=== PATIENT | male | born 1980 | race Caucasian/White ===

== ENCOUNTER 2021-06-03 20:08 | Emergency (ER) | payer BC ==
[~2021-06-03] VITALS: Ht 182.9 cm; Wt 136.4 kg
[2021-06-03 21:12] LABS: BASOPHILS % (AUTO) 0.4 % (0-1); EOSINOPHILS % (AUTO) 0.5 % (0-6); HEMATOCRIT 41.9 % (42.0-52.0); HEMOGLOBIN 14.3 g/dl (14.0-17.9); LYMPHOCYTES # (AUTO) 2.1 X10'3 (1.1-4.8); LYMPHOCYTES % (AUTO) 30.8 % (21-51); MEAN CORPUSCULAR HEMOGLOBIN 30.5 PG (27.0-31.0); MEAN CORPUSCULAR HGB CONC 34.1 g/dL (33.0-36.5); MEAN CORPUSCULAR VOLUME 89.4 FL (78-98); MEAN PLATELET VOLUME 7.4 FL (7.4-10.4); MONOCYTES # (AUTO) 0.6 X10'3 (0-0.9); MONOCYTES % (AUTO) 8.3 % (2-12); NEUTROPHILS # (AUTO) 4.2 X10'3 (1.8-7.7); PLATELET COUNT 308 X10'3 (140-440); RED BLOOD COUNT 4.69 X10'6 (4.70-6.10); RED CELL DISTRIBUTION WIDTH 13.9 % (11.5-14.5); WHITE BLOOD COUNT 6.9 X10'3 (4.5-11.0)
[2021-06-03 21:25] LABS: ALANINE AMINOTRANSFERASE 21 U/L (12-78); ALBUMIN 4.1 G/DL (3.4-5.0); ALBUMIN/GLOBULIN RATIO 1.1 (1.1-1.5); ALKALINE PHOSPHATASE 107 IU/L (46-116); ANION GAP 13 (8-16); ASPARTATE AMINO TRANSFERASE 45 U/L (10-37); BILIRUBIN,TOTAL 0.7 MG/DL (0.1-1.0); BLOOD UREA NITROGEN 14 MG/DL (7-18); BUN/CREATININE RATIO 16.7 (5.4-32.0); CALCIUM 8.9 MG/DL (8.5-10.1); CHLORIDE 97 MMOL/L (99-107); CREATININE 0.84 MG/DL (0.60-1.10); GLUCOSE 101 MG/DL (70-104); POTASSIUM 3.9 MMOL/L (3.5-5.1); SODIUM 138 MMOL/L (135-145); TOTAL PROTEIN 7.8 G/DL (6.4-8.2); eGFR > 90 ML/MIN
[2021-06-03] MEDS ORDERED: LIDOcaine 1% W/epiNEPHrine 1:200,000 10ml vial IJ ONE (23:00)
[2021-06-03] MEDS ORDERED: TETanus/Pertussis (Acell)/Diphther VAC/PF (Tdap-Adult) 0.5ml syringe IMVAC ONE (23:00)
[2021-06-03] MEDS ORDERED: bacitracin 15gm ointment TP ONE (23:00)
[2021-06-03] MEDS ORDERED: cephalexin 500mg capsule PO ONE (23:40)
[2021-06-03] MEDS ORDERED: sulfamethoxazole/trimethoprim DS (800/160mg) tablet PO ONE (23:40)
[2021-06-03] MEDS ORDERED: MUPI22OI30 TOP (23:42)
[2021-06-03] MEDS ORDERED: CEPH250T PO (23:42)
[2021-06-03] MEDS ORDERED: SULF1TAB45 PO (23:42)
[2021-06-04 00:58] VITALS: BP 162/107
== END 2021-06-04 00:30 | disposition home or self-care (01) ==
LOC: ER 20:09
DX: S01.112A Laceration without foreign body of left eyelid and periocular area, initial encounter (principal); R51.9 Headache, unspecified; R11.10 Vomiting, unspecified; Z20.3 Contact with and (suspected) exposure to rabies; Z79.2 Long term (current) use of antibiotics; Z79.899 Other long term (current) drug therapy; X58.XXXA Exposure to other specified factors, initial encounter; Y93.89 Activity, other specified; Y92.89 Other specified places as the place of occurrence of the external cause; Y99.8 Other external cause status
CPT/HCPCS: 12011; 36415; 70450; 80053; 85025; 90471; 90715; 99284

== ENCOUNTER 2021-06-14 11:50 | Emergency (ER) | payer BC ==
[~2021-06-14] VITALS: Ht 188 cm; Wt 127.3 kg
[~2021-06-14 11:50] MED LIST: SULF1TAB45 PO
[2021-06-14 12:58] VITALS: BP 121/75
[2021-06-14] MEDS ORDERED: LITH600C PO (22:55)
[2021-06-14] MEDS ORDERED: LURA80TA3 PO (22:56)
[2021-06-14] MEDS ORDERED: TRAZ150T78 PO (22:56)
== END 2021-06-14 13:40 | disposition home or self-care (01) ==
LOC: ER 11:51
DX: S50.811A Abrasion of right forearm, initial encounter (principal); F10.229 Alcohol dependence with intoxication, unspecified; I10 Essential (primary) hypertension; E86.0 Dehydration; Z48.02 Encounter for removal of sutures; Z79.899 Other long term (current) drug therapy; W19.XXXA Unspecified fall, initial encounter; Y93.89 Activity, other specified; Y92.89 Other specified places as the place of occurrence of the external cause; Y99.8 Other external cause status; Y90.9 Presence of alcohol in blood, level not specified
CPT/HCPCS: 99283

== ENCOUNTER 2021-06-14 17:33 | Emergency (ER) | payer BC ==
[~2021-06-14] VITALS: Ht 182.9 cm; Wt 127.3 kg
[2021-06-14] MEDS ORDERED: folic acid 1mg/0.2ml inj IV ONE (17:40)
[2021-06-14] MEDS ORDERED: ondansetron/PF 4mg/2ml inj IV ONE (17:40)
[2021-06-14] MEDS ORDERED: thiamine 100mg/ml 2ml inj. IV ONE (17:40)
[2021-06-14] MEDS ORDERED: normal saline 1000ML IV soln IV ONE (17:40)
[2021-06-14 18:12] LABS: BASOPHILS % (AUTO) 0.6 % (0-1); EOSINOPHILS % (AUTO) 0 % (0-6); HEMATOCRIT 44.9 % (42.0-52.0); HEMOGLOBIN 15.2 g/dl (14.0-17.9); LYMPHOCYTES # (AUTO) 1.8 X10'3 (1.1-4.8); LYMPHOCYTES % (AUTO) 37.8 % (21-51); MEAN CORPUSCULAR HGB CONC 33.9 g/dL (33.0-36.5); MEAN CORPUSCULAR VOLUME 88.5 FL (78-98); MEAN PLATELET VOLUME 7.9 FL (7.4-10.4); MONOCYTES # (AUTO) 0.5 X10'3 (0-0.9); MONOCYTES % (AUTO) 11.5 % (2-12); NEUTROPHILS # (AUTO) 2.4 X10'3 (1.8-7.7); NEUTROPHILS % (AUTO) 50.1 % (42-75); PLATELET COUNT 129 X10'3 (140-440); RED BLOOD COUNT 5.07 X10'6 (4.70-6.10); RED CELL DISTRIBUTION WIDTH 14.2 % (11.5-14.5); WHITE BLOOD COUNT 4.7 X10'3 (4.5-11.0)
[2021-06-14 18:16] LABS: ALANINE AMINOTRANSFERASE 40 U/L (12-78); ALBUMIN 3.6 G/DL (3.4-5.0); ALBUMIN/GLOBULIN RATIO 0.9 (1.1-1.5); ALKALINE PHOSPHATASE 135 IU/L (46-116); ANION GAP 12 (8-16); ASPARTATE AMINO TRANSFERASE 76 U/L (10-37); BILIRUBIN,TOTAL 0.4 MG/DL (0.1-1.0); BLOOD UREA NITROGEN 9 MG/DL (7-18); BUN/CREATININE RATIO 8.4 (5.4-32.0); CHLORIDE 94 MMOL/L (99-107); CREATININE 1.07 MG/DL (0.60-1.10); GLUCOSE 96 MG/DL (70-104); POTASSIUM 3.6 MMOL/L (3.5-5.1); SODIUM 137 MMOL/L (135-145); TOTAL CARBON DIOXIDE 31.4 MMOL/L (24-32); TOTAL PROTEIN 7.4 G/DL (6.4-8.2); eGFR 77 ML/MIN
[2021-06-14 18:30] LABS: ETHANOL 0.433 GM/DL (0.0-0.010)
[2021-06-14 20:14] LABS: CLARITY,URINE CLEAR (Clear); COLOR,URINE YELLOW (Yellow); GLUCOSE, URINE NEGATIVE (Neg); KETONES,URINE NEGATIVE (Neg); LEUKOCYTE ESTERASE ,URINE NEGATIVE (Neg); NITRITES, URINE NEGATIVE (Neg); OCCULT BLOOD,URINE LARGE (Neg); PROTEIN,URINE TRACE mg/dl (Neg)
[2021-06-14 20:28] LABS: URINE AMPHETAMINE SCREEN NEGATIVE (Neg); URINE BARBITUATE SCREEN NEGATIVE (Neg); URINE BENZODIAZEPINES SCREEN NEGATIVE (Neg); URINE CANNABINOID SCREEN NEGATIVE (Neg); URINE COCAINE SCREEN NEGATIVE (Neg); URINE METHADONE SCREEN NEGATIVE (Neg); URINE OPIATE SCREEN NEGATIVE (Neg); URINE PHENCYCLIDINE SCREEN NEGATIVE (Neg)
[2021-06-14 20:51] LABS: UA COLLECTION TYPE CLN CATCH MIDSTREAM
[2021-06-14 20:53] LABS: BACTERIA,URINE NONE SEEN /HPF (Neg); SQUAMOUS EPITHELIAL CELL,UR FEW /LPF (FEW); WBC,URINE NONE SEEN /HPF (0-4)
--- NOTE | 2021-06-14 22:33 | NUR ---
PT WITH PIV AND GIVEN FOLIC ACID AND THIAMINE AND 3 LITERS NS BOLUS INFUSED. PT IS A&OX4 AND POLITE AND COOPERTIVE. HE REPROTS STILL WANTING TO KILL HIMSELF BY ALCOHOL. STATES SEVERE DEPRESSION. HE MOVED HERE RECENTLY FROM [place] ([facility]), AND HE HAS BEEN WORKING CONCRETE WITH HIS BROTHERS. STATES HE WAS SOBER FOR 90 DAYS AND 10 DAYS AGO HE DROVE BY A LIQUOR STORE AND DECIDED TO PURCHASE LIQUOR AND HAS BEEN BINGE DRINKING SINCE. REPORTS HE STOPPED TAKING HIS LATUDA, LITHIUM AND TRAZADONE ABOUT 1 WEEK AGO. STATES HISTORY OF INPT PSYCHIATRIC TREATMENT AND THAT HE IS BIPOLAR AND HAS DEPRESSION. 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 PT WAS JUST UP TO BR TO VOID, AMBULATING INDEPENDANTLY WITH STEADY GAIT NOW AND ROLLING IV POLE WITH HIM. PT REQUESTED TO HAVE A WITHDRAWL PROTOCOL ORDERED HE STATES HE CAN HAVE SEVERE WIRTHDRAWL. REPORTS NEVER HAVING A SEIZURE. MESSAGE LEFT WITH JOAQUIN CATES OF THIS REQUEST. PT NOW LYING IN HIS BED ON HIS RIGHT SIDE WITH BLANKETS COVERING TO HIS SHOUDERS. RR 16 AND UNLABORED. SITTER AND RN WITHIN VIEW OF PT AAT.
--- NOTE | 2021-06-14 22:48 | NUR ---
JOAQUIN CATES UPDATED THAT PT CONTINUES WITH NAUSEA. VERBAL RECEIVED FOR COMPAZINE. JOAQUIN REPORTS HE IS NOT WORRIED ABOUT PT WITHDRAWING LAST DRINK WAS JUST BEFORE COMING TO ER THIS EVENING.
[2021-06-14] MEDS ORDERED: proCHLORperazine 10 MG/2 ml inj IV ONE (22:50)
[2021-06-14] MEDS ORDERED: LITH600C PO (22:55)
[2021-06-14] MEDS ORDERED: TRAZ150T78 PO (22:56)
[2021-06-14] MEDS ORDERED: LURA80TA3 PO (22:56)
--- NOTE | 2021-06-15 01:29 | NUR ---
PT UP TO BR TO VOID. 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
[2021-06-15] MEDS ORDERED: ondansetron/PF 4mg/2ml inj IV ONE (05:25)
[2021-06-15 05:50] VITALS: BP 161/112
--- NOTE | 2021-06-15 06:46 | NUR ---
Patient up to bathroom, gait appeared steady, and then back to bed.
[2021-06-15] MEDS ORDERED: proCHLORperazine 10mg tablet PO ONE (07:35)
[2021-06-15] MEDS ORDERED: LORazepam 1 MG tablet PO ONE (07:35)
[2021-06-15] MEDS ORDERED: proCHLORperazine 10 MG/2 ml inj IV ONE (07:40)
[2021-06-15] MEDS ORDERED: LORazepam 2 mg/ml vial IV ONE (07:40)
[2021-06-15] MEDS ORDERED: chlordiazePOXIDE 25mg capsule PO ONE (07:45)
[2021-06-15] MEDS ORDERED: lithium carbonate 150mg capsule PO SCH (08:00)
--- NOTE | 2021-06-15 08:14 | NUR ---
Given ativan for shakiness/ etoh withdrawals and some compazine for nausea. Pt also given librium and educated on its use for etoh. Now sitting up eating breakfast
--- NOTE | 2021-06-15 09:51 | NUR ---
up to bathroom, states he feels a little better after the medications given
--- NOTE | 2021-06-15 12:27 | NUR ---
resting with eyes closed
--- NOTE | 2021-06-15 13:49 | NUR ---
[facility] accepting patient
--- NOTE | 2021-06-15 15:06 | NUR ---
resting with eyes closed
--- NOTE | 2021-06-15 15:35 | NUR ---
Resting in bed on right side.
[2021-06-15] MEDS ORDERED: traZODone 150mg tablet PO SCH (21:00)
[2021-06-15] MEDS ORDERED: lurasidone 20mg tablet PO SCH (21:00)
== END 2021-06-15 16:12 | disposition home or self-care (01) ==
LOC: ER 17:33
DX: F10.129 Alcohol abuse with intoxication, unspecified (principal); R45.851 Suicidal ideations; Z20.822 Contact with and (suspected) exposure to COVID-19; Z59.0 Homelessness; Y90.0 Blood alcohol level of less than 20 mg/100 ml
CPT/HCPCS: 36415; 80053; 80305; 80320; 81001; 84443; 85025; 87635; 96361; 96374; 96375; 96376; 99285; C9803; J0780; J2060; J2405; J3411; J3490; J7030

== ENCOUNTER 2021-06-15 14:26 | Inpatient (IN) | payer BC ==
[~2021-06-15] VITALS: Ht 182.9 cm; Wt 139.0 kg
[~2021-06-15 14:26] MED LIST changes: +LITH600C PO; +LURA80TA3 PO; -SULF1TAB45 PO; +TRAZ150T78 PO
[2021-06-15 16:35] VITALS: BP 135/99
--- NOTE | 2021-06-15 16:35 | NUR ---
Pt. is admitted from ER [facility] on 5150 for suicide attempt. Pt. reports this past weekend he attempted to hang himself but failed. Pt. reports SI with plan to hang himself. Pt. also reports heavy drinking for the past 10 days, drinking 2 liters of 100 proof vodka daily for 8 days and then 2 days of multiple beers. Pt. reports 90 ago he was in a detox program and going through withdrawals. Provider called and pt. placed on [facility] protocol with Q1 hour assessments. Pt. scored 22 on initial assessment. Pt. given now dose of Ativan 2mg and Zofran 8mg. Pt. reports visual hallucinations reports, seeing white lights. Pt. is A&Ox3, not to time. Pt. reports taking a falling and hitting his head this past Monday, pt. reports CT scan was done. Pt. given dinner tray and ate.
[2021-06-15] MEDS ORDERED: loperamide 2mg capsule PO PRN (16:55)
[2021-06-15] MEDS ORDERED: mag hydrox/Alum hydrox/simeth 30ml oral suspension PO PRN (16:55)
[2021-06-15] MEDS ORDERED: acetaminophen 325mg tablet PO PRN ×2 (16:55)
[2021-06-15] MEDS ORDERED: magnesium hydroxide 30ml (MOM) UD suspension PO PRN (16:55)
[2021-06-15] MEDS ORDERED: traZODone 50mg tablet PO PRN (16:55)
[2021-06-15] MEDS ORDERED: LORazepam 1 MG tablet PO ONE (17:35)
[2021-06-15] MEDS ORDERED: ondansetron 4mg rapidly disintigrating tab PO PRN (17:40)
[2021-06-15 20:00] VITALS: BP 135/89
[2021-06-15] MEDS: lithium carbonate 150mg capsule PO SCH (20:13)
[2021-06-15] MEDS: traZODone 150mg tablet PO SCH (20:13)
[2021-06-15] MEDS: gabapentin 300mg capsule PO SCH (20:38)
[2021-06-15] MEDS: LORazepam 1 MG tablet PO PRN (23:25)
--- NOTE | 2021-06-16 04:30 | NUR ---
Nursing Progress Note: Ambrocio Legal hold: 5150 Expires 06/18/21 @ 9170 Client on involuntary status for DTS. Report received from Palmira MILLER with use of SBAR . Why are they here: Pt. is admitted from ER overflow on 5149 for suicide attempt. Pt. reports this past weekend he attempted to hang himself but failed. Pt. reports SI with plan to hang himself. Pt. also reports heavy drinking for the past 10 days, drinking 2 liters of 100 proof vodka daily for 8 days and then 2 days of multiple beers. Pt. reports 90 ago he was in a detox program and going through withdrawals. Provider called and pt. placed on CIWA protocol with Q1 hour assessments. Pt. scored 22 on initial assessment. Pt. given now dose of Ativan 2mg and Zofran 8mg. Pt. reports visual hallucinations reports, seeing white lights. Pt. is A&Ox3, not to time. Pt. reports taking a falling and hitting his head this past Monday, pt. reports CT scan was done. Assessment What has happened this shift: Received pt lying in bed awake, pt calm and cooperative with care. Pt states he has +SI with a plan to hang himself however he contracts for safety here. HE states he thinks about his daughter and that is the reason he stops himself from acting out. Pt states he just moved here from [facility] and was living with his and daughter, he stopped taking his meds and decided to start drinking again. He states he spirals out of control, drinking 2 bottles of vodka for the last 10 days, last drink being yesterday. He feels shame and guilt, he wants to end the pain but he thinks about his daughter and thats what keeps him focused. CIWA assessment done every hour. Patients anxiety rated at 4/10, 1MG Ativan given with good effect. Patient diaphoretic and complains of general body ache, declines Tylenol. Pt slept fairly well during the night. S/I, H/I: +SI, with plans to hang himself A/VH: +VH, seeing white spots Sleep: ADL's: Independent Group attendance: Were meds taken: Yes, declined Neurontin Any med S/E: N/A Mental Status Exam Appearance: Clean, dressed in green scrubs Eye contact: good Behavior: Cooperative, anxious, depressed Speech: Clear, audible, normal rate and rhythm Mood: Depressed Affect: Depressed Thought process: Feelings of shame and guilt Thought Content: Feeling anxious Cognition: A&O Insight: Poor Judgment: Poor Interventions PRN's used: None. Therapeutic interventions: 1:1 assessment, establishment of rapport, therapeutic conversation, active listening, ensured contract for safety, medication administration/education/monitoring, provided distraction, redirection, encouragement, and positive reinforcement, Q 15 minute safety checks. CIWA per Dr Meyer. Restraints/seclusion/emergency medication: None Justification of Continued Inpatient Treatment: Patient is here for a suicide attempt. Patient requires interruption of current crisis, medication management and monitoring, and a safe and supportive environment.
[2021-06-16] MEDS: lithium carbonate 150mg capsule PO SCH ×2 (07:04→20:32)
[2021-06-16] MEDS: LORazepam 1 MG tablet PO PRN ×4 (07:04→23:31)
[2021-06-16] MEDS: gabapentin 300mg capsule PO SCH ×3 (07:04→20:36)
[2021-06-16] MEDS: multivitamins, therapeutics tablet PO SCH (07:04)
[2021-06-16] MEDS: folic acid 1mg tablet PO SCH (07:04)
[2021-06-16 07:06] LABS: HEMOGLOBIN A1C 5.7 % (4.5-6.2)
[2021-06-16 07:16] LABS: CHOL/HDL RATIO 1.5 (0.00-4.99); CHOLESTEROL 206 MG/DL (0-200); HDL CHOLESTEROL 134 MG/DL (35-60); LDL CHOLESTEROL 35 MG/DL (50-100); TRIGLYCERIDES 32 MG/DL (20-135)
[2021-06-16 08:00] VITALS: BP 135/75
[2021-06-16] MEDS ORDERED: thiamine 100mg tablet PO ONE (08:00)
--- NOTE | 2021-06-16 14:44 | NUR ---
Completed and faxed referral to [facility] for follow up upon discharge. RAHAT Montenegro
--- NOTE | 2021-06-16 17:32 | NUR ---
Nursing Progress Note: HEATHER Legal hold: 5150 Expires 06/18/21 @ 5896 Client on involuntary status for DTS. Report received from ANGELA Morgan with use of SBAR . Why are they here: Pt. is admitted from ER overflow on 5149 for suicide attempt. Pt. reports this past weekend he attempted to hang himself but failed. Pt. reports SI with plan to hang himself. Pt. also reports heavy drinking for the past 10 days, drinking 2 liters of 100 proof vodka daily for 8 days and then 2 days of multiple beers. Pt. reports 90 ago he was in a detox program and going through withdrawals. Provider called and pt. placed on CIWA protocol with Q1 hour assessments. Pt. scored 22 on initial assessment. Pt. given now dose of Ativan 2mg and Zofran 8mg. Pt. reports visual hallucinations reports, seeing white lights. Pt. is A&Ox3, not to time. Pt. reports taking a falling and hitting his head this past Monday, pt. reports CT scan was done. Assessment What has happened this shift: Received patient sleeping at shift change, no distress noted. Pt aroused to name. Patient diaphoretic and complained of general body aches and nausea. Declined Tylenol and Zofran. Pt CIWA score was 8, so 1 mg Ativan was administered with effect. Pt was pleasant and cooperative with care and medication. Pt woke ate breakfast then returned to his room to sleep. Per Dr. Meyer CIRICK assessment was changed to q6hrs. Pt is depressed and remorseful. Pt continues to endorse suicidal thoughts of hanging himself if Im truthful. Pt states he wants to live and is tired of being that glynn. Pts denies AH, but states I see white spots, not sure what that means. Pt states I am tired of letting people down. Pt isolated to his room sleeping. He attends all meals with good appetite. S/I, H/I: +SI, with plans to hang himself. I want to live. A/VH: +VH, seeing white spots Sleep: 8.75 hours per sleep assessment. Slept intermittently throughout shift. ADL's: Independent Group attendance: No scheduled group today. Were meds taken: Yes, without issue. Any med S/E: N/A Mental Status Exam Appearance: Clean, disheveled, short horne. Dressed in green scrubs Eye contact: Good Behavior: Cooperative, fatigued, depressed. Isolated to his bed. Up for meals. Speech: Clear, audible, normal rate and rhythm Mood: Depressed Affect: Depressed Thought process: Feelings of shame and guilt Thought Content: Feeling anxious Cognition: A&O x4 Insight: Poor Judgment: Poor Interventions PRN's used: None. Therapeutic interventions: 1:1 assessment, establishment of rapport, therapeutic conversation, active listening, ensured contract for safety, medication administration/education/monitoring, provided distraction, redirection, encouragement, and positive reinforcement, Q 15 minute safety checks. CIWA per Dr Meyer. Restraints/seclusion/emergency medication: None Justification of Continued Inpatient Treatment: Patient is here for a suicide attempt. Patient requires interruption of current crisis, medication management and monitoring, and a safe and supportive environment.
[2021-06-16 20:00] VITALS: BP 153/97
[2021-06-16] MEDS: traZODone 150mg tablet PO SCH (20:31)
--- NOTE | 2021-06-17 02:32 | NUR ---
Nursing Progress Note: HEATHER Legal hold: 5150 Expires 06/18/21 @ 8550 Client on involuntary status for DTS. Report received from Ajay MILLER with use of SBAR . Why are they here: Pt. is admitted from ER overflow on 5149 for suicide attempt. Pt. reports this past weekend he attempted to hang himself but failed. Pt. reports SI with plan to hang himself. Pt. also reports heavy drinking for the past 10 days, drinking 2 liters of 100 proof vodka daily for 8 days and then 2 days of multiple beers. Pt. reports 90 ago he was in a detox program and going through withdrawals. Provider called and pt. placed on CIWA protocol with Q1 hour assessments. Pt. scored 22 on initial assessment. Pt. given now dose of Ativan 2mg and Zofran 8mg. Pt. reports visual hallucinations reports, seeing white lights. Pt. is A&Ox3, not to time. Pt. reports taking a falling and hitting his head this past Monday, pt. reports CT scan was done. Assessment What has happened this shift: Received patient up in the rec room watching TV, no distress noted. Pts BP slightly elevated, 153/94, Casandra MILLER from day shift notified Dr Meyer, 1MG Ativan given with good effect. Pts BP 119/80. Pt continued to be on CIWA every 6 hours. Pt states he is more hopeful, he talked with his dad today which he hadnt done in over 15 days. He also go to talk to his brother so it was nice to talk with him as well. Pt up for a snack, took all prescribed medication without issue. S/I, H/I: +SI (somewhat) does not have a plan A/VH: +VH, seeing white spots Sleep: ADL's: Independent Group attendance: No scheduled group today. Were meds taken: Yes, without issue. Any med S/E: N/A Mental Status Exam Appearance: Clean, disheveled, short horne. Dressed in green scrubs Eye contact: Good Behavior: Cooperative, fatigued, depressed. Isolated to his bed. Up for meals. Speech: Clear, audible, normal rate and rhythm Mood: Depressed Affect: Depressed Thought process: Feelings of shame and guilt Thought Content: Feeling anxious Cognition: A&O x4 Insight: Poor Judgment: Poor Interventions PRN's used: None. Therapeutic interventions: 1:1 assessment, establishment of rapport, therapeutic conversation, active listening, ensured contract for safety, medication administration/education/monitoring, provided distraction, redirection, encouragement, and positive reinforcement, Q 15 minute safety checks. CIWA per Dr Meyer. Restraints/seclusion/emergency medication: None Justification of Continued Inpatient Treatment: Patient is here for a suicide attempt. Patient requires interruption of current crisis, medication management and monitoring, and a safe and supportive environment.
[2021-06-17 07:24] VITALS: BP 113/81
[2021-06-17] MEDS: multivitamins, therapeutics tablet PO SCH (07:43)
[2021-06-17] MEDS: folic acid 1mg tablet PO SCH (07:43)
[2021-06-17] MEDS: gabapentin 300mg capsule PO SCH ×3 (07:43→20:40)
[2021-06-17] MEDS: lithium carbonate 150mg capsule PO SCH ×2 (07:44→20:40)
--- NOTE | 2021-06-17 09:08 | NUR ---
PSYCHOSOCIAL ASSESSMENT Met with Ambrocio to complete psychosocial assessment. Ambrocio is a 41 y/o male who was placed on 515 for danger to self. He had presented to [facility] on 06/14/21 around noon via EMS after he had fallen outside of [facility] where he had been staying. He was intoxicated and had an abrasion to his arm and his head. He was discharged from the ED, went to a gas station and consumed more alcohol. He was found down and was returned to the ED via EMS a couple hours later. He made suicidal statements to staff and was placed on 1798. He stated, "I just want to ". He also reported he tried to hang himself recently. Ambrocio reported he recently moved to [place] 4-5 weeks ago with his family. He currently lives with his parents. He works with his 3 brothers at [employer]. 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 His kicked him out around the same time he got a DUI Dec 2019. He lost his job due to the DUI and he has to forfeit his license for 3 years (he reported due to Covid it took about a year for him to go to court for it). He reported he went to rehab at [facility] after he lost his job for about 60 days. He reported he was sober for about 90 before he relapsed. He relapsed while living in his parents home about 2 weeks ago. His parents kicked him out due to his alcohol use. He stayed at [facility] for 5 days and gave someone $1000 who he saw in the hallway at [facility]. He also reported he ordered a ton of room service that he did not eat. He reported he left his phone at his parents house on purpose and did not have any contact with anyone for 15 days. He finally called his dad once he got to [facility]. He reported he was feeling depressed, lonely, and had stopped taking his medications when he relapsed. He reported he has been to rehab 4 times in the last 4 years. He reported a 20 year history of alcohol use. He noted he is not sure if he wants to go back to rehab. He reported he would like to return to his parents house and to his job. He reported he thinks that may be more helpful than going to rehab. He is also doing his DUI classes via zoom through a place in [place] and his concerned that he has missed a couple classes. Ambrocio reported he was diagnosed with Bipolar about 4 years ago. He has been hospitalized a couple times due to being suicidal. He reported he tried to strangle himself with a cord while staying at the [facility]. MSE: A/O: oriented x's 4 Appearance: tall, overweight 41 y/o male, wearing baseball cap, facial hair, wearing green scrubs Behavior: cooperative Speech: WNL Mood: depressed, hopeless Affect: congruent to mood Thought Process: WNL Thought Content: goal directed Plan: Cyber Forensics Analyst will assist with discharge plan and referrals for psychiatrist, therapist, and in-patient or out-patient alcohol txRAHAT Dhillon Addendum: 06/17/21 at 0914 by Osiris BEST Amended: Links added.
--- NOTE | 2021-06-17 10:01 | NUR ---
Faxed letter stating Ambrocio is currently in the hospital to [facility]ino[facility], ( ), at his request. RAHAT Montenegro
--- NOTE | 2021-06-17 12:03 | NUR ---
PHONE CALL W/MOTHER Called Ambrocio's mother, Sandra (ph# [phone]), at his request. She reported Ambrocio can return home as long as he remains sober. Informed her that he called and left a message about a job in [place] and she was relieved he was able to do to that. Informed her that he said he would like to look for a sober living home after discharge. Ambrocio also called [facility] and has an intake appt for therapy on 07/14/21. Sandra thanked telegraphic typewriter operator for calling. RAHAT Montenegro
[2021-06-17] MEDS: LORazepam 1 MG tablet PO PRN ×2 (13:04→18:46)
--- NOTE | 2021-06-17 17:54 | NUR ---
Nursing Progress Note: Legal hold: 5150 Expires 06/18/21 @ 0395 Client on involuntary status for DTS Report received from RN with use of SBAR Why are they here: Pt. is admitted from ER overflow on 5149 for suicide attempt. Pt. reports this past weekend he attempted to hang himself but failed. Pt. reports SI with plan to hang himself. Pt. also reports heavy drinking for the past 10 days, drinking 2 liters of 100 proof vodka daily for 8 days and then 2 days of multiple beers. Pt. reports 90 ago he was in a detox program and going through withdrawals. Provider called and pt. placed on CIWA protocol with Q1 hour assessments. Pt. scored 22 on initial assessment. Pt. given now dose of Ativan 2mg and Zofran 8mg. Pt. reports visual hallucinations reports, seeing white lights. Pt. is A&Ox3, not to time. Pt. reports taking a falling and hitting his head this past Monday, pt. reports CT scan was done. Assessment What has happened this shift: Pt in bed sleeping w/o distress at the beginning of the shift. Pt woke and was cooperative with vitals and AM assessments. Pt took scheduled meds w/o issue. Pts CIWA at 0605 was 5; CIWA at 1245 was 14 and Pt given Ativan 1mg. Pt napped in AM and PM and isolated to self most of the day, even when in community or recreation room watching TV. Pt spoke about his DUI and how [place] is so hard on DUIs. Pt reported forfeiting his license due to finance and other pressures from DUI. Pt admits to having ETOH addiction Im an alcoholic. Pt has vague SI with no current plan. Pt concerned about getting letter to DUI class stating he is under care of a physician. And getting phone #s off phone related to a job he may get. Able to be excited about future plans. S/I, H/I: Denies SI/HI A/VH: Having visual disturbances, not hallucinations Sleep: Napped in AM and PM ADL's: Independent Group attendance: NA Were meds taken: Yes, without issue Any med S/E: N/A Mental Status Exam Appearance: Clean, disheveled, in green scrubs Eye contact: Good Behavior: Cooperative, tired, depressed, isolative Speech: Clear, audible, normal Mood: Depressed Affect: Congruent with mood Thought process: Linear Thought Content: Talked about DUI Cognition: A&O x4 Insight: Poor Judgment: Poor Interventions PRN's used: Ativan Therapeutic interventions: 1:1 assessment, establishment of rapport, therapeutic conversation, active listening, ensured contract for safety, medication administration/education/monitoring, provided distraction, redirection, encouragement, and positive reinforcement, Q 15 minute safety checks. CIWA per Dr Meyer. Restraints/seclusion/emergency medication: None Justification of Continued Inpatient Treatment: Patient is here for a suicide attempt. Patient requires interruption of current crisis, medication management and monitoring, and a safe and supportive environment.
[2021-06-17 20:00] VITALS: BP 123/75
[2021-06-17] MEDS: traZODone 150mg tablet PO SCH (20:40)
[2021-06-17] MEDS: traZODone 50mg tablet PO SCH (21:00)
--- NOTE | 2021-06-18 02:54 | NUR ---
Nursing Progress Note: Ambrocio Legal hold: 5150 Expires 06/18/21 @ 7478 Client on involuntary status for DTS Report received from RN with use of SBAR Why are they here: Pt. is admitted from ER overflow on 5149 for suicide attempt. Pt. reports this past weekend he attempted to hang himself but failed. Pt. reports SI with plan to hang himself. Pt. also reports heavy drinking for the past 10 days, drinking 2 liters of 100 proof vodka daily for 8 days and then 2 days of multiple beers. Pt. reports 90 ago he was in a detox program and going through withdrawals. Provider called and pt. placed on CIWA protocol with Q1 hour assessments. Pt. scored 22 on initial assessment. Pt. given now dose of Ativan 2mg and Zofran 8mg. Pt. reports visual hallucinations reports, seeing white lights. Pt. is A&Ox3, not to time. Pt. reports taking a falling and hitting his head this past Monday, pt. reports CT scan was done. Assessment What has happened this shift: Pt in community room watching a movie with peers, stated he was doing a little better today. He talked again with his dad and has a lot of family support. Pts CIWA at 1845 was 14, 1MG of Ativan given with good effect. Pts CIWA at 0130 was 7, pt stated his nausea and anxiety was minimal. Pt up for a snack and took HS medication without any issue. S/I, H/I: Denies SI/HI A/VH: Having visual disturbances, seeing some shadows Sleep: ADL's: Independent Group attendance: NA Were meds taken: Yes, without issue Any med S/E: N/A Mental Status Exam Appearance: Clean, disheveled, in green scrubs Eye contact: Good Behavior: Cooperative, tired, depressed, isolative Speech: Clear, audible, normal Mood: Depressed Affect: Congruent with mood Thought process: Linear Thought Content: talking with family Cognition: A&O x4 Insight: Poor Judgment: Poor Interventions PRN's used: Ativan Therapeutic interventions: 1:1 assessment, establishment of rapport, therapeutic conversation, active listening, ensured contract for safety, medication administration/education/monitoring, provided distraction, redirection, encouragement, and positive reinforcement, Q 15 minute safety checks. CIWA per Dr Meyer. Restraints/seclusion/emergency medication: None Justification of Continued Inpatient Treatment: Patient is here for a suicide attempt. Patient requires interruption of current crisis, medication management and monitoring, and a safe and supportive environment.
[2021-06-18 08:00] VITALS: BP 137/96
[2021-06-18] MEDS: folic acid 1mg tablet PO SCH (08:00)
[2021-06-18] MEDS: multivitamins, therapeutics tablet PO SCH (08:00)
[2021-06-18] MEDS: gabapentin 300mg capsule PO SCH ×3 (08:00→20:34)
[2021-06-18] MEDS: lithium carbonate 150mg capsule PO SCH ×2 (08:01→20:34)
--- NOTE | 2021-06-18 16:17 | NUR ---
Nursing Progress Note: Legal hold: 525 Client on involuntary status for DTS Report received from RN with use of SBAR Why are they here: Pt. is admitted from ER overflow on 5150 for suicide attempt. Pt. reports this past weekend he attempted to hang himself but failed. Pt. reports SI with plan to hang himself. Pt. also reports heavy drinking for the past 10 days, drinking 2 liters of 100 proof vodka daily for 8 days and then 2 days of multiple beers. Pt. reports 90 ago he was in a detox program and going through withdrawals. Provider called and pt. placed on CIWA protocol with Q1 hour assessments. Pt. scored 22 on initial assessment. Pt. given now dose of Ativan 2mg and Zofran 8mg. Pt. reports visual hallucinations reports, seeing white lights. Pt. is A&Ox3, not to time. Pt. reports taking a falling and hitting his head this past Monday, pt. reports CT scan was done. Assessment What has happened this shift: Patient was asleep at shift change, vitals done for daily as well as CIWA. CIWA scores given to Dr. Meyer, per Dr. Meyer CIWA can be TID. Patient scored very low most of the day. Patient did show a sigh of irritability when he asked about restarting his mediation and was told not yet, patient states "he just wants to keep me here one more day". Patient attended all meals, group and watched a movie with peers. S/I, H/I: Denies SI/HI A/VH: Denies "sleep really helped" Sleep: Napped in the morning ADL's: Independent Group attendance: NA Were meds taken: Yes, without issue Any med S/E: N/A Mental Status Exam Appearance: Clean, disheveled, in green scrubs Eye contact: Good Behavior: Cooperative, tired, depressed, isolative Speech: Clear, audible, normal Mood: Depressed Affect: Congruent with mood Thought process: Linear Thought Content: Talked about DUI and drinking way too much daily Cognition: A&O x4 Insight: Poor Judgment: Poor Interventions PRN's used: none needed today Therapeutic interventions: 1:1 assessment, establishment of rapport, therapeutic conversation, active listening, ensured contract for safety, medication administration/education/monitoring, provided distraction, redirection, encouragement, and positive reinforcement, Q 15 minute safety checks. CIWA per Dr Meyer changed to TID while awake Restraints/seclusion/emergency medication: None Justification of Continued Inpatient Treatment: Patient can not come up with a good safety plan if discharged home to his parents, "I don't want to be here but I don't think I could help my self if I got into a dark place" Patient needs more time in a controlled environment and medication adjustments.
[2021-06-18] MEDS ORDERED: venlafaxine XR 37.5mg cap (Q24H) PO ONE (16:20)
[2021-06-18] MEDS: LORazepam 1 MG tablet PO PRN (19:38)
[2021-06-18 19:56] VITALS: BP 130/82
[2021-06-18 20:06] VITALS: BP 130/82
[2021-06-18] MEDS: traZODone 50mg tablet PO SCH (20:34)
--- NOTE | 2021-06-19 00:59 | NUR ---
Nursing Progress Note: Ambroc[facility] Legal hold: 5250 Client on involuntary status for DTS Report received from RN with use of SBAR Why are they here: Pt. is admitted from ER overflow on 5150 for suicide attempt. Pt. reports this past weekend he attempted to hang himself but failed. Pt. reports SI with plan to hang himself. Pt. also reports heavy drinking for the past 10 days, drinking 2 liters of 100 proof vodka daily for 8 days and then 2 days of multiple beers. Pt. reports 90 ago he was in a detox program and going through withdrawals. Provider called and pt. placed on CIWA protocol with Q1 hour assessments. Pt. scored 22 on initial assessment. Pt. given now dose of Ativan 2mg and Zofran 8mg. Pt. reports visual hallucinations reports, seeing white lights. Pt. is A&Ox3, not to time. Pt. reports taking a falling and hitting his head this past Monday, pt. reports CT scan was done. Assessment What has happened this shift: Patient was up in his room talking on the phone. Pt observed in the community watching TV, pt calm and cooperative with care. Stated he feels somewhat anxious because he just had a stressful phone call with a family member. 1MG Ativan given with good effect. CIWA score at 2200, 3. Pt not very happy with his 5250 but he understands what needs to be done. Pt up for snacks, took all prescribed and went to bed, no s/s of distress noted. S/I, H/I: Denies SI/HI A/VH: Denies Sleep ADL's: Independent Group attendance: NA Were meds taken: Yes, without issue Any med S/E: N/A Mental Status Exam Appearance: Clean, disheveled, in green scrubs Eye contact: Good Behavior: Cooperative, tired, depressed, isolative Speech: Clear, audible, normal Mood: Depressed Affect: Congruent with mood Thought process: Linear Thought Content: Had a stressful day, served 5250, talked with some family members Cognition: A&O x4 Insight: Poor Judgment: Poor Interventions PRN's used: none needed today Therapeutic interventions: 1:1 assessment, establishment of rapport, therapeutic conversation, active listening, ensured contract for safety, medication administration/education/monitoring, provided distraction, redirection, encouragement, and positive reinforcement, Q 15 minute safety checks. CIWA per Dr Meyer changed to TID while awake Restraints/seclusion/emergency medication: None Justification of Continued Inpatient Treatment: Patient can not come up with a good safety plan if discharged home to his parents, "I don't want to be here but I don't think I could help my self if I got into a dark place" Patient needs more time in a controlled environment and medication adjustments.
[2021-06-19] MEDS: LORazepam 1 MG tablet PO PRN ×2 (04:18→19:28)
[2021-06-19 07:22] VITALS: BP 123/82
[2021-06-19] MEDS: venlafaxine XR 75mg capsule (Q24H) PO SCH (08:17)
[2021-06-19] MEDS: multivitamins, therapeutics tablet PO SCH (08:17)
[2021-06-19] MEDS: folic acid 1mg tablet PO SCH (08:17)
[2021-06-19] MEDS: gabapentin 300mg capsule PO SCH ×3 (08:18→21:43)
[2021-06-19] MEDS: lithium carbonate 150mg capsule PO SCH ×2 (08:18→21:43)
[2021-06-19 13:00] VITALS: BP 122/84
--- NOTE | 2021-06-19 15:44 | NUR ---
Nursing Progress Note: Legal hold: 525 Client on involuntary status for DTS Report received from RN with use of SBAR Why are they here: Pt. is admitted from ER overflow on 5150 for suicide attempt. Pt. reports this past weekend he attempted to hang himself but failed. Pt. reports SI with plan to hang himself. Pt. also reports heavy drinking for the past 10 days, drinking 2 liters of 100 proof vodka daily for 8 days and then 2 days of multiple beers. Pt. reports 90 ago he was in a detox program and going through withdrawals. Provider called and pt. placed on CIWA protocol with Q1 hour assessments. Pt. scored 22 on initial assessment. Pt. given now dose of Ativan 2mg and Zofran 8mg. Pt. reports visual hallucinations reports, seeing white lights. Pt. is A&Ox3, not to time. Pt. reports taking a falling and hitting his head this past Monday, pt. reports CT scan was done. Assessment What has happened this shift: Patient was asleep at shift change, vitals done for daily as well as CIWA. CIWA scores given to Dr. Meyer, per Dr. Meyer CIWA can be TID. Patient scored very low most of the day. Patient did show a sigh of irritability per NOC at 0430, patient states it was helpful. Patient denies any withdraw symptoms, patient remains on TID vitals per Dr. Meyer. This television writer had a long conversation with patient about "where he will go in life from here", patient states that is a good question, patient states although there is a family business I can work at I would like to have my own independence at take a job elsewhere, patient then goes on to state that his parents are in there 70's and they would like to have him around the house to help. Patient story and moods are incongruent. Patient needs more time to stabilize on his medication and come up with a good safe discharge plan to ensure his lifes safety. S/I, H/I: Denies SI/HI A/VH: Denies "sleep really helped" Sleep: Napped in the morning ADL's: Independent Group attendance: NA Were meds taken: Yes, without issue Any med S/E: N/A Mental Status Exam Appearance: Clean, disheveled, in green scrubs Eye contact: Good Behavior: Cooperative, tired, depressed, isolative Speech: Clear, audible, normal Mood: Depressed Affect: Congruent with mood Thought process: Linear Thought Content: Talked about DUI and drinking way too much daily Cognition: A&O x4 Insight: Poor Judgment: Poor Interventions PRN's used: none needed today Therapeutic interventions: 1:1 assessment, establishment of rapport, therapeutic conversation, active listening, ensured contract for safety, medication administration/education/monitoring, provided distraction, redirection, encouragement, and positive reinforcement, Q 15 minute safety checks. CIWA per Dr Meyer changed to TID while awake Restraints/seclusion/emergency medication: None Justification of Continued Inpatient Treatment: Patient can not come up with a good safety plan if discharged home to his parents, " I don't think I could help my self if I got into a dark place, I don't even know when I am there" "I end up with a bottle of 100% proof and don't even remember buying it" Patient needs more time in a controlled environment and medication adjustments.
[2021-06-19 19:53] VITALS: BP 127/84
[2021-06-19 20:06] VITALS: BP 127/84
[2021-06-19] MEDS: traZODone 50mg tablet PO SCH (21:44)
--- NOTE | 2021-06-20 01:24 | NUR ---
Nursing Progress Note: Ambrocio Legal hold: 5250 Client on involuntary status for DTS Report received from RN with use of SBAR Why are they here: Pt. is admitted from ER overflow on 5150 for suicide attempt. Pt. reports this past weekend he attempted to hang himself but failed. Pt. reports SI with plan to hang himself. Pt. also reports heavy drinking for the past 10 days, drinking 2 liters of 100 proof vodka daily for 8 days and then 2 days of multiple beers. Pt. reports 90 ago he was in a detox program and going through withdrawals. Provider called and pt. placed on CIWA protocol with Q1 hour assessments. Pt. scored 22 on initial assessment. Pt. given now dose of Ativan 2mg and Zofran 8mg. Pt. reports visual hallucinations reports, seeing white lights. Pt. is A&Ox3, not to time. Pt. reports taking a falling and hitting his head this past Monday, pt. reports CT scan was done. Assessment What has happened this shift: Patient up in his room making his bed, calm and cooperative with care. States his day was good, however expressed some depression and lack of energy. Pt requesting Ativan due to family stressors. States anxiety level 5/10, thinking about upcoming events and having to make up for it after the things he has done. Pt denies MH symptoms stating he is no longer suicidal nor having visual hallucinations. He states he is eating well and denies all other alcohol withdrawal symptoms. Pts CIWA at 2200 was 2. Pt took all HS medication and went to bed. S/I, H/I: Denies SI/HI A/VH: Denies Sleep: ADL's: Independent, showered this evening Group attendance: NA Were meds taken: Yes, without issue Any med S/E: N/A Mental Status Exam Appearance: Clean, disheveled, in green scrubs Eye contact: Good Behavior: Cooperative, tired, depressed, isolative Speech: Clear, audible, normal Mood: Depressed Affect: Congruent with mood Thought process: Linear Thought Content: family issues Cognition: A&O x4 Insight: Poor Judgment: Poor Interventions PRN's used: Ativan Therapeutic interventions: 1:1 assessment, establishment of rapport, therapeutic conversation, active listening, ensured contract for safety, medication administration/education/monitoring, provided distraction, redirection, encouragement, and positive reinforcement, Q 15 minute safety checks. CIWA per Dr Meyer changed to TID while awake Restraints/seclusion/emergency medication: None Justification of Continued Inpatient Treatment: Patient can not come up with a good safety plan if discharged home to his parents, " I don't think I could help my self if I got into a dark place, I don't even know when I am there" "I end up with a bottle of 100% proof and don't even remember buying it" Patient needs more time in a controlled environment and medication adjustments.
[2021-06-20 08:00] VITALS: BP 128/84
[2021-06-20] MEDS: venlafaxine XR 75mg capsule (Q24H) PO SCH (08:10)
[2021-06-20] MEDS: gabapentin 300mg capsule PO SCH ×3 (08:11→21:27)
[2021-06-20] MEDS: folic acid 1mg tablet PO SCH (08:11)
[2021-06-20] MEDS: lithium carbonate 150mg capsule PO SCH ×2 (08:11→21:27)
[2021-06-20] MEDS: multivitamins, therapeutics tablet PO SCH (08:11)
--- NOTE | 2021-06-20 11:40 | NUR ---
Initial: Pt admitted w/ SI, noted that pt also abused EtOH in the last 10 days. Pt is able to eat well now, mostly 100% of meals on Regular diet meeting needs. No N/V/D noted, LBM 06/18. Pt compliant w/ meds. No nutritional diagnosis at this time, will continue to monitor Recs: 1. Continue w/ Regular diet as tolerated 2. Bowel care per rx 3. Weekly wts Addendum: 06/20/21 at [address] Amended: Links added.
--- NOTE | 2021-06-20 14:41 | NUR ---
Nursing Progress Note: Legal hold: 5249 Client on involuntary status for DTS. Report received from ANGELA Morgan with use of SBAR . Why are they here: Pt. is admitted from ER overflow on 5149 for suicide attempt. Pt. reports this past weekend he attempted to hang himself but failed. Pt. reports SI with plan to hang himself. Pt. also reports heavy drinking for the past 10 days, drinking 2 liters of 100 proof vodka daily for 8 days and then 2 days of multiple beers. Pt. reports 90 ago he was in a detox program and going through withdrawals. Provider called and pt. placed on CIWA protocol with Q1 hour assessments. Pt. scored 22 on initial assessment. Pt. given now dose of Ativan 2mg and Zofran 8mg. Pt. reports visual hallucinations reports, seeing white lights. Pt. is A&Ox3, not to time. Pt. reports taking a falling and hitting his head this past Monday, pt. reports CT scan was done. Assessment What has happened this shift: Pt was up for breakfast and cooperative with medications. Pt requested his diet be changed to double protein as he has a Hx of gastric bypass surgery. Pt rated his depression at a 1/10 today, pt denied SI. Pt has no withdrawal signs or symptoms. Pt indicates that he plans on continuing to take his meds once discharged and has an appointment set up with Dr Barbosa in July. Pt has good insight. Pt identified reasons to live and is future oriented. S/I, H/I: Pt denies. A/VH: Pt denies. Sleep: Pt slept 7.25 hours per noc shift report. ADL's: Independent Group attendance: N/A Were meds taken: Yes Any med S/E: None noted or reported. Mental Status Exam Appearance: Tall heavy-set man with facial stubble wearing a baseball cap and street clothes. Eye contact: Good Behavior: Pleasant, cooperative, spends time in the milieu, likes to watch TV in the community room. Speech: Clear, audible, normal rate and rhythm Mood: Euthymic Affect: Appropriate to situation. Thought process: Organized Thought Content: Future/goal oriented, ready for discharge. Cognition: A&O x4 Insight: Good Judgment: Fair Interventions PRN's used: None. Therapeutic interventions: 1:1 assessment, establishment of rapport, therapeutic conversation, active listening, ensured contract for safety, medication administration/education/monitoring, provided distraction, redirection, encouragement, and positive reinforcement, Q 15 minute safety checks. Restraints/seclusion/emergency medication: None Justification of Continued Inpatient Treatment: Patient is here for a suicide attempt. Patient requires interruption of current crisis, medication management and monitoring, and a safe and supportive environment until stable.
[2021-06-20 19:00] VITALS: BP 108/75
[2021-06-20] MEDS: traZODone 50mg tablet PO SCH (21:27)
--- NOTE | 2021-06-21 05:36 | NUR ---
Nursing Progress Note: Legal hold: 5249 Client on involuntary status for DTS. Report received from ANGELA Morgan with use of SBAR . Why are they here: Pt. is admitted from ER overflow on 5149 for suicide attempt. Pt. reports this past weekend he attempted to hang himself but failed. Pt. reports SI with plan to hang himself. Pt. also reports heavy drinking for the past 10 days, drinking 2 liters of 100 proof vodka daily for 8 days and then 2 days of multiple beers. Pt. reports 90 ago he was in a detox program and going through withdrawals. Provider called and pt. placed on CIWA protocol with Q1 hour assessments. Pt. scored 22 on initial assessment. Pt. given now dose of Ativan 2mg and Zofran 8mg. Pt. reports visual hallucinations reports, seeing white lights. Pt. is A&Ox3, not to time. Pt. reports taking a falling and hitting his head this past Monday, pt. reports CT scan was done. Assessment What has happened this shift: This patient was out of bed and social following shift change. No distress. Patient watches television. Patient denies H/I, S/I, or any hallucinations. When Trazadone kicked in the patient politely excused himself from interview with this senior grant writer and went to bed. S/I, H/I: Pt denies. A/VH: Pt denies. Sleep: See sleep hours. ADL's: Independent. Group attendance: None on nights. Were meds taken: Yes, medication compliant. Any med S/E: None noted or reported. Mental Status Exam Appearance: Clean and well dressed. Eye contact: Good. Behavior: Cooperative, social. Speech: Clear, audible, normal rate and rhythm. Mood: Euthymic Affect: Appropriate to situation. Thought process: Linear. Thought Content: Happy about treatment here, looking to the future. Cognition: A&O x4. Insight: Good. Judgment: Good. Interventions PRN's used: None. Therapeutic interventions: 1:1 assessment, establishment of rapport, therapeutic conversation, active listening, ensured contract for safety, medication administration/education/monitoring, provided distraction, redirection, encouragement, and positive reinforcement, Q 15 minute safety checks. Restraints/seclusion/emergency medication: None Justification of Continued Inpatient Treatment: Patient is here for a suicide attempt. Patient requires interruption of current crisis, medication management and monitoring, and a safe and supportive environment until stable.
[2021-06-21 07:34] VITALS: BP 120/77
[2021-06-21] MEDS: venlafaxine XR 75mg capsule (Q24H) PO SCH (08:38)
[2021-06-21] MEDS: lithium carbonate 150mg capsule PO SCH ×2 (08:38→21:56)
[2021-06-21] MEDS: gabapentin 300mg capsule PO SCH ×2 (08:38→13:22)
[2021-06-21] MEDS: multivitamins, therapeutics tablet PO SCH (08:38)
[2021-06-21] MEDS: folic acid 1mg tablet PO SCH (08:38)
--- NOTE | 2021-06-21 14:34 | NUR ---
Pt. attended group today. We talked about how we all look at the world differently due to our core beliefs. These core beliefs then inform thoughts and behaviors. Each pt. identified one negative core belief and then wrote out three truths that contradict their negative beliefs to work on thinking differently. Pt. engaged well in the group today. He was very talkative and open with everyone in the group. He reported that he was happy to be able to attend a group. He easily was able to share his negative core belief and then came up with two positive cognitions that he felt good about. Her reported that he was very thankful for his family whom he reported are a very good support system and especially his six year old daughter. He was alert and oriented X 4. His thought content and thought process was WNL. Anuja Quispe LCSW
--- NOTE | 2021-06-21 17:52 | NUR ---
Nursing Progress Note: Ambrocio Pendleton Legal hold: 5250 Client on involuntary status for DTS Report received from ANGELA Tomlin with use of SBAR . Why are they here: Pt. is admitted from ER overflow on 5150 for suicide attempt. Pt. reports this past weekend he attempted to hang himself but failed. Pt. reports SI with plan to hang himself. Pt. also reports heavy drinking for the past 10 days, drinking 2 liters of 100 proof vodka daily for 8 days and then 2 days of multiple beers. Pt. reports 90 ago he was in a detox program and going through withdrawals. Provider called and pt. placed on CIWA protocol with Q1 hour assessments. Pt. scored 22 on initial assessment. Pt. given now dose of Ativan 2mg and Zofran 8mg. Pt. reports visual hallucinations reports, seeing white lights. Pt. is A&Ox3, not to time. Pt. reports taking a falling and hitting his head this past Monday, pt. reports CT scan was done. Assessment What has happened this shift: Patient noted sleeping in bed upon shift change. He participated for breakfast in the community room, noted socializing at the table with peers. Patient spent some time in the community room watching TV before retreating back to his room. 1:1 assessment completed, lungs CTA. Patient is very polite, composed, social, and cooperative with care. Patient endorsed to this senior copywriter that he is from [facility] and recently moved to [facility]. He was scheduled to have a job interview with a business in [place] this past week which he missed d/t hospitalization. Pt stated that he is hopeful they will still be hiring and wants to apply there again when he leaves here. Patient denies SI/HI, AH or VH. He asked this senior copywriter to use his cellphone briefly so that he can pay his bills. This senior copywriter monitored patient on is phone while he made payments. He showed a picture of his daughter on the screen-saver of his phone to this senior copywriter with a smile on his face, stating how much he loves his daughter. Patient stated that he plans to live with his parents here in [place] and stay on his medication. Patient noted that drinking alcohol exaggerates his behaviors and makes him feel worse. He was observed in group therapy today, noted talking with the vp digital marketing social media and crm and peers. He was very talkative and open with everyone in the group. He appears hopeful and looking forward to the future. Patient spent the remainder of the day wandering around the unit, socializing, and resting in his room. He participated in the community room for all meals. S/I, H/I: Pt denies A/VH: Pt denies Sleep: Pt slept 6.75 hours last night per NOC shift, one short nap today ADL's: Independent Group attendance: Yes Were meds taken: Yes Any med S/E: None noted or reported Mental Status Exam Appearance: Clean, groomed, wearing eyewear, dressed in green unit scrubs Eye contact: Good Behavior: Polite, composed, social, and cooperative with care Speech: Clear, audible Mood: Euthymic Affect: Appropriate to situation, happy and smiling during conversation Thought process: Linear Thought Content: Looking forward to the future, hopeful Cognition: Alert and oriented x4, able to make needs known Insight: Good Judgment: Good Interventions PRN's used: None Therapeutic interventions: 1:1 assessment, establishment of rapport, therapeutic conversation, active listening, ensured contract for safety, medication administration/education/monitoring, provided distraction, redirection, encouragement, and positive reinforcement, Q 15 minute safety checks. Restraints/seclusion/emergency medication: None Justification of Continued Inpatient Treatment: Patient is here for a suicide attempt. Patient requires interruption of current crisis, medication management and monitoring, and a safe and supportive environment until stable. Per Dr. Meyer, given the recent high risk behaviors, and previous serious suicide attempt, patient continues to be high risk for discharge unless his depressive symptoms are well controlled and that he exhibits no signs or symptoms of withdrawals. He will continue all other medications as prescribed. Continue milieu therapy group therapy sessions.
[2021-06-21 20:38] VITALS: BP 135/74
[2021-06-21] MEDS: traZODone 50mg tablet PO SCH (21:56)
[2021-06-21] MEDS: gabapentin 400mg capsule PO SCH (21:58)
--- NOTE | 2021-06-22 02:59 | NUR ---
Nursing Progress Note: Ambrocio Pendleton Legal hold: VOL Client on involuntary status for DTS Report received from Palmira MILLER with use of SBAR . Why are they here: Pt. is admitted from ER overflow on 515 for suicide attempt. Pt. reports this past weekend he attempted to hang himself but failed. Pt. reports SI with plan to hang himself. Pt. also reports heavy drinking for the past 10 days, drinking 2 liters of 100 proof vodka daily for 8 days and then 2 days of multiple beers. Pt. reports 90 ago he was in a detox program and going through withdrawals. Provider called and pt. placed on CIWA protocol with Q1 hour assessments. Pt. scored 22 on initial assessment. Pt. given now dose of Ativan 2mg and Zofran 8mg. Pt. reports visual hallucinations reports, seeing white lights. Pt. is A&Ox3, not to time. Pt. reports taking a falling and hitting his head this past Monday, pt. reports CT scan was done. Assessment What has happened this shift: Patient noted to be in the community room watching a movie with peers. He states he is slightly depressed with low energy. Denies MH symptoms however he said he had a dream last night that he was trying to hang himself. 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 He was up for a snack, took all prescribed medications and went to bed. S/I, H/I: Pt denies A/VH: Pt denies Sleep: ADL's: Independent Group attendance: Yes Were meds taken: Yes Any med S/E: None noted or reported Mental Status Exam Appearance: Clean, groomed, wearing eyewear, dressed in green unit scrubs Eye contact: Good Behavior: Polite, composed, social, and cooperative with care Speech: Clear, audible Mood: Euthymic Affect: Appropriate to situation, happy and smiling during conversation Thought process: Linear Thought Content: Looking forward to the future, hopeful Cognition: Alert and oriented x4, able to make needs known Insight: Good Judgment: Good Interventions PRN's used: None Therapeutic interventions: 1:1 assessment, establishment of rapport, therapeutic conversation, active listening, ensured contract for safety, medication administration/education/monitoring, provided distraction, redirection, encouragement, and positive reinforcement, Q 15 minute safety checks. Restraints/seclusion/emergency medication: None Justification of Continued Inpatient Treatment: Patient is here for a suicide attempt. Patient requires interruption of current crisis, medication management and monitoring, and a safe and supportive environment until stable. Per Dr. Meyer, given the recent high risk behaviors, and previous serious suicide attempt, patient continues to be high risk for discharge unless his depressive symptoms are well controlled and that he exhibits no signs or symptoms of withdrawals. He will continue all other medications as prescribed. Continue milieu therapy group therapy sessions.
[2021-06-22 07:00] VITALS: BP 114/70
[2021-06-22] MEDS: lithium carbonate 150mg capsule PO SCH ×2 (08:24→21:53)
[2021-06-22] MEDS: multivitamins, therapeutics tablet PO SCH (08:25)
[2021-06-22] MEDS: venlafaxine XR 75mg capsule (Q24H) PO SCH (08:25)
[2021-06-22] MEDS: folic acid 1mg tablet PO SCH (08:25)
--- NOTE | 2021-06-22 15:38 | NUR ---
Nursing Progress Note: Legal hold: 5249 Client on involuntary status for DTS Report received from Claudia MILLER with use of SBAR Why are they here: Pt. is admitted from ER overflow on 5149 for suicide attempt. Pt. reports this past weekend he attempted to hang himself but failed. Pt. reports SI with plan to hang himself. Pt. also reports heavy drinking for the past 10 days, drinking 2 liters of 100 proof vodka daily for 8 days and then 2 days of multiple beers. Pt. reports 90 ago he was in a detox program and going through withdrawals. Provider called and pt. placed on CIWA protocol with Q1 hour assessments. Pt. scored 22 on initial assessment. Pt. given now dose of Ativan 2mg and Zofran 8mg. Pt. reports visual hallucinations reports, seeing white lights. Pt. is A&Ox3, not to time. Pt. reports taking a falling and hitting his head this past Monday, pt. reports CT scan was done. Assessment What has happened this shift: Patient was asleep at shift change. Patient denies any withdraw symptoms. This underwriter mortgage loan had a long conversation with patient about "where he will go in life from here", patient states that is a good question, patient states although there is a family business I can work at I would like to have my own independence at take a job elsewhere, patient then goes on to state that his parents are in there 70's and they would like to have him around the house to help. Patient story and moods are incongruent. Patient needs more time to stabilize on his medication and come up with a good safe discharge plan to ensure his lifes safety. Again today this wrier asked patient if he has a plan in place for when he goes to a dark place?. Patient states "my plan is to stay on my meds, although that is always my plan and then I end up in places like this". Cades mood is a little brighter today than the past few days. S/I, H/I: Denies SI/HI "But I get in that place with SI quickly". A/VH: Denies Sleep: Napped in the morning ADL's: Independent Group attendance: NA Were meds taken: Yes, without issue Any med S/E: N/A Mental Status Exam Appearance: Clean, disheveled, in green scrubs Eye contact: Good Behavior: Cooperative, tired, depressed, isolative Speech: Clear, audible, normal Mood: Depressed Affect: Congruent with mood Thought process: Linear Thought Content: Talked about leaving when the time comes Cognition: A&O x4 Insight: Poor Judgment: Poor Interventions PRN's used: none needed today Therapeutic interventions: 1:1 assessment, establishment of rapport, therapeutic conversation, active listening, ensured contract for safety, medication administration/education/monitoring, provided distraction, redirection, encouragement, and positive reinforcement, Q 15 minute safety checks. CIWA per Dr Meyer changed to TID while awake Restraints/seclusion/emergency medication: None Justification of Continued Inpatient Treatment: Patient can not come up with a good safety plan if discharged home to his parents, "I just need to stay on my medication". Patient needs more time in a controlled environment and medication adjustments.
--- NOTE | 2021-06-22 15:45 | NUR ---
Patient status is Vol.
[2021-06-22 19:41] VITALS: BP 124/66
[2021-06-22] MEDS: traZODone 50mg tablet PO SCH (21:53)
[2021-06-22] MEDS: gabapentin 400mg capsule PO SCH (21:53)
--- NOTE | 2021-06-23 00:04 | NUR ---
Nursing Progress Note: Legal hold: Voluntary Report received from Katherine with use of SBAR Why are they here: [facility]. [facility] for suicide attempt. Pt. reports this past weekend he attempted to hang himself but failed. Pt. reports SI with plan to hang himself. Pt. also reports heavy drinking for the past 10 days, drinking 2 liters of 100 proof vodka daily for 8 days and then 2 days of multiple beers. Pt. reports 90 ago he was in a detox program and going through withdrawals. Provider called and pt. placed on CIMD protocol with Q1 hour assessments. Pt. scored 22 on initial assessment. Pt. given now dose of Ativan 2mg and Zofran 8mg. Pt. reports visual hallucinations reports, seeing white lights. Pt. is A&Ox3, not to time. Pt. reports taking a falling and hitting his head this past Monday, pt. reports CT scan was done. Assessment What has happened this shift: One to one with the patient to assess for severity of depressive symptoms, self harm risk. The patient has been up on the unit and socializing appropriately with others. He was very pleasant during the evening assessment. He stated that since he did not have any Gabapentin during the day he was less fatigued. He stated that he feels his mood is stable except every once in a while he gets "down on myself" He stated that he has a loving a supportive family and earlier in the day he had a long talk with his mother. He plans to live with his parents after discharge and try and find work. He did admit to having some cravings for etoh but then denied that it was a significant problem for him. S/I, H/I: Denied by the patient A/VH: denied by the patient ADL's: Independent care of ADLs and appeared well groomed Group attendance: No groups held this shift Were meds taken: yes Any med S/E denied by the patient except fatigue previously from the Gabapentin Mental Status Exam Appearance: patient overweight well groomed gentleman wearing street clothes Eye contact: WNL Behavior: Pleasant, social and no behaviors that have required staff intervention Speech: spontaneous with normal rate Mood: Improved from admit and stated he currently feels his mood is stable Affect: congruent to stated mood Thought process: logical and appropriate replies to assessment questions. Thought Content: making plans for his future and moving forward in his life Cognition: alert and oriented Insight: good Judgment: fair Justification of Continued Inpatient Treatment: Medication adjustments continue. The patient is looking forward to discharge.
[2021-06-23 07:47] VITALS: BP 99/69
[2021-06-23] MEDS: multivitamins, therapeutics tablet PO SCH (08:07)
[2021-06-23] MEDS: folic acid 1mg tablet PO SCH (08:07)
[2021-06-23] MEDS: venlafaxine XR 75mg capsule (Q24H) PO SCH (08:08)
[2021-06-23] MEDS: lithium carbonate 150mg capsule PO SCH ×2 (08:09→21:49)
--- NOTE | 2021-06-23 16:08 | NUR ---
Nursing Progress Note: Legal hold: Vol Client on involuntary status for DTS Report received from Claudia MILLER with use of SBAR Why are they here: Pt. is admitted from ER overflow on 5150 for suicide attempt. Pt. reports this past weekend he attempted to hang himself but failed. Pt. reports SI with plan to hang himself. Pt. also reports heavy drinking for the past 10 days, drinking 2 liters of 100 proof vodka daily for 8 days and then 2 days of multiple beers. Pt. reports 90 ago he was in a detox program and going through withdrawals. Provider called and pt. placed on CIWA protocol with Q1 hour assessments. Pt. scored 22 on initial assessment. Pt. given now dose of Ativan 2mg and Zofran 8mg. Pt. reports visual hallucinations reports, seeing white lights. Pt. is A&Ox3, not to time. Pt. reports taking a falling and hitting his head this past Monday, pt. reports CT scan was done. Assessment What has happened this shift: Patient was asleep at shift change. Patient states he had a restless night due to his roommates being restless and needing a lot of care, isma did not want to change rooms at this point. This database report writer had a long conversation with patient about "where he will go in life from here", patient states that is a good question, patient states although there is a family business I can work at I would like to have my own independence at take a job elsewhere, patient then goes on to state that his parents are in there 70's and they would like to have him around the house to help. Very next comment is "my dad wants me to take some time off work and just take care of my self, again my problem is taking my medication each day". Patient story and moods are incongruent. Patient needs more time to stabilize on his medication and come up with a good safe discharge plan to ensure his lifes safety. Again today this wrier asked patient if he has a plan in place for when he goes to a dark place?. Patient states "my plan is to stay on my meds, although that is always my plan and then I end up in places like this". Cades mood is a little brighter today than the past few days. S/I, H/I: Denies A/VH: Denies Sleep: Restless night ADL's: Independent Group attendance: NA Were meds taken: Yes, without issue Any med S/E: N/A Mental Status Exam Appearance: Clean, disheveled, in green scrubs Eye contact: Good Behavior: Cooperative, tired, depressed, more social today Speech: Clear, audible, normal Mood: Depressed Affect: Congruent with mood Thought process: Linear Thought Content: Talked about leaving when the time comes Cognition: A&O x4 Insight: Poor Judgment: Poor Interventions PRN's used: none needed today Therapeutic interventions: 1:1 assessment, establishment of rapport, therapeutic conversation, active listening, ensured contract for safety, medication administration/education/monitoring, provided distraction, redirection, encouragement, and positive reinforcement, Q 15 minute safety check. Restraints/seclusion/emergency medication: None Justification of Continued Inpatient Treatment: Patient can not come up with a good safety plan if discharged home to his parents, "I just need to stay on my medication". Patient needs more time in a controlled environment and medication adjustments. Patient had an increase in medication today.
[2021-06-23 19:48] VITALS: BP 122/79
[2021-06-23] MEDS: gabapentin 400mg capsule PO SCH (21:49)
[2021-06-23] MEDS: traZODone 50mg tablet PO SCH (21:49)
--- NOTE | 2021-06-24 02:12 | NUR ---
Nursing Progress Note: Legal hold: Voluntary Report received from Justin MILLER with use of SBAR Why are they here: Pt. is admitted from ER [facility] on 5150 for suicide attempt. Pt. reports this past weekend he attempted to hang himself but failed. Pt. reports SI with plan to hang himself. Pt. also reports heavy drinking for the past 10 days, drinking 2 liters of 100 proof vodka daily for 8 days and then 2 days of multiple beers. Assessment What has happened this shift: The patient was up on the unit and social with peers and staff. He is very pleasant on approach. He stated that he felt he was doing well but did admit to some feelings of being "down on myself" He stated that he did have a phone conversation with his father who was very supportive of him and that lifted his spirits. He stated that he had been up out of bed during the day and he appreciated being less fatigued during the day. He reports having some cravings for ETOH. He denied having anxiety. Stated that he thought that he would be discharged on Monday and he would be staying with his parents. S/I, H/I: Denied by the patient A/VH: denied by the patient ADL's: Independent care of ADLs and appeared well groomed Group attendance: No groups held this shift Were meds taken: yes Any med S/E denied by the patient Mental Status Exam Appearance: patient overweight well groomed gentleman wearing street clothes Eye contact: WNL Behavior: Pleasant, social and no behaviors that have required staff intervention Speech: spontaneous with normal rate Mood: Improved from admit Affect: congruent to stated mood Thought process: logical and appropriate replies to assessment questions. Thought Content: making plans for his future and moving forward in his life Cognition: alert and oriented Insight: good Judgment: fair Justification of Continued Inpatient Treatment: Medication adjustments continue. The patient is looking forward to discharge. ETOH cravings continue.
[2021-06-24] MEDS: multivitamins, therapeutics tablet PO SCH (07:48)
[2021-06-24] MEDS: folic acid 1mg tablet PO SCH (07:48)
[2021-06-24] MEDS: lithium carbonate 150mg capsule PO SCH (07:48)
[2021-06-24 08:00] VITALS: BP 125/81
[2021-06-24] MEDS ORDERED: venlafaxine XR 75mg capsule (Q24H) PO SCH (08:00)
[2021-06-24 08:37] LABS: ANION GAP 6 (8-16); BUN/CREATININE RATIO 13.7 (5.4-32.0); eGFR 88 ML/MIN
[2021-06-24 08:45] LABS: CHLORIDE 107 MMOL/L (99-107); GLUCOSE 109 MG/DL (70-104); POTASSIUM 4.4 MMOL/L (3.5-5.1); SODIUM 143 MMOL/L (135-145)
[2021-06-24 08:46] LABS: BLOOD UREA NITROGEN 13 MG/DL (7-18); CREATININE 0.95 MG/DL (0.60-1.10); TOTAL CARBON DIOXIDE 29.6 MMOL/L (24-32)
[2021-06-24 08:47] LABS: ALBUMIN 3.5 G/DL (3.4-5.0); CALCIUM 8.6 MG/DL (8.5-10.1)
[2021-06-24] MEDS ORDERED: MULT-1085 PO (13:13)
[2021-06-24] MEDS ORDERED: VENL150T3 PO (13:13)
[2021-06-24] MEDS ORDERED: LITH300T34 PO (13:13)
[2021-06-24] MEDS ORDERED: GABA-534 PO (13:13)
[2021-06-24] MEDS ORDERED: TRAZ-256 PO (13:13)
[2021-06-24] MEDS ORDERED: folic acid tablet PO (13:13)
--- NOTE | 2021-06-24 15:41 | NUR ---
Pt refused to have pictures taken Addendum: 06/24/21 at 1542 by Bro Gonzalez RN Amended: Links added.
--- NOTE | 2021-06-24 15:43 | NUR ---
Nursing Discharge Note Pt discharged from [facility] at 1540 to be picked up by his father and go live with him. Pt was in no acute physical or emotional distress and has been improving since admission. Pt was in a pleasant mood with bright affect and denies SI. Pt's valuables were inventoried and returned to him. Pt understands f/u instructions and refused nicotine replacement.
== END 2021-06-24 16:02 | disposition home or self-care (01) | DRG 885 ==
LOC: ADULT MH 16:31
PROVIDERS: ADMIT Psychiatry & Neurology Psychiatry; ATTEND Psychiatry & Neurology Psychiatry
DX: F39 Unspecified mood [affective] disorder (principal); R45.851 Suicidal ideations; F10.20 Alcohol dependence, uncomplicated; F31.81 Bipolar II disorder; F17.210 Nicotine dependence, cigarettes, uncomplicated; F41.9 Anxiety disorder, unspecified; Z98.84 Bariatric surgery status; Z59.0 Homelessness; Z79.899 Other long term (current) drug therapy; Z87.820 Personal history of traumatic brain injury
CPT/HCPCS: 36415; 80048; 80061; 80178; 83036; 87081

== ENCOUNTER 2022-02-28 12:29 | Emergency (ER) | payer BC ==
[~2022-02-28] VITALS: Ht 185.4 cm; Wt 113.6 kg
[~2022-02-28 12:29] MED LIST changes: +GABA-534 PO; +LITH300T34 PO; -LITH600C PO; -LURA80TA3 PO; +MULT-1085 PO; +TRAZ-256 PO; -TRAZ150T78 PO; +VENL150T3 PO; +folic acid tablet PO
[2022-02-28 13:06] VITALS: BP 134/92
== END 2022-02-28 16:20 | disposition left against medical advice (07) ==
LOC: ER 12:29
DX: R45.851 Suicidal ideations (principal); Z53.21 Procedure and treatment not carried out due to patient leaving prior to being seen by health care provider

== ENCOUNTER 2022-03-04 18:10 | Inpatient (IN) | payer BC ==
[~2022-03-04] VITALS: Ht 182.9 cm; Wt 123.0 kg
[2022-03-04] MEDS ORDERED: folic acid 1mg/0.2ml inj IV ONE (18:20)
[2022-03-04] MEDS ORDERED: ondansetron/PF 4mg/2ml inj IV ONE (18:20)
[2022-03-04] MEDS ORDERED: thiamine 100mg/ml 2ml inj. IV ONE (18:20)
[2022-03-04] MEDS ORDERED: normal saline 1000ML IV soln IVB ONE (18:20)
[2022-03-04 18:55] LABS: BASOPHILS % (AUTO) 0.6 % (0-1); EOSINOPHILS % (AUTO) 0.8 % (0-6); HEMATOCRIT 45.7 % (42.0-52.0); HEMOGLOBIN 15.3 g/dl (14.0-17.9); LYMPHOCYTES # (AUTO) 2.6 X10'3 (1.1-4.8); LYMPHOCYTES % (AUTO) 49.4 % (21-51); MEAN CORPUSCULAR HEMOGLOBIN 31.7 PG (27.0-31.0); MEAN CORPUSCULAR HGB CONC 33.5 g/dL (33.0-36.5); MEAN CORPUSCULAR VOLUME 94.7 FL (78-98); MEAN PLATELET VOLUME 7.5 FL (7.4-10.4); MONOCYTES # (AUTO) 0.3 X10'3 (0-0.9); MONOCYTES % (AUTO) 6.1 % (2-12); NEUTROPHILS # (AUTO) 2.3 X10'3 (1.8-7.7); NEUTROPHILS % (AUTO) 43.1 % (42-75); PLATELET COUNT 158 X10'3 (140-440); RED BLOOD COUNT 4.83 X10'6 (4.70-6.10); RED CELL DISTRIBUTION WIDTH 15.3 % (11.5-14.5); WHITE BLOOD COUNT 5.3 X10'3 (4.5-11.0)
[2022-03-04] MEDS ORDERED: cloNIDine 0.1 mg tablet PO ONE (18:55)
[2022-03-04] MEDS ORDERED: LORazepam 1 MG tablet PO ONE (18:55)
--- NOTE | 2022-03-04 18:59 | NUR ---
Patient refused oral medication. Pt taken to room 10. Unable to strip room, pt will need to be monitored for ETOH withdrawal
[2022-03-04 19:09] LABS: ALANINE AMINOTRANSFERASE 33 U/L (12-78); ALBUMIN 3.5 G/DL (3.4-5.0); ALBUMIN/GLOBULIN RATIO 0.9 (1.1-1.5); ALKALINE PHOSPHATASE 125 IU/L (46-116); ANION GAP 11 (8-16); ASPARTATE AMINO TRANSFERASE 69 U/L (10-37); BILIRUBIN,TOTAL 0.3 MG/DL (0.1-1.0); BLOOD UREA NITROGEN 11 MG/DL (7-18); BUN/CREATININE RATIO 13.1 (5.4-32.0); CALCIUM 8.2 MG/DL (8.5-10.1); CHLORIDE 101 MMOL/L (99-107); CREATININE 0.84 MG/DL (0.60-1.10); GLUCOSE 101 MG/DL (70-104); POTASSIUM 4.3 MMOL/L (3.5-5.1); SODIUM 139 MMOL/L (135-145); TOTAL CARBON DIOXIDE 27.3 MMOL/L (24-32); TOTAL PROTEIN 7.6 G/DL (6.4-8.2); eGFR > 90 ML/MIN
[2022-03-04] MEDS ORDERED: LORazepam 2 mg/ml vial IV ONE (19:15)
[2022-03-04 19:18] LABS: LIPASE 342 U/L (73-393)
[2022-03-04 19:39] LABS: CLARITY,URINE CLEAR (Clear); GLUCOSE, URINE NEGATIVE (Neg); KETONES,URINE NEGATIVE (Neg); LEUKOCYTE ESTERASE ,URINE NEGATIVE (Neg); NITRITES, URINE NEGATIVE (Neg); OCCULT BLOOD,URINE MODERATE (Neg); PH,URINE 5.5 (4.8-8.0); PROTEIN,URINE 30 mg/dl (Neg); UROBILINOGEN,URINE 0.2 E.U/dL (0.2-1.0)
[2022-03-04 19:41] LABS: COLOR,URINE AMBER (Yellow); UA COLLECTION TYPE URINAL
[2022-03-04 19:46] LABS: BACTERIA,URINE NONE SEEN /HPF (Neg); MUCUS STRANDS MANY /LPF (Neg); SQUAMOUS EPITHELIAL CELL,UR FEW /LPF (FEW); WBC,URINE 0-4 /HPF (0-4)
[2022-03-04 19:52] LABS: URINE AMPHETAMINE SCREEN NEGATIVE (Neg); URINE BARBITUATE SCREEN NEGATIVE (Neg); URINE BENZODIAZEPINES SCREEN NEGATIVE (Neg); URINE CANNABINOID SCREEN POSITIVE (Neg); URINE COCAINE SCREEN NEGATIVE (Neg); URINE METHADONE SCREEN NEGATIVE (Neg); URINE OPIATE SCREEN NEGATIVE (Neg); URINE PHENCYCLIDINE SCREEN NEGATIVE (Neg)
--- NOTE | 2022-03-04 20:35 | NUR ---
Pt pink, no acute/resp distress. Bed in lowest position, wheels locked, rail 2/2 up. Will continue to monitor for acute changes and needs. Pt laying supine, able to reposition self PRN. Will continue to monitor for acute changes and needs.
--- NOTE | 2022-03-04 22:04 | NUR ---
Pt pink, no acute/resp distress. Bed in lowest position, wheels locked, rail 2/2 up. Will continue to monitor for acute changes and needs. Pt sitting on bed, able to reposition self PRN. Will continue to monitor for acute changes and needs. Sitter at bedside.
--- NOTE | 2022-03-04 22:21 | NUR ---
Patient's packet was sent to [facility].
--- NOTE | 2022-03-04 23:19 | NUR ---
Pt pink, no acute/resp distress. Bed in lowest position, wheels locked, rail 2/2 up. Pt laying supine. Pt able to reposition self prn. Will continue to monitor for acute changes and needs.
--- NOTE | 2022-03-05 06:00 | NUR ---
Pt pink, no acute/resp distress. Bed in lowest position, wheels locked, rail 2/2 up. Pt laying left. Pt able to reposition self prn. Will continue to monitor for acute changes and needs. Handoff report to dayshift RN
--- NOTE | 2022-03-05 06:45 | NUR ---
Pt is alert and oriented. Admitted to drinking ETOH yesterday. Stated that he drank a handle of vodka and 4 tall beers.
--- NOTE | 2022-03-05 07:00 | NUR ---
Ok, per Dr. Rodas for pt to not be on the medical interpreter.
--- NOTE | 2022-03-05 08:10 | NUR ---
[facility] OFFICE DIDN'T GET MH PACKET... REFAXED
[2022-03-05] MEDS: chlordiazePOXIDE 25mg capsule PO PRN (08:31)
--- NOTE | 2022-03-05 09:00 | NUR ---
Pt ate 75% of lunch.
--- NOTE | 2022-03-05 09:10 | NUR ---
Pt is diaphoretic and stated that he has chills.
[2022-03-05] MEDS ORDERED: normal saline 1000ML IV soln IVB ONE (10:40)
[2022-03-05] MEDS ORDERED: LORazepam 2 mg/ml vial IV ONE (10:40)
[2022-03-05] MEDS ORDERED: normal saline 1000ml 1,000 ML IV ONE (10:40)
--- NOTE | 2022-03-05 10:42 | NUR ---
Placed on the bus monitor.
[2022-03-05] MEDS ORDERED: potassium CL 10mEq/100ml bag 100 ML IV PRN (11:40)
[2022-03-05] MEDS ORDERED: mag hydrox/Alum hydrox/simeth 30ml oral suspension PO PRN (11:40)
[2022-03-05] MEDS ORDERED: HYDROcodone/acetaminophen 10/325mg tab PO PRN (11:40)
[2022-03-05] MEDS ORDERED: morphine 2 MG/ML inj. syringe IV PRN ×2 (11:40)
[2022-03-05] MEDS ORDERED: diphenhydrAMINE 25mg capsule PO PRN (11:40)
[2022-03-05] MEDS ORDERED: bisacodyl 10mg suppository rectal RC PRN (11:40)
[2022-03-05] MEDS ORDERED: acetaminophen 650mg rectal suppository RC PRN (11:40)
[2022-03-05] MEDS ORDERED: ondansetron/PF 4mg/2ml inj IV PRN (11:40)
[2022-03-05] MEDS ORDERED: HYDROcodone/acetaminophen 5mg/325mg tablet PO PRN (11:40)
[2022-03-05] MEDS ORDERED: magnesium 2GM in 50ml NS 50 ML IV PRN (11:40)
[2022-03-05] MEDS ORDERED: magnesium hydroxide 30ml (MOM) UD suspension PO PRN (11:40)
[2022-03-05] MEDS ORDERED: acetaminophen 325mg tablet PO PRN ×2 (11:40)
[2022-03-05] MEDS ORDERED: dextrose 50%-water 50ml dispensing syringe IV PRN (11:40)
[2022-03-05] MEDS ORDERED: magnesium 4gm in 100ml NS 100 ML IV PRN (11:40)
[2022-03-05] MEDS ORDERED: magnesium Cl slow-release 64mg tablet PO PRN (11:40)
[2022-03-05] MEDS ORDERED: potassium Cl 20 mEq SR tablet PO PRN (11:40)
[2022-03-05] MEDS ORDERED: haloperidol lactate 5mg/ml inj IM PRN (11:40)
[2022-03-05 11:42] LABS: ALANINE AMINOTRANSFERASE 29 U/L (12-78); ALBUMIN 2.9 G/DL (3.4-5.0); ALBUMIN/GLOBULIN RATIO 0.9 (1.1-1.5); ALKALINE PHOSPHATASE 105 IU/L (46-116); ANION GAP 8 (8-16); ASPARTATE AMINO TRANSFERASE 71 U/L (10-37); BILIRUBIN,TOTAL 0.5 MG/DL (0.1-1.0); BLOOD UREA NITROGEN 13 MG/DL (7-18); BUN/CREATININE RATIO 15.1 (5.4-32.0); CALCIUM 8.1 MG/DL (8.5-10.1); CHLORIDE 102 MMOL/L (99-107); CREATININE 0.86 MG/DL (0.60-1.10); GLUCOSE 92 MG/DL (70-104); POTASSIUM 4.1 MMOL/L (3.5-5.1); SODIUM 137 MMOL/L (135-145); TOTAL PROTEIN 6.1 G/DL (6.4-8.2); eGFR > 90 ML/MIN
[2022-03-05 11:44] LABS: CREATINE KINASE 91 U/L (39-308)
[2022-03-05] MEDS: dextrose 5%-normal saline 1,000 ML IV SCH ×2 (12:09→20:30)
[2022-03-05 12:24] LABS: HEMOGLOBIN A1C 5.6 % (4.5-6.2)
[2022-03-05] MEDS: thiamine 100mg/ml 2ml inj. IV SCH ×2 (12:33→20:31)
--- NOTE | 2022-03-05 12:42 | NUR ---
Pt ate 90% of lunch.
--- NOTE | 2022-03-05 12:59 | NUR ---
Report given to ANGELA Dennison in PCU. Pt will be going to Room 18A when the sitter arrives.
--- NOTE | 2022-03-05 15:57 | NUR ---
Pt is shaky and diaphoretic. Soaked his bed. Complete linen change done.
[2022-03-05] MEDS: LORazepam 2 mg/ml vial IV PRN ×3 (17:13→20:49)
[2022-03-05 18:00] VITALS: BP 130/81
--- NOTE | 2022-03-05 18:30 | NUR ---
Patient in room PCU 3018. I have received report from Jesi MILLER and had the opportunity to ask questions and assume patient care.
--- NOTE | 2022-03-05 18:33 | NUR ---
Report update given to ANGELA Dorado in PCU
[2022-03-05] MEDS: docusate sod 100mg capsule PO SCH (20:00)
[2022-03-05] MEDS: K and/or MAG REPLACEMENT MC SCH (20:00)
[2022-03-05] MEDS: gabapentin 400mg capsule PO SCH (20:31)
[2022-03-05] MEDS: heparin, porcine 5000 units/ml vial SQ SCH (20:31)
[2022-03-05 22:00] VITALS: BP 119/61
[2022-03-06] MEDS: LORazepam 2 mg/ml vial IV PRN ×7 (01:56→18:00)
[2022-03-06 03:00] VITALS: BP 125/89
[2022-03-06 04:10] LABS: BASOPHILS % (AUTO) 0.3 % (0-1); EOSINOPHILS # (AUTO) 0.1 X10'3 (0-0.9); EOSINOPHILS % (AUTO) 1.3 % (0-6); HEMATOCRIT 39.9 % (42.0-52.0); LYMPHOCYTES # (AUTO) 1.1 X10'3 (1.1-4.8); LYMPHOCYTES % (AUTO) 27.9 % (21-51); MEAN CORPUSCULAR HEMOGLOBIN 31.2 PG (27.0-31.0); MEAN CORPUSCULAR HGB CONC 32.6 g/dL (33.0-36.5); MEAN CORPUSCULAR VOLUME 95.9 FL (78-98); MEAN PLATELET VOLUME 8.3 FL (7.4-10.4); MONOCYTES # (AUTO) 0.2 X10'3 (0-0.9); NEUTROPHILS # (AUTO) 2.6 X10'3 (1.8-7.7); NEUTROPHILS % (AUTO) 64.5 % (42-75); PLATELET COUNT 88 X10'3 (140-440); RED BLOOD COUNT 4.16 X10'6 (4.70-6.10); RED CELL DISTRIBUTION WIDTH 15.1 % (11.5-14.5); WHITE BLOOD COUNT 4.1 X10'3 (4.5-11.0)
[2022-03-06 04:21] LABS: ALANINE AMINOTRANSFERASE 26 U/L (12-78); ALBUMIN 2.6 G/DL (3.4-5.0); ALBUMIN/GLOBULIN RATIO 0.8 (1.1-1.5); ALKALINE PHOSPHATASE 101 IU/L (46-116); AMYLASE 90 U/L (25-115); ANION GAP 5 (8-16); ASPARTATE AMINO TRANSFERASE 48 U/L (10-37); BILIRUBIN,TOTAL 0.8 MG/DL (0.1-1.0); BLOOD UREA NITROGEN 11 MG/DL (7-18); BUN/CREATININE RATIO 14.9 (5.4-32.0); CHLORIDE 106 MMOL/L (99-107); CHOLESTEROL 219 MG/DL (0-200); CREATININE 0.74 MG/DL (0.60-1.10); GLUCOSE 79 MG/DL (70-104); LDL CHOLESTEROL 30 MG/DL (50-100); MAGNESIUM 1.7 MG/DL (1.5-2.4); PHOSPHORUS 3.3 MG/DL (2.3-4.5); POTASSIUM 3.3 MMOL/L (3.5-5.1); SODIUM 141 MMOL/L (135-145); TOTAL CARBON DIOXIDE 29.9 MMOL/L (24-32); TOTAL PROTEIN 5.7 G/DL (6.4-8.2); TRIGLYCERIDES 18 MG/DL (20-135); eGFR > 90 ML/MIN
[2022-03-06 04:36] LABS: HDL CHOLESTEROL > 155 MG/DL (35-60)
[2022-03-06 04:59] LABS: PLATELET ESTIMATE DECREASED
[2022-03-06 05:00] LABS: TARGET CELLS FEW
[2022-03-06 06:00] VITALS: BP 126/86
--- NOTE | 2022-03-06 06:20 | NUR ---
Problems reprioritized. Patient report given, questions answered & plan of care reviewed with Remedios RN.
--- NOTE | 2022-03-06 06:30 | NUR ---
Patient in room PCU 3018. I have received report from ANGELA Dorado and had the opportunity to ask questions and assume patient care.
[2022-03-06] MEDS: heparin, porcine 5000 units/ml vial SQ SCH (08:00)
[2022-03-06] MEDS: K and/or MAG REPLACEMENT MC SCH ×2 (08:00→20:00)
[2022-03-06] MEDS: docusate sod 100mg capsule PO SCH ×2 (08:26→20:59)
[2022-03-06] MEDS: potassium Cl 20 mEq SR tablet PO PRN ×3 (08:26→18:01)
[2022-03-06] MEDS: pantoprazole 40mg Tablet.DR PO SCH (08:26)
[2022-03-06] MEDS: thiamine 100mg/ml 2ml inj. IV SCH ×3 (08:26→20:58)
[2022-03-06] MEDS: dextrose 5%-normal saline 1,000 ML IV SCH ×2 (08:29→21:00)
--- NOTE | 2022-03-06 09:27 | NUR ---
Page Accepted Message: Room: 3018A: Helder: Pt's blood glucose is 239. They are eating. Can I turn off their D5? ANGELA Whittaker [id number] Transaction number: [id number]
[2022-03-06] MEDS: folic acid 1mg/0.2ml inj IV SCH (09:55)
[2022-03-06 11:00] VITALS: BP 127/96
[2022-03-06] MEDS: haloperidol 5mg tablet PO PRN ×2 (14:11→20:58)
[2022-03-06 15:00] VITALS: BP 113/82
[2022-03-06 18:00] VITALS: BP 130/76
--- NOTE | 2022-03-06 18:40 | NUR ---
Problems reprioritized. Patient report given, questions answered & plan of care reviewed with ANGELA Gleason.
--- NOTE | 2022-03-06 20:38 | NUR ---
PAGER ID: [phone] MESSAGE: Pt [id number] Ambrocio Pendleton platelets 88, down today from 158 on 03/04/22 should I admin the subcut heparin. Please advise
[2022-03-06] MEDS: gabapentin 400mg capsule PO SCH (20:59)
[2022-03-06 22:00] VITALS: BP 118/82
[2022-03-07] VITALS (8 sets, daily range): BP systolic 98–126; BP diastolic 48–83
--- NOTE | 2022-03-07 06:16 | NUR ---
Problems reprioritized. Patient report given, questions answered & plan of care reviewed with ANGELA Whittaker.
--- NOTE | 2022-03-07 06:30 | NUR ---
Patient in room PCU 3018. I have received report from ANGELA Gleason and had the opportunity to ask questions and assume patient care.
[2022-03-07 06:37] LABS: BASOPHILS % (AUTO) 0.6 % (0-1); EOSINOPHILS # (AUTO) 0.1 X10'3 (0-0.9); EOSINOPHILS % (AUTO) 3.5 % (0-6); HEMATOCRIT 38.6 % (42.0-52.0); HEMOGLOBIN 12.7 g/dl (14.0-17.9); LYMPHOCYTES # (AUTO) 1.5 X10'3 (1.1-4.8); LYMPHOCYTES % (AUTO) 38.8 % (21-51); MEAN CORPUSCULAR HEMOGLOBIN 31.9 PG (27.0-31.0); MEAN CORPUSCULAR HGB CONC 32.8 g/dL (33.0-36.5); MEAN CORPUSCULAR VOLUME 97.3 FL (78-98); MEAN PLATELET VOLUME 8.5 FL (7.4-10.4); MONOCYTES # (AUTO) 0.4 X10'3 (0-0.9); MONOCYTES % (AUTO) 10.1 % (2-12); NEUTROPHILS # (AUTO) 1.8 X10'3 (1.8-7.7); PLATELET COUNT 86 X10'3 (140-440); RED BLOOD COUNT 3.97 X10'6 (4.70-6.10); RED CELL DISTRIBUTION WIDTH 15.5 % (11.5-14.5); WHITE BLOOD COUNT 3.8 X10'3 (4.5-11.0)
[2022-03-07 07:10] LABS: ALANINE AMINOTRANSFERASE 27 U/L (12-78); ALBUMIN 2.7 G/DL (3.4-5.0); ALBUMIN/GLOBULIN RATIO 0.8 (1.1-1.5); ALKALINE PHOSPHATASE 93 IU/L (46-116); AMYLASE 70 U/L (25-115); ANION GAP 2 (8-16); ASPARTATE AMINO TRANSFERASE 46 U/L (10-37); BILIRUBIN,TOTAL 0.5 MG/DL (0.1-1.0); BLOOD UREA NITROGEN 7 MG/DL (7-18); CALCIUM 8.5 MG/DL (8.5-10.1); CHLORIDE 108 MMOL/L (99-107); GLUCOSE 79 MG/DL (70-104); MAGNESIUM 2.1 MG/DL (1.5-2.4); PHOSPHORUS 3.8 MG/DL (2.3-4.5); POTASSIUM 3.9 MMOL/L (3.5-5.1); SODIUM 141 MMOL/L (135-145); TOTAL CARBON DIOXIDE 30.6 MMOL/L (24-32); eGFR > 90 ML/MIN
[2022-03-07] MEDS: K and/or MAG REPLACEMENT MC SCH ×2 (08:00→18:39)
[2022-03-07] MEDS: docusate sod 100mg capsule PO SCH ×2 (08:22→21:13)
[2022-03-07] MEDS: pantoprazole 40mg Tablet.DR PO SCH (08:22)
[2022-03-07] MEDS: thiamine 100mg/ml 2ml inj. IV SCH ×3 (08:22→21:14)
[2022-03-07] MEDS: LORazepam 2 mg/ml vial IV PRN ×7 (08:22→21:14)
[2022-03-07] MEDS: folic acid 1mg/0.2ml inj IV SCH (08:23)
[2022-03-07] MEDS: dextrose 5%-normal saline 1,000 ML IV SCH (08:24)
[2022-03-07] MEDS: haloperidol 5mg tablet PO PRN ×2 (15:19→23:17)
--- NOTE | 2022-03-07 18:24 | NUR ---
Problems reprioritized. Patient report given, questions answered & plan of care reviewed with ANGELA Gleason.
--- NOTE | 2022-03-07 18:39 | NUR ---
PAGER ID: [phone] MESSAGE: Room: 2331D: Can you please renew this pt's 1799 order? ANGELA Whittaker [id number]
--- NOTE | 2022-03-07 18:50 | NUR ---
Patient in room PCU 3018. I have received report from ANGELA Whittaker and had the opportunity to ask questions and assume patient care.
[2022-03-07] MEDS: gabapentin 400mg capsule PO SCH (21:13)
[2022-03-08] VITALS (7 sets, daily range): BP systolic 104–147; BP diastolic 55–73
[2022-03-08] MEDS: LORazepam 2 mg/ml vial IV PRN (05:18)
[2022-03-08] MEDS: dextrose 5%-normal saline 1,000 ML IV SCH (05:18)
[2022-03-08] MEDS: LORazepam 1 MG tablet PO PRN ×4 (05:30→19:43)
--- NOTE | 2022-03-08 06:30 | NUR ---
Patient in room PCU 3018. I have received report from ANGELA Gleason and had the opportunity to ask questions and assume patient care.
[2022-03-08 06:58] LABS: BASOPHILS % (AUTO) 0.5 % (0-1); EOSINOPHILS # (AUTO) 0.1 X10'3 (0-0.9); EOSINOPHILS % (AUTO) 2.6 % (0-6); HEMOGLOBIN 12.9 g/dl (14.0-17.9); LYMPHOCYTES # (AUTO) 1.7 X10'3 (1.1-4.8); LYMPHOCYTES % (AUTO) 31.6 % (21-51); MEAN CORPUSCULAR HEMOGLOBIN 31.7 PG (27.0-31.0); MEAN CORPUSCULAR HGB CONC 33.1 g/dL (33.0-36.5); MEAN CORPUSCULAR VOLUME 95.9 FL (78-98); MEAN PLATELET VOLUME 8.3 FL (7.4-10.4); MONOCYTES # (AUTO) 0.6 X10'3 (0-0.9); MONOCYTES % (AUTO) 11.4 % (2-12); NEUTROPHILS # (AUTO) 2.9 X10'3 (1.8-7.7); NEUTROPHILS % (AUTO) 53.9 % (42-75); PLATELET COUNT 91 X10'3 (140-440); RED BLOOD COUNT 4.07 X10'6 (4.70-6.10); RED CELL DISTRIBUTION WIDTH 15.5 % (11.5-14.5); WHITE BLOOD COUNT 5.3 X10'3 (4.5-11.0)
--- NOTE | 2022-03-08 07:00 | NUR ---
Problems reprioritized. Patient report given, questions answered & plan of care reviewed with ANGELA Whittaker.
[2022-03-08 07:12] LABS: ALANINE AMINOTRANSFERASE 29 U/L (12-78); ALBUMIN 2.8 G/DL (3.4-5.0); ALBUMIN/GLOBULIN RATIO 0.8 (1.1-1.5); ALKALINE PHOSPHATASE 99 IU/L (46-116); AMYLASE 78 U/L (25-115); ANION GAP 3 (8-16); ASPARTATE AMINO TRANSFERASE 43 U/L (10-37); BILIRUBIN,TOTAL 0.4 MG/DL (0.1-1.0); BLOOD UREA NITROGEN 10 MG/DL (7-18); BUN/CREATININE RATIO 12.5 (5.4-32.0); CALCIUM 8.4 MG/DL (8.5-10.1); CHLORIDE 105 MMOL/L (99-107); GLUCOSE 88 MG/DL (70-104); MAGNESIUM 1.8 MG/DL (1.5-2.4); SODIUM 139 MMOL/L (135-145); TOTAL CARBON DIOXIDE 30.8 MMOL/L (24-32); TOTAL PROTEIN 6.2 G/DL (6.4-8.2); eGFR > 90 ML/MIN
[2022-03-08] MEDS: pantoprazole 40mg Tablet.DR PO SCH (07:30)
[2022-03-08] MEDS: thiamine 100mg/ml 2ml inj. IV SCH (08:00)
[2022-03-08] MEDS: folic acid 1mg/0.2ml inj IV SCH (08:00)
[2022-03-08] MEDS: K and/or MAG REPLACEMENT MC SCH ×2 (08:00→20:00)
[2022-03-08] MEDS: docusate sod 100mg capsule PO SCH ×2 (08:53→19:43)
[2022-03-08] MEDS: haloperidol 5mg tablet PO PRN (14:05)
--- NOTE | 2022-03-08 18:35 | NUR ---
Problems reprioritized. Patient report given, questions answered & plan of care reviewed with ANGELA Goetz.
--- NOTE | 2022-03-08 18:36 | NUR ---
Orientee documentation: I have reviewed and agree with all interventions, assessments performed and documented by ALEJANDRA Adhikari.
[2022-03-08] MEDS: gabapentin 400mg capsule PO SCH (19:44)
[2022-03-08] MEDS: chlordiazePOXIDE 25mg capsule PO PRN (19:45)
--- NOTE | 2022-03-08 22:08 | NUR ---
[id number] Ambrocio Pendleton Has been accepted to behavioral health [facility]. I just need discharge orders Thanks Bishnu [phone]
--- NOTE | 2022-03-08 22:16 | NUR ---
Hospitalist asked if I can let the day nurse know patient has been accepted to Behavioral Health, so she can inform the day hospitalist. Per hospitalist discharges are not written at night.
[2022-03-09 02:00] VITALS: BP 162/76
[2022-03-09] MEDS: dextrose 5%-normal saline 1,000 ML IV SCH (02:03)
[2022-03-09 06:00] VITALS: BP 120/81
[2022-03-09 06:39] LABS: BASOPHILS % (AUTO) 0.6 % (0-1); EOSINOPHILS # (AUTO) 0.2 X10'3 (0-0.9); EOSINOPHILS % (AUTO) 3.4 % (0-6); HEMATOCRIT 38.8 % (42.0-52.0); HEMOGLOBIN 12.9 g/dl (14.0-17.9); LYMPHOCYTES # (AUTO) 1.7 X10'3 (1.1-4.8); LYMPHOCYTES % (AUTO) 32.1 % (21-51); MEAN CORPUSCULAR HEMOGLOBIN 31.9 PG (27.0-31.0); MEAN CORPUSCULAR HGB CONC 33.1 g/dL (33.0-36.5); MEAN CORPUSCULAR VOLUME 96.5 FL (78-98); MEAN PLATELET VOLUME 8.1 FL (7.4-10.4); MONOCYTES # (AUTO) 0.7 X10'3 (0-0.9); MONOCYTES % (AUTO) 13.2 % (2-12); NEUTROPHILS # (AUTO) 2.6 X10'3 (1.8-7.7); NEUTROPHILS % (AUTO) 50.7 % (42-75); PLATELET COUNT 114 X10'3 (140-440); RED BLOOD COUNT 4.03 X10'6 (4.70-6.10); RED CELL DISTRIBUTION WIDTH 15.6 % (11.5-14.5); WHITE BLOOD COUNT 5.2 X10'3 (4.5-11.0)
--- NOTE | 2022-03-09 06:43 | NUR ---
Problems reprioritized. Patient report given, questions answered & plan of care reviewed with ANGELA Pitt.
[2022-03-09 07:02] LABS: ALANINE AMINOTRANSFERASE 37 U/L (12-78); ALBUMIN 2.9 G/DL (3.4-5.0); ALBUMIN/GLOBULIN RATIO 0.9 (1.1-1.5); ALKALINE PHOSPHATASE 96 IU/L (46-116); ANION GAP 3 (8-16); ASPARTATE AMINO TRANSFERASE 55 U/L (10-37); BILIRUBIN,TOTAL 0.3 MG/DL (0.1-1.0); BLOOD UREA NITROGEN 10 MG/DL (7-18); BUN/CREATININE RATIO 13.3 (5.4-32.0); CALCIUM 8.6 MG/DL (8.5-10.1); CHLORIDE 106 MMOL/L (99-107); CREATININE 0.75 MG/DL (0.60-1.10); GLUCOSE 92 MG/DL (70-104); PHOSPHORUS 4.1 MG/DL (2.3-4.5); SODIUM 138 MMOL/L (135-145); TOTAL CARBON DIOXIDE 29.4 MMOL/L (24-32); TOTAL PROTEIN 6.3 G/DL (6.4-8.2); eGFR > 90 ML/MIN
[2022-03-09] MEDS: pantoprazole 40mg Tablet.DR PO SCH (07:51)
[2022-03-09] MEDS: docusate sod 100mg capsule PO SCH (07:51)
[2022-03-09] MEDS: LORazepam 1 MG tablet PO PRN (07:51)
[2022-03-09] MEDS: K and/or MAG REPLACEMENT MC SCH (08:00)
--- NOTE | 2022-03-09 10:36 | NUR ---
Called report to Ajay, nurse in [facility]. All questions, comments, concerned answered at this time. Advised we will d/c from PCU and escort patient to [facility].
--- NOTE | 2022-03-09 10:50 | NUR ---
Orientee documentation: I have reviewed and agree with all interventions, assessments performed and documented by ALEJANDRA Rao II.
--- NOTE | 2022-03-09 11:10 | NUR ---
Escorted pt to behavioral health - pt received by their staff. Copy of [id number] handed off to personnel.
[2022-03-09] MEDS ORDERED: LORazepam 1 MG tablet PO PRN (11:40)
[2022-03-09] MEDS ORDERED: LORazepam 2 mg/ml vial IV PRN (11:40)
[2022-03-09] MEDS ORDERED: NO HOME MEDS (16:07)
[2022-03-10] MEDS ORDERED: folic acid 1mg tablet PO SCH (08:00)
[2022-03-10] MEDS ORDERED: thiamine 100mg tablet PO SCH (08:00)
== END 2022-03-09 11:00 | disposition home or self-care (01) | DRG 881 ==
LOC: ER 18:10 → ED HOLD 03-05 11:41 → PCU 3S 03-05 20:46
PROVIDERS: ADMIT Family Medicine; ATTEND Family Medicine
DX: F32.9 Major depressive disorder, single episode, unspecified (principal); R45.851 Suicidal ideations; F10.239 Alcohol dependence with withdrawal, unspecified; F12.90 Cannabis use, unspecified, uncomplicated; Z20.822 Contact with and (suspected) exposure to COVID-19; F17.220 Nicotine dependence, chewing tobacco, uncomplicated; F10.229 Alcohol dependence with intoxication, unspecified; F41.9 Anxiety disorder, unspecified; Z79.899 Other long term (current) drug therapy; Z80.8 Family history of malignant neoplasm of other organs or systems; Z81.8 Family history of other mental and behavioral disorders; Z91.14 Patient's other noncompliance with medication regimen; Z98.84 Bariatric surgery status; Z71.51 Drug abuse counseling and surveillance of drug abuser; Z71.6 Tobacco abuse counseling
CPT/HCPCS: 36415; 71045; 80053; 80061; 80305; 80320; 81001; 82150; 82550; 82948; 83036; 83690; 83735; 84100; 84443; 85008; 85025; 87081; 87635; 93005; 97162; 97530; 99285; C9803; G0378; J1644; J2060; J2405; J3411; J3490; J7030; J7042

== ENCOUNTER 2022-03-08 20:45 | Inpatient (IN) | payer BC ==
[~2022-03-08] VITALS: Ht 185.4 cm; Wt 122.8 kg
[~2022-03-08 20:45] MED LIST changes: -LITH300T34 PO; -MULT-1085 PO; -TRAZ-256 PO; -VENL150T3 PO; -folic acid tablet PO
--- NOTE | 2022-03-09 09:09 | NUR ---
Pt. attended group today. We talked about Major Depressive Disorder, we went over the criteria from the DSM5. We then talked over coping skills. We did a Mindfulness technique at the end of the group. Pt. spoke minimally in the group. He sat quietly, his demeanor was calm and pleasant. He was alert and oriented X 4. His thought content and thought process were WNL. Anuja Quispe LCSW
[2022-03-09 11:00] VITALS: BP 113/82
--- NOTE | 2022-03-09 11:00 | NUR ---
ADMIT NOTE: 5150 states, You attempted suicide by overdosing on alcohol, attempting to hang yourself, and obtained a gun from a friend. Pt. transferred from PCU by wheelchair. RN received report from Sweetie. Pt. cooperative upon assessment, skin assessment, physical assessment and interview done. Pt. has minor tremor bilaterally in hands, c/o anxiety and agitation, headache, and some mild sweating. Pt. scored 7 on CIWA. Pt. started on Ativan 1mg QID and received with good effect. Pt. states, I tried to drink myself to . Pt. reports he had been sober, but that 3 weeks ago he started drinking 2.5 liters of vodka and 8 large IPA beers daily. Pt. reports he wanted to end his life because he feels like a failure after his marriage ended and he is tired of feeling sorry for himself. Pt. denies current SI/HI, A/V hallucinations. However, pt. reports that he hears voices that make him laugh as well as people sitting next to him when theres no one there. Pt. reports he wants to quit smoking, pt. given smoking cessation information. Pt. c/o burning on urination for the last 4 months. Pt.s U/A was negative. Pt. was previously admitted to [facility] on June 15 2021 for a suicide attempt by hanging. Pt. is tearful during interview. Pt. reports frustration with his medication. Pt. states he wants to get back on Effexor 225mg daily and Wellbutrin 100mg TID. Pt. is A&Ox4.
[2022-03-09] MEDS ORDERED: mag hydrox/Alum hydrox/simeth 30ml oral suspension PO PRN (11:15)
[2022-03-09] MEDS ORDERED: magnesium hydroxide 30ml (MOM) UD suspension PO PRN (11:15)
[2022-03-09] MEDS ORDERED: loperamide 2mg capsule PO PRN (11:15)
[2022-03-09] MEDS ORDERED: acetaminophen 325mg tablet PO PRN ×2 (11:15)
[2022-03-09] MEDS: LORazepam 1 MG tablet PO SCH ×3 (12:45→21:03)
[2022-03-09] MEDS ORDERED: nicotine 21mg patch - 24 hr TD ONE (14:10)
[2022-03-09] MEDS: NICOTINE POLACRILEX 2 MG LOZENGE BC PRN ×2 (15:14→17:29)
[2022-03-09] MEDS ORDERED: NO HOME MEDS (16:07)
[2022-03-09] MEDS ORDERED: traZODone 50mg tablet PO PRN (16:55)
[2022-03-09] MEDS ORDERED: thiamine 100mg tablet PO SCH (17:30)
--- NOTE | 2022-03-09 18:34 | NUR ---
Pt. on CIWA TID for first 24 hrs. If scoring over 8 call provider. Ativan 1mg QID scheduled for ETOH withdrawal.
[2022-03-09 19:23] VITALS: BP 105/60
[2022-03-09] MEDS ORDERED: traZODone 50mg tablet PO ONE (23:58)
--- NOTE | 2022-03-10 00:30 | NUR ---
Nursing Progress Note: Legal hold: 5150 Client on involuntary status for DTS Report received from nurse with use of SBAR: Palmira RN Why are they here: 5150 states, You attempted suicide by overdosing on alcohol, attempting to hang yourself, and obtained a gun from a friend. Assessment What has happened this shift: Pt was in bed at change of shift. Pt spent time listening to music in his room. CIWA score at HS was 6. He reports tremors in his right hand, mild anxiety and some sweating. Pt was given Ativan 1mg. Pt took prn trazodone at HS. pt remained relaxing in his room before going to sleep. Pts sleep is interrupted and he requested a repeat dose of trazodone. S/I, H/I: Denies A/VH: Pt states he is not sure if hes having VH but feels like he sees someone sitting next to him sometimes Sleep: see sleep hours, pt having difficulty falling asleep ADL's: Independent, Group attendance: N/A Were meds taken: Yes Any med S/E:none Mental Status Exam Appearance:adequately groomed and dressed Eye contact: Good Behavior: Cooperative, anxious, Speech: WNL Mood: depressed Affect: Constricted Thought process: Linear Thought Content: meeting his needs Cognition: A&O X4 Insight:fair Judgment: Poor Interventions PRN's used: trazodone Therapeutic interventions: Introduced self and established rapport, maintained a safe and supportive environment, ensured contract for safety, provided clear and simple instructions, completed CIWA Assessment, maintained fall precautions and encouraged use of FWW, and maintained Q 15min safety checks. Restraints/seclusion/emergency medication: N/A Justification of Continued Inpatient Treatment: Pt. requires interruption of current crisis, medication adjustments, and a safe and supportive environment.
[2022-03-10 07:15] LABS: BASOPHILS % (AUTO) 0.7 % (0-1); EOSINOPHILS # (AUTO) 0.1 X10'3 (0-0.9); HEMATOCRIT 41.8 % (42.0-52.0); HEMOGLOBIN 13.9 g/dl (14.0-17.9); LYMPHOCYTES # (AUTO) 1.7 X10'3 (1.1-4.8); LYMPHOCYTES % (AUTO) 34.9 % (21-51); MEAN CORPUSCULAR HEMOGLOBIN 31.8 PG (27.0-31.0); MEAN CORPUSCULAR HGB CONC 33.3 g/dL (33.0-36.5); MEAN CORPUSCULAR VOLUME 95.5 FL (78-98); MEAN PLATELET VOLUME 7.6 FL (7.4-10.4); MONOCYTES # (AUTO) 0.6 X10'3 (0-0.9); NEUTROPHILS # (AUTO) 2.3 X10'3 (1.8-7.7); NEUTROPHILS % (AUTO) 48.4 % (42-75); PLATELET COUNT 150 X10'3 (140-440); RED BLOOD COUNT 4.38 X10'6 (4.70-6.10); RED CELL DISTRIBUTION WIDTH 15.7 % (11.5-14.5); WHITE BLOOD COUNT 4.9 X10'3 (4.5-11.0)
--- NOTE | 2022-03-10 07:35 | NUR ---
Malnutrition consult: Pt has apparently lost 50lb per RN. Previous scaled wt in 06/2021 showed 139kg and current scaled wt shows 117kg, representing a moderate amount of wt loss in 9 months; this could be related to pt's hx of EtOH abuse. Pt appears WD/WN per ED note, has consumed 100% of first 2 meals. Noted w/ normal muscle strength and bilateral ankle 1+ trace edema. At this time, pt does not meet minimum criteria for malnutrition Addendum: 03/10/22 at [address] Amended: Links added.
[2022-03-10] MEDS: LORazepam 1 MG tablet PO SCH ×4 (07:37→21:37)
[2022-03-10] MEDS: pantoprazole 40mg Tablet.DR PO SCH (07:37)
[2022-03-10] MEDS: thiamine 100mg tablet PO SCH (07:37)
[2022-03-10] MEDS: folic acid 1mg tablet PO SCH (07:37)
[2022-03-10] MEDS: nicotine 21mg patch - 24 hr TD SCH (07:43)
[2022-03-10 07:46] LABS: % IRON SATURATION 15 % (11-46); IRON 41 UG/DL (53-167); TOTAL IRON BINDING CAPACITY 279 UG/DL (259-388)
[2022-03-10 08:00] VITALS: BP 119/74
--- NOTE | 2022-03-10 08:02 | NUR ---
PSYCHOSOCIAL ASSESSMENT: Met with Pt. today. Pt. is a 42 year old male who came into the ER after he attempted suicide by overdosing on alcohol, attempting to hang himself and obtained a gun from a friend. Pt. reports he had been sober for awhile, but that 3 weeks ago he started drinking 2.5 liters of vodka and 8 large IPA beers daily. Pt. reports he wanted to end his life because he feels like a failure after his marriage ended and he is tired of feeling sorry for himself. His daughter was visiting for Spring break and once she left he became despondent and triggered. Pt reported that he and his broke up last summer. He moved up here with his parents who had decided to move to [place] from [place]. Pt. moved with them as this was who he was living with. His parents are very supportive as well as his two brothers who also live here. Pt. also reported that he lost his job last summer as well. He had a DUI previously and then when his called the Police on him for being drunk and disorderly his license got revoked for 3 years. He is currently on the second year of probation. 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 Pt. denies current SI/HI, A/V hallucinations. Pt. was previously admitted to [facility] on June 15 2021 for a suicide attempt by hanging. Pt. is tearful during interview. Pt. reported his parents are supportive but do not want him drinking in their home. He is currently has outpatient services with Dr. Barbosa, he see David there. He is interested in applying for [facility]. He has enrolled himself in outpt. Rehab many times and does not seem interested in this option though he admits to being an alcoholic. He also admits to not being good about taking his meds. He stated, I start to feel better and then I will stop taking them. Anuja Quispe LCSW
[2022-03-10 08:03] LABS: ALANINE AMINOTRANSFERASE 46 U/L (12-78); ALBUMIN 3.2 G/DL (3.4-5.0); ALBUMIN/GLOBULIN RATIO 0.8 (1.1-1.5); ALKALINE PHOSPHATASE 106 IU/L (46-116); ANION GAP 7 (8-16); ASPARTATE AMINO TRANSFERASE 61 U/L (10-37); BILIRUBIN,TOTAL 0.3 MG/DL (0.1-1.0); BLOOD UREA NITROGEN 13 MG/DL (7-18); BUN/CREATININE RATIO 15.9 (5.4-32.0); CHLORIDE 106 MMOL/L (99-107); CHOL/HDL RATIO 1.6 (0.00-4.99); CHOLESTEROL 222 MG/DL (0-200); CREATININE 0.82 MG/DL (0.60-1.10); FERRITIN 100 NG/ML (26-388); GLUCOSE 88 MG/DL (70-104); HDL CHOLESTEROL 136 MG/DL (35-60); LDL CHOLESTEROL 62 MG/DL (50-100); POTASSIUM 4.6 MMOL/L (3.5-5.1); SODIUM 143 MMOL/L (135-145); TOTAL CARBON DIOXIDE 29.8 MMOL/L (24-32); TOTAL PROTEIN 7.1 G/DL (6.4-8.2); TRIGLYCERIDES 37 MG/DL (20-135); eGFR > 90 ML/MIN
[2022-03-10] MEDS: NICOTINE POLACRILEX 2 MG LOZENGE BC PRN ×2 (10:10→16:25)
--- NOTE | 2022-03-10 14:08 | NUR ---
Nursing Progress Note Legal hold: 5150 Client on involuntary status for DTS Report received from RN with use of SBAR Why are they here: 5150 states, You attempted suicide by overdosing on alcohol, attempting to hang yourself, and obtained a gun from a friend. Assessment What has happened this shift: Received Pt in bed resting w/o distress at the beginning of the shift. Pt was cooperative with vitals and CIWA and AM assessments. Pt took AM meds w/o issue and ate meals well. Pt attended AM group with good involvement. Pt cooperative and pleasant throughout day with a moment of irritability with another Pt in the AM. Socialized in community room with another Pt in afternoon. Pt scored a 6 and 7 on CIWAs today; scheduled Ativan 1mg were given. Pt spent time in room with headphones looking out the window and walked halls at times. Currently denies SI. Describes seeing someone out of the corner of his eye, then turning and no one is there. S/I, H/I: Denies A/VH: Denies Sleep: None this shift ADL's: Independent Group attendance: Yes, with good participation Were meds taken: Yes Any med S/E: None Mental Status Exam Appearance: Casual, groomed Eye contact: Good Behavior: Cooperative, anxious at times Speech: Coherent, clear Mood: depressed Affect: Constricted Thought process: Linear Thought Content: Meeting his needs Cognition: A&O X4 Insight: Fair Judgment: Poor Interventions PRN's used: Nic. Simon Therapeutic interventions: Introduced self and established rapport, maintained a safe and supportive environment, ensured contract for safety, provided clear and simple instructions, completed CIWA Assessment, maintained fall precautions and encouraged use of FWW, and maintained Q 15min safety checks. Restraints/seclusion/emergency medication: N/A Justification of Continued Inpatient Treatment: Pt. requires interruption of current crisis, medication adjustments, and a safe and supportive environment.
[2022-03-10 19:00] VITALS: BP 107/68
[2022-03-10] MEDS ORDERED: traZODone 50mg tablet PO SCH (20:00)
--- NOTE | 2022-03-11 03:31 | NUR ---
Nursing Progress Note Legal hold: 5150 Client on involuntary status for DTS Report received from ANGELA Anderson with use of SBAR Why are they here: 5150 states, You attempted suicide by overdosing on alcohol, attempting to hang yourself, and obtained a gun from a friend. What has happened this shift: Patient observed watching TV in the community room at the beginning of shift. Pleasant and cooperative with care; compliant with medication. Repeat Trazodone provided upon patient request. He remains on CIWA TID; scored two this shift. Scheduled Ativan provided but PRN not required. Mild anxiety and agitation observed; he was briefly upset during med pass. He believed Dr. Meyer was increasing Trazodone to 200mg; typewriter operator automatic explained he had a repeat that would total to 200mg if needed. Patient reported intermittent thoughts of SI; denies HI, A/VH. No apparent delusions reported. Patient participated in HS snack, social with staff and peers, briefly walked the unit prior to bed; observed sleeping and does not appear to be having difficulty. Justification of Continued Inpatient Treatment: Pt. requires interruption of current crisis, medication adjustments, and a safe and supportive environment.
[2022-03-11] MEDS ORDERED: venlafaxine XR 37.5mg cap (Q24H) PO ONE (07:05)
[2022-03-11] MEDS: pantoprazole 40mg Tablet.DR PO SCH (07:06)
[2022-03-11] MEDS: thiamine 100mg tablet PO SCH (07:06)
[2022-03-11] MEDS: LORazepam 1 MG tablet PO SCH ×4 (07:06→21:36)
[2022-03-11] MEDS: folic acid 1mg tablet PO SCH (07:06)
[2022-03-11] MEDS: nicotine 21mg patch - 24 hr TD SCH (07:08)
[2022-03-11] MEDS: NICOTINE POLACRILEX 2 MG LOZENGE BC PRN ×5 (07:27→19:11)
[2022-03-11] MEDS ORDERED: buPROPion 75mg tablet PO SCH (07:30)
[2022-03-11 08:00] VITALS: BP 112/68
--- NOTE | 2022-03-11 10:17 | NUR ---
CM - Spoke to Kary regarding [employer] ( Pt. was interested in applying for [employer]) - Kary cannot help him apply because he has existing insurance. She gave phone numbers for [employer] and [employer] so he can follow up with them if he is interested in applying. Anuja Quispe, PAINT MIXER HAND
[2022-03-11] MEDS ORDERED: polyethylene glycol 3350 17gm powd pack PO ONE (13:05)
[2022-03-11 14:00] VITALS: BP 109/79
--- NOTE | 2022-03-11 17:55 | NUR ---
Nursing Progress Note: [facility] Legal hold: 5150 Client on involuntary status for DTS Report received from Zeynep Luque RN with use of SBAR Why are they here: 5150 states, You attempted suicide by overdosing on alcohol, attempting to hang yourself, and obtained a gun from a friend. Assessment What has happened this shift: Patient received sleeping in his room at change of shift. He was noted to be animated and excited upon recognizing this documentation writer from his last visit. Patient noted to be pleasant, social, and cooperative with care. He joined in the group room for breakfast, noted socializing appropriately with another peer. He was receptive to scheduled medication. Patient continues on CIWA assessment protocol and scheduled Ativan 1mg QID. When asked questions of SI, patient endorsed to this documentation writer, Well you know I have to say no to that. Patient noted endorsing feelings of depression and fear of the unknown. Patient endorsed previously seeing people in his peripheral view that arent actually there. However, denies AH or VH on this shift. Patient participated in group therapy on this shift, noted engaging and participating appropriately. Later in the shift, patient endorsed that he is more hopeful after talking to family. Patient also reported that he wants to feel better and get stabilized on his medication. He was observed reading magazines, watching television, and socializing with another peer throughout the shift. Pt scored a 6 and 5 on CIWAs today; scheduled Ativan 1mg were given. Patient noted to be animated, social, and pleasant throughout the day. He joined for all meal and snack times in the group room with peers. S/I, H/I: Denies A/VH: Denies. Does not appear to be responding to IS. Sleep: Pt slept 6.5 hours last night per NOC shift. Napped for approximately 2 hours on this shift. ADL's: Independent Group attendance: Yes, with good participation Were meds taken: Yes Any med S/E: None observed or reported Mental Status Exam Appearance: Casual in personal attire. Wearing eye glasses. Clean, neat. Eye contact: Good Behavior: Cooperative, pleasant, social Speech: Coherent, clear, WNL Mood: Appears depressed Affect: Full range Thought process: Linear Thought Content: Fear of the unknown. More hopeful after talking to family. Cognition: A&O X4 Insight: Fair Judgment: Poor Interventions PRN's used: Nicotine lozenges Therapeutic interventions: Maintained a safe and supportive environment, ensured contract for safety, provided clear and simple instructions, completed CIWA assessment, and maintained Q 15min safety checks. Restraints/seclusion/emergency medication: N/A Justification of Continued Inpatient Treatment: Pt. requires interruption of current crisis, medication adjustments, and a safe and supportive environment.
[2022-03-11 19:28] VITALS: BP 114/65
[2022-03-11] MEDS: traZODone 50mg tablet PO SCH (21:36)
--- NOTE | 2022-03-12 04:07 | NUR ---
Nursing Progress Note Legal hold: 5150 Client on involuntary status for DTS Report received from ANGELA Anderson with use of SBAR Why are they here: 5150 states, You attempted suicide by overdosing on alcohol, attempting to hang yourself, and obtained a gun from a friend. What has happened this shift: Patient social with peers and playing card games in the community room at the beginning of shift. Pleasant and cooperative with care; compliant with medication. PRN Nicotine lozenges provided and patch removed. He remains on CIWA Q8H and scored 1 this shift. Patient denies SI, HI, A/VH; no apparent delusions expressed. Patient participated in HS snack and continued to socialize prior to bed. Justification of Continued Inpatient Treatment: Pt. requires interruption of current crisis, medication adjustments, and a safe and supportive environment.
[2022-03-12] MEDS: NICOTINE POLACRILEX 2 MG LOZENGE BC PRN ×6 (07:10→20:51)
[2022-03-12] MEDS: folic acid 1mg tablet PO SCH (07:59)
[2022-03-12] MEDS: venlafaxine XR 75mg capsule (Q24H) PO SCH (07:59)
[2022-03-12] MEDS: nicotine 21mg patch - 24 hr TD SCH (07:59)
[2022-03-12] MEDS: thiamine 100mg tablet PO SCH (07:59)
[2022-03-12] MEDS: pantoprazole 40mg Tablet.DR PO SCH (07:59)
[2022-03-12] MEDS: LORazepam 1 MG tablet PO SCH ×4 (08:00→21:43)
[2022-03-12 08:24] VITALS: BP 98/77
[2022-03-12 14:00] VITALS: BP 110/55
[2022-03-12] MEDS ORDERED: polyethylene glycol 3350 17gm powd pack PO ONE (14:55)
--- NOTE | 2022-03-12 17:23 | NUR ---
Nursing Progress Note: [facility] Legal hold: Voluntary Client on involuntary status for DTS Report received from Zeynep Luque RN with use of SBAR Why are they here: 5150 states, You attempted suicide by overdosing on alcohol, attempting to hang yourself, and obtained a gun from a friend. Assessment What has happened this shift: Patient received walking around the unit at shift change with no s/s of distress. He continues on CIWA assessment protocol and scheduled Ativan 1mg QID. He was receptive to scheduled medication this morning. Patient joined for breakfast in the group room with peers. He continues to present as social, pleasant, and cooperative with care. Patient continues to endorse feelings of depression, but is hopeful to get better soon. He denies SI, HI, AH or VH on this shift. Does not appear to be responding to internal stimuli. Patient was observed reading magazines, watching television, and socializing with another peer throughout the shift. He was observed lying down in his room later in the shift while listening to music through headphones. Patient endorsed excitement over a [employer] song that reminded him of his mother. Patient endorsed that he was going to call his mom to tell her about the song with a large grin on his face. He scored a 5 and 4 on CIWAs today; scheduled Ativan 1mg were given. He joined for all meal and snack times in the group room with peers. S/I, H/I: Denies A/VH: Denies. Does not appear to be responding to IS. Sleep: Pt slept 6.75 hours last night per NOC shift. Napped for approximately 2 hours on this shift. ADL's: Independent Group attendance: No group provided Were meds taken: Yes Any med S/E: None observed or reported Mental Status Exam Appearance: Casual in personal attire. Wearing eye glasses. Clean, neat. Eye contact: Good Behavior: Cooperative, pleasant, social Speech: Coherent, clear, WNL Mood: Appears depressed Affect: Full range Thought process: Linear Thought Content: Patient feeling depressed but hopeful to get better soon. Cognition: A&O X4 Insight: Fair Judgment: Poor Interventions PRN's used: Nicotine lozenges Therapeutic interventions: Maintained a safe and supportive environment, ensured contract for safety, provided clear and simple instructions, completed CIWA assessment, and maintained Q 15min safety checks. Restraints/seclusion/emergency medication: N/A Justification of Continued Inpatient Treatment: Pt. requires interruption of current crisis, medication adjustments, and a safe and supportive environment.
[2022-03-12 19:16] VITALS: BP 117/63
[2022-03-12] MEDS ORDERED: polyethylene glycol 3350 17gm powd pack PO SCH (21:00)
[2022-03-12] MEDS: traZODone 50mg tablet PO SCH (21:43)
--- NOTE | 2022-03-13 03:46 | NUR ---
Nursing Progress Note Legal hold: VOL Client on voluntary status Report received from ANGELA Guzman with use of SBAR Why are they here: 5150 states, You attempted suicide by overdosing on alcohol, attempting to hang yourself, and obtained a gun from a friend. What has happened this shift: Patient social with peers and watching TV in the community room at the beginning of shift. Pleasant and cooperative with care; compliant with medication. PRN Nicotine lozenges provided and patch removed. Patient remains on CIWA Q8h and scored a 1 this shift. He denies SI, HI, A/VH; no apparent delusions expressed. Patient participated in HS snack and continued to watch TV with peers prior to bed; observed sleeping and does not appear to be having difficulty. Justification of Continued Inpatient Treatment: Pt. requires interruption of current crisis, medication adjustments, and a safe and supportive environment.
[2022-03-13 08:00] VITALS: BP 114/74
[2022-03-13] MEDS: venlafaxine XR 75mg capsule (Q24H) PO SCH (08:22)
[2022-03-13] MEDS: folic acid 1mg tablet PO SCH (08:22)
[2022-03-13] MEDS: thiamine 100mg tablet PO SCH (08:22)
[2022-03-13] MEDS: pantoprazole 40mg Tablet.DR PO SCH (08:22)
[2022-03-13] MEDS: LORazepam 1 MG tablet PO SCH ×4 (08:23→21:54)
[2022-03-13] MEDS: NICOTINE POLACRILEX 2 MG LOZENGE BC PRN ×4 (08:23→19:14)
[2022-03-13] MEDS: nicotine 21mg patch - 24 hr TD SCH (08:23)
--- NOTE | 2022-03-13 11:00 | NUR ---
WA assessment protocol discontinued per Dr. Meyer d/t patient no longer exhibiting alcohol withdrawal signs/symptoms.
--- NOTE | 2022-03-13 17:52 | NUR ---
Nursing Progress Note: [facility] Legal hold: Voluntary Client on involuntary status for DTS Report received from Zeynep Ahumada RN with use of SBAR Why are they here: 5150 states, You attempted suicide by overdosing on alcohol, attempting to hang yourself, and obtained a gun from a friend. Assessment What has happened this shift: Patient received sleeping in his room at change of shift. He awoke and was noted walking around the unit, talking to another peer. Patient scored a zero on his CIWA assessment this morning. He continues on scheduled Ativan 1mg QID. CIWA assessment protocol discontinued per Dr. Meyer d/t patient no longer exhibiting alcohol withdrawal signs/symptoms. He continues to present as social, pleasant, and cooperative with care. He participated in the group room with peers for breakfast. Patient denies SI, HI, AH or VH on this shift. Does not appear to be responding to internal stimuli. He continues to endorse hope and motivation to feel better soon. Patient was observed playing a card game with peers later in the morning. He was observed coloring a picture and watching television with peers throughout the day. He is pleasant and social with other peers on the unit throughout the shift. Patient joined for all meal and snack times in the group room with peers. S/I, H/I: Denies A/VH: Denies. Does not appear to be responding to IS. Sleep: Pt slept 6 hours last night per NOC shift. No naps noted on this shift. ADL's: Independent Group attendance: No group provided Were meds taken: Yes Any med S/E: None observed or reported Mental Status Exam Appearance: Casual in personal attire. Wearing eye glasses. Clean, neat. Eye contact: Good Behavior: Cooperative, pleasant, social Speech: Coherent, clear, WNL Mood: Hopeful, motivated Affect: Full range Thought process: Linear Thought Content: Meeting needs. Wants to feel better soon. Cognition: A&O X4 Insight: Fair Judgment: Poor Interventions PRN's used: Nicotine lozenges Therapeutic interventions: Maintained a safe and supportive environment, ensured contract for safety, provided clear and simple instructions, completed CIWA assessment, and maintained Q 15min safety checks. Restraints/seclusion/emergency medication: N/A Justification of Continued Inpatient Treatment: Pt. requires interruption of current crisis, medication adjustments, and a safe and supportive environment.
[2022-03-13 19:49] VITALS: BP 127/72
[2022-03-13] MEDS: traZODone 50mg tablet PO SCH (21:54)
--- NOTE | 2022-03-14 02:57 | NUR ---
Nursing Progress Note Legal hold: VOL Client on voluntary status Report received from ANGELA Mckeon with use of SBAR Why are they here: 5150 states, You attempted suicide by overdosing on alcohol, attempting to hang yourself, and obtained a gun from a friend. What has happened this shift: Patient watching TV with peers at the beginning of shift. Pleasant and cooperative with care; compliant with medication. PRN Nicotine lozenges provided and patch removed. Patient denies SI, HI, A/VH; no apparent delusions expressed. Patient expressing gratitude for receiving sandals and coloring material, received phone call (appeared to go well), and participated in HS snack prior to bed; observed sleeping and does not appear to be having difficulty. Justification of Continued Inpatient Treatment: Pt. requires interruption of current crisis, medication adjustments, and a safe and supportive environment.
[2022-03-14] MEDS: thiamine 100mg tablet PO SCH (07:30)
[2022-03-14] MEDS: folic acid 1mg tablet PO SCH (07:30)
[2022-03-14] MEDS: pantoprazole 40mg Tablet.DR PO SCH (07:30)
[2022-03-14] MEDS: nicotine 21mg patch - 24 hr TD SCH (07:31)
[2022-03-14] MEDS: NICOTINE POLACRILEX 2 MG LOZENGE BC PRN ×5 (07:32→19:04)
[2022-03-14 08:00] VITALS: BP 114/75
[2022-03-14] MEDS: venlafaxine XR 75mg capsule (Q24H) PO SCH (08:10)
[2022-03-14] MEDS: LORazepam 1 MG tablet PO SCH ×3 (08:18→21:50)
--- NOTE | 2022-03-14 08:35 | NUR ---
Pt. attended group today. Today's group was about the different communications styles i.e passive, aggressive and assertive. We discussed what the characteristics of each style was. We then discussed where they saw themselves at now and where they would like to be with their communication style. Pt. engaged well in the group. He shared his thoughts about his own communication style freely reporting that he is a passive communicator. He also reported that he tends to be codependent and is working on that as well. He was alert and oriented X 4. His thought content and thought process were WNL. His mood was upbeat today with a full range of affect. His demeanor is calm, compliant and pleasant to work with. Anuja Quispe LCSW
--- NOTE | 2022-03-14 17:54 | NUR ---
Nursing Progress Note: [facility] Legal hold: Voluntary Client on involuntary status for DTS Report received from ANGELA Thacker with use of SBAR Why are they here: 5150 states, You attempted suicide by overdosing on alcohol, attempting to hang yourself, and obtained a gun from a friend. Pt. states, I tried to drink myself to . Pt. reports he had been sober, but that 3 weeks ago he started drinking 2.5 liters of vodka and 8 large IPA beers daily. Pt. reports he wanted to end his life because he feels like a failure after his marriage ended and he is tired of feeling sorry for himself. Pt. denies current SI/HI, A/V hallucinations. However, pt. reports that had been experiencing voices that make him laugh as well as people sitting next to him when theres no one there. Assessment What has happened this shift: RN received pt. asleep in bed at start of shift. Pt. awoke for breakfast and took all medications. During 1:1 pt. reports continued depression and anxiety r/t feels of self-pity as well and fear about his discharge plan. Pt. reports that he has been to multiple rehab programs, but feels that his mental health needs to be address first and foremost. Pt. states, I drink to drown out the negative thoughts. Pt. reports he is glad that his Effexor was increased to 150mg today and hopes that his provider will start him on Wellbutrin soon. Pt. reports he continues to be tearful. Pt. observed in the community room coloring and at times socializing with peers. S/I, H/I: Denies. A/VH: Denies. Sleep: Pt slept 7 hours last night per NOC shift. No naps noted on this shift. ADL's: Independent Group attendance: Yes Were meds taken: Yes Any med S/E: None observed or reported Mental Status Exam Appearance: Casual in personal attire. Wearing eye glasses. Clean, neat. Eye contact: WNL Behavior: Cooperative, pleasant, coloring in the community room, social Speech: WNL Mood: Anxious, depressed, tearful Affect: Depressed Thought process: Linear Thought Content: Concern about medication regimen and d/c plan. Cognition: A&O X4 Insight: Fair Judgment: Fair Interventions PRN's used: Nicotine lozenges Therapeutic interventions: Maintained a safe and supportive environment, ensured contract for safety, provided clear and simple instructions, completed CIWA assessment, and maintained Q 15min safety checks. Restraints/seclusion/emergency medication: N/A Justification of Continued Inpatient Treatment: Pt. requires interruption of current crisis, medication adjustments, and a safe and supportive environment.
[2022-03-14 19:55] VITALS: BP 104/55
[2022-03-14] MEDS: traZODone 50mg tablet PO SCH (21:49)
--- NOTE | 2022-03-15 04:23 | NUR ---
Nursing Progress Note Legal hold: VOL Client on voluntary status Report received from ANGELA Moss with use of SBAR Why are they here: 5150 states, You attempted suicide by overdosing on alcohol, attempting to hang yourself, and obtained a gun from a friend. What has happened this shift: Patient watching TV in the community room with peers at the beginning of shift. Pleasant and cooperative with care; compliant with medication. PRN Nicotine lozenges provided and patch removed. Patient endorsed intermittent SI throughout the day without a plan; explained his stressors being uncertainty of where he'll live and previously having poor experiences with rehab. "They just don't work for me." Patient observed stalking on the phone, participated in HS snack and social with peers prior to bed; observed sleeping and does not appear to be having difficulty. Justification of Continued Inpatient Treatment: Pt. requires interruption of current crisis, medication adjustments, and a safe and supportive environment.
--- NOTE | 2022-03-15 07:19 | NUR ---
Met with patient in regards to alcohol use and to see if patient wanted any resources for treatment options. Patient said that he has been to rehab before, attended AA and had a sponsor and he doesn't feel like he wants to do that again. I talked to him about medication to help him with cravings. He isn't interested in that either.
[2022-03-15] MEDS: pantoprazole 40mg Tablet.DR PO SCH (07:23)
[2022-03-15] MEDS: LORazepam 1 MG tablet PO SCH ×3 (07:23→20:46)
[2022-03-15] MEDS: venlafaxine XR 75mg capsule (Q24H) PO SCH (07:23)
[2022-03-15] MEDS: thiamine 100mg tablet PO SCH (07:23)
[2022-03-15] MEDS: folic acid 1mg tablet PO SCH (07:23)
[2022-03-15] MEDS: nicotine 21mg patch - 24 hr TD SCH (07:24)
[2022-03-15] MEDS: NICOTINE POLACRILEX 2 MG LOZENGE BC PRN ×4 (07:27→18:16)
[2022-03-15 08:48] VITALS: BP 131/89
--- NOTE | 2022-03-15 09:58 | NUR ---
Pt. attended group today. We talked about Boundaries, the different kinds and how to communicate our boundaries to others. We also talked about 'I messages" and how to form an "I message" statement to help communicating our needs and wants. Pt. engaged appropriately in the group. He shared his thoughts about his journey with codependency and learning how to have boundaries with people in his personal relationship and in his work relationships. He showed insight into his own mental health issues. He was alert and oriented X 4. His thought process and thought content was WNL. His demeanor was calm, compliant and pleasant to work with. Anuja Quispe LCSW
--- NOTE | 2022-03-15 17:45 | NUR ---
Nursing Progress Note: [facility] Legal hold: Voluntary Client on involuntary status for DTS Report received from ANGELA Taylor with use of SBAR Why are they here: 5150 states, You attempted suicide by overdosing on alcohol, attempting to hang yourself, and obtained a gun from a friend. Pt. states, I tried to drink myself to . Pt. reports he had been sober, but that 3 weeks ago he started drinking 2.5 liters of vodka and 8 large IPA beers daily. Pt. reports he wanted to end his life because he feels like a failure after his marriage ended and he is tired of feeling sorry for himself. Pt. denies current SI/HI, A/V hallucinations. However, pt. reports that had been experiencing voices that make him laugh as well as people sitting next to him when theres no one there. Assessment What has happened this shift: RN received pt. asleep in bed at start of shift. Pt. awoke for breakfast and took all medications. Pt. reports he did not sleep well last night due to anxiety. During 1:1 pt. reports continued depression, anxiety, and fear about his discharge plan. Pt. went to groups and socializes with peers. Pt. heard laughing and talking loudly with peers during card games in the community room. Pt. observed napping in the afternoon. S/I, H/I: Denies. A/VH: Denies. Sleep: Pt slept 7 hours last night per NOC shift. No naps noted on this shift. ADL's: Independent Group attendance: Yes Were meds taken: Yes Any med S/E: None observed or reported Mental Status Exam Appearance: Casual in personal attire. Wearing eye glasses. Clean, neat. Eye contact: WNL Behavior: Cooperative, pleasant, coloring in the community room, social Speech: WNL Mood: Pt. reports feeling anxious. Affect: Affect is bright and not congruent with reported symptoms. Thought process: Linear Thought Content: Concern about medication regimen and d/c plan. Cognition: A&O X4 Insight: Fair Judgment: Fair Interventions PRN's used: Nicotine lozenges Therapeutic interventions: Maintained a safe and supportive environment, ensured contract for safety, provided clear and simple instructions, completed CIWA assessment, and maintained Q 15min safety checks. Restraints/seclusion/emergency medication: N/A Justification of Continued Inpatient Treatment: Pt. requires interruption of current crisis, medication adjustments, and a safe and supportive environment.
[2022-03-15 19:49] VITALS: BP 103/57
[2022-03-15] MEDS: traZODone 50mg tablet PO SCH (20:46)
--- NOTE | 2022-03-16 04:29 | NUR ---
Nursing Progress Note Legal hold: VOL Client on voluntary status Report received from ANGELA Guzman with use of SBAR Why are they here: 5150 states, You attempted suicide by overdosing on alcohol, attempting to hang yourself, and obtained a gun from a friend. What has happened this shift: Patient laying in bed with headphones on and eyes covered at the beginning of shift. Pleasant and cooperative with care; compliant with medication. Nicotine patch removed. Patient endorses intermittent passive SI this shift. He became tearful when explaining that his discharge plan fell through. He denies HI, A/VH; no apparent delusions expressed. Patient remained self-isolative this shift; participated in HS snack and returned to bed. He is observed sleeping and does not appear to be having difficulty. Justification of Continued Inpatient Treatment: Pt. requires interruption of current crisis, medication adjustments, and a safe and supportive environment.
--- NOTE | 2022-03-16 07:02 | NUR ---
Reassessment; Pt continues on Regular diet w/ mostly 100% intake of meals and participates in some snacks per documentation, overall meeting est nutrient needs at this time. LBM 03/14 w/ PRN bowel care available. No nutrition intervention implemented at this time, will continue to monitor. Recs: 1. Continue Regular diet as tolerated 2. Routine thiamine, folic acid for EtOH hx 3. Bowel care per rx 4. Scaled wt this admit Addendum: 03/16/22 at [address] Amended: Links added.
[2022-03-16 07:30] VITALS: BP 120/77
[2022-03-16] MEDS: thiamine 100mg tablet PO SCH (07:40)
[2022-03-16] MEDS: folic acid 1mg tablet PO SCH (07:40)
[2022-03-16] MEDS: buPROPion 75mg tablet PO SCH ×3 (07:40→17:19)
[2022-03-16] MEDS: venlafaxine XR 75mg capsule (Q24H) PO SCH (07:40)
[2022-03-16] MEDS: pantoprazole 40mg Tablet.DR PO SCH (07:40)
[2022-03-16] MEDS: LORazepam 0.5 MG tablet PO SCH ×3 (07:47→17:19)
[2022-03-16] MEDS: nicotine 21mg patch - 24 hr TD SCH (07:48)
[2022-03-16] MEDS ORDERED: LORazepam 1 MG tablet PO SCH (08:00)
[2022-03-16] MEDS: NICOTINE POLACRILEX 2 MG LOZENGE BC PRN ×4 (13:15→20:41)
--- NOTE | 2022-03-16 15:08 | NUR ---
CASE MANAGEMENT Met with Pt. today to discuss his plans for discharge. Pt. presented disheveled and his mood appeared depressive. He reported that he is feeling pretty bad today because he found out that his parents are not willing for him to come back to their house. He also found out that his idea about buying his brother's trailer is not going to work either as they do not want to sell it to him at this time. he is feeling at a loss about what to do and where to go. We discussed options in the community. He is hesitant about sober living or rehabs reporting he has done this before and it is redundant. He stated, "I may just rent a hotel room again but I know if I do that I will end up drinking." He reported feeling suicidal again triggered by his perceived lack of family support. He stated, "They are using tough love on me". Anuja Quispe, REPORTS ANALYSIS MANAGER
[2022-03-16] MEDS: venlafaxine 37.5mg tablet PO SCH (17:19)
--- NOTE | 2022-03-16 17:53 | NUR ---
Nursing Progress Note: Legal hold: Voluntary Client on involuntary status for DTS Report received from ANGELA Taylor with use of SBAR Why are they here: 5860 states, You attempted suicide by overdosing on alcohol, attempting to hang yourself, and obtained a gun from a friend. Pt. states, I tried to drink myself to . Pt. reports he had been sober, but that 3 weeks ago he started drinking 2.5 liters of vodka and 8 large IPA beers daily. Pt. reports he wanted to end his life because he feels like a failure after his marriage ended and he is tired of feeling sorry for himself. Pt. denies current SI/HI, A/V hallucinations. However, pt. reports that had been experiencing voices that make him laugh as well as people sitting next to him when theres no one there. Assessment What has happened this shift: Pt. asleep in bed at start of shift. Pt. awoke and took medications, pt. observed looking out his window. 1:1 done at bedside, pt. is tearful and reports he is fearful and depressed after the conversation he had with his parents yesterday. Pt. states he will be homeless because he has nowhere to go and does not want to go to rehab because he usually gets discharged after 15 days because he has private insurance. Pt. reports SI, when asked if he has a plan, pt. states, Theres a lot of options, but I would probably hang myself. Pt. observed watching TV in the afternoon in the community room and engaging with peers. S/I, H/I: Denies. A/VH: Denies. Sleep: Pt slept 8.75 hours last night per NOC shift. No naps noted on this shift. ADL's: Independent Group attendance: Yes Were meds taken: Yes Any med S/E: Denies. None observed. Mental Status Exam Appearance: Casual in personal attire. Wearing eye glasses. Clean, neat. Eye contact: WNL Behavior: Cooperative, socially withdrawn, resting in his room. Speech: WNL Mood: Depressed and anxious Affect: Congruent with mood. Thought process: Linear Thought Content: Concern about discharge plan and relapsing. Cognition: A&O X4 Insight: Fair Judgment: Fair Interventions PRN's used: Nicotine lozenges Therapeutic interventions: Maintained a safe and supportive environment, ensured contract for safety, provided clear and simple instructions, completed CIWA assessment, and maintained Q 15min safety checks. Restraints/seclusion/emergency medication: N/A Justification of Continued Inpatient Treatment: Pt. requires interruption of current crisis, medication adjustments, and a safe and supportive environment.
[2022-03-16 20:48] VITALS: BP 123/73
[2022-03-16] MEDS: traZODone 50mg tablet PO SCH (21:53)
--- NOTE | 2022-03-17 03:42 | NUR ---
Nursing Progress Note Legal hold: VOL Client on voluntary status Report received from ANGELA Anderson with use of SBAR Why are they here: 5150 states, You attempted suicide by overdosing on alcohol, attempting to hang yourself, and obtained a gun from a friend. What has happened this shift: Patient was received sitting in community room at beginning of shift. Patient continued to sit in community room watching tv and movies until coming to ask nurse for medications at a later time. Patient participated in snack and requested a nicotine lozenge. Patient was later observed sitting in the community room socializing with other patients. At 2145 patient requested night medications. Patient took medications without difficulty and went to bed.
[2022-03-17 07:40] VITALS: BP 127/85
[2022-03-17] MEDS: thiamine 100mg tablet PO SCH (07:55)
[2022-03-17] MEDS: buPROPion 75mg tablet PO SCH ×3 (07:55→18:09)
[2022-03-17] MEDS: LORazepam 0.5 MG tablet PO SCH ×3 (07:55→18:09)
[2022-03-17] MEDS: pantoprazole 40mg Tablet.DR PO SCH (07:55)
[2022-03-17] MEDS: folic acid 1mg tablet PO SCH (07:56)
[2022-03-17] MEDS: venlafaxine 37.5mg tablet PO SCH ×2 (07:56→18:08)
[2022-03-17] MEDS: nicotine 21mg patch - 24 hr TD SCH (07:57)
[2022-03-17] MEDS: NICOTINE POLACRILEX 2 MG LOZENGE BC PRN ×5 (09:08→20:08)
--- NOTE | 2022-03-17 15:49 | NUR ---
CASE MANAGEMENT Spoke with Ambrocio's mother Rufina Pendleton this morning. She reported that they are unable to have him stay with them. She was tearful on the call and reported she is very worried about her son being alone but recognizes they have to treat him with tough love so he will get help. Spoke to Pt. about this, Pt reported that he may be willing to go to a rehab at this point but he reported he usually does it for others. We discussed how that has worked for him in the past. He is hesitant about what to do and appears to feel frustrated with his parents yet also understands their perspective. Anuja Quispe, PLAYROOM ATTENDANT
--- NOTE | 2022-03-17 17:52 | NUR ---
Nursing Progress Note: Ambrocio Legal hold: Voluntary Client on involuntary status for DTS Report received from ANGELA Taylor with use of SBAR Why are they here: 5150 states, You attempted suicide by overdosing on alcohol, attempting to hang yourself, and obtained a gun from a friend. Pt. states, I tried to drink myself to . Pt. reports he had been sober, but that 3 weeks ago he started drinking 2.5 liters of vodka and 8 large IPA beers daily. Pt. reports he wanted to end his life because he feels like a failure after his marriage ended and he is tired of feeling sorry for himself. Pt. denies current SI/HI, A/V hallucinations. However, pt. reports that had been experiencing voices that make him laugh as well as people sitting next to him when theres no one there. Assessment What has happened this shift: Patient observed sleeping in his room at shift change with no s/s of distress. He awoke and approached this copywriter before breakfast endorsing that he is feeling down this morning. Patient reporting that he got some depressing news and doesnt know where he is going to live. Patient appearing depressed with a downcast expression on his face. He joined for breakfast in the group room with peers. Patient was receptive to scheduled medication and 1:1 assessment. He was observed sitting in the group room looking through a magazine and socializing with peers throughout the morning. He denies SI, HI, AH or VH on this shift. Does not appear to be responding to internal stimuli. Patient was observed participating in group therapy today, interacting and engaging appropriately. He continues to present as pleasant, social, and cooperative with care. Patient observed to be active on the unit throughout the shift and social with peers. He joined for all meal and snack times in the group room this shift. S/I, H/I: Denies. A/VH: Denies. Sleep: Pt slept 6.5 hours last night per NOC shift. No naps noted on this shift. ADL's: Independent Group attendance: Yes Were meds taken: Yes Any med S/E: None observed or reported. Mental Status Exam Appearance: Medium height husky middle aged man wearing personal attire. He is clean, neat, and has some horne growth. Wearing eye glasses. Eye contact: Good, WNL Behavior: Cooperative, social, appears depressed Speech: Clear, soft, WNL Mood: Feeling down Affect: Congruent with mood. Thought process: Linear Thought Content: Concerned about discharge plan. Meeting needs. Cognition: A&O X4 Insight: Fair Judgment: Fair Interventions PRN's used: Nicotine lozenges Therapeutic interventions: Maintained a safe and supportive environment, ensured contract for safety, provided clear and simple instructions, therapeutic communication, and maintained Q 15min safety checks. Restraints/seclusion/emergency medication: N/A Justification of Continued Inpatient Treatment: Pt. requires interruption of current crisis, medication adjustments, and a safe and supportive environment.
[2022-03-17 20:00] VITALS: BP 111/70
[2022-03-17] MEDS ORDERED: LORazepam 1 MG tablet PO ONE (20:55)
[2022-03-17] MEDS: traZODone 50mg tablet PO SCH (22:15)
--- NOTE | 2022-03-18 01:11 | NUR ---
Nursing Progress Note: Ambrocio Legal hold: Voluntary Client on involuntary status for DTS Report received from ANGELA Anderson with use of SBAR Why are they here: 5150 states, You attempted suicide by overdosing on alcohol, attempting to hang yourself, and obtained a gun from a friend. Pt. states, I tried to drink myself to . Pt. reports he had been sober, but that 3 weeks ago he started drinking 2.5 liters of vodka and 8 large IPA beers daily. Pt. reports he wanted to end his life because he feels like a failure after his marriage ended and he is tired of feeling sorry for himself. Pt. denies current SI/HI, A/V hallucinations. However, pt. reports that had been experiencing voices that make him laugh as well as people sitting next to him when theres no one there. Assessment What has happened this shift: Patient observed to be in his room with headphones on. 1:1 assessment done at the bedside. Pt voiced significant depression stating he is worried about where he will be going after discharge. He states he just wants to [place] in his [place] and get a hotel. He is scared and concerned about not making a rational decision when he leaves. He doesnt think rehab is for him and when this com writer questions him about it he states he wants more than to just get sober. Pt has family support but they are giving him tough love right now. Pt became tearful during conversation and requested Ativan. Provider notified and 1MG Ativan given with good effect. Pt observed to be in the community room with peers during snack time and took HS medications. S/I, H/I: Denies A/VH: Denies. Sleep: ADL's: Independent Group attendance: Were meds taken: Yes Any med S/E: None observed or reported. Mental Status Exam Appearance: Medium height husky middle aged man wearing personal attire. He is clean, neat, and has some horne growth. Wearing eye glasses. Eye contact: Good, WNL Behavior: Cooperative, social, appears depressed Speech: Clear, soft, WNL Mood: Feeling down Affect: Congruent with mood. Thought process: Linear Thought Content: Concerned about discharge plan. Meeting needs. Cognition: A&O X4 Insight: Fair Judgment: Fair Interventions PRN's used: Nicotine lozenges Therapeutic interventions: Maintained a safe and supportive environment, ensured contract for safety, provided clear and simple instructions, therapeutic communication, and maintained Q 15min safety checks. Restraints/seclusion/emergency medication: N/A Justification of Continued Inpatient Treatment: Pt. requires interruption of current crisis, medication adjustments, and a safe and supportive environment.
[2022-03-18 08:00] VITALS: BP 116/81
[2022-03-18] MEDS: thiamine 100mg tablet PO SCH (08:00)
[2022-03-18] MEDS: venlafaxine 37.5mg tablet PO SCH ×2 (08:00→17:33)
[2022-03-18] MEDS: folic acid 1mg tablet PO SCH (08:00)
[2022-03-18] MEDS: buPROPion 75mg tablet PO SCH ×3 (08:00→17:32)
[2022-03-18] MEDS: NICOTINE POLACRILEX 2 MG LOZENGE BC PRN ×5 (08:00→19:00)
[2022-03-18] MEDS: pantoprazole 40mg Tablet.DR PO SCH (08:00)
[2022-03-18] MEDS: LORazepam 0.5 MG tablet PO SCH ×3 (08:00→17:32)
[2022-03-18] MEDS: nicotine 21mg patch - 24 hr TD SCH (08:01)
[2022-03-18] MEDS ORDERED: hydrOXYzine 25 MG tablet PO PRN (15:05)
--- NOTE | 2022-03-18 15:34 | NUR ---
Met with Ambrocio with Dr Horan to discuss discharge planning. Ambrocio's sister had someone from [facility] meet with Ambrocio on the unit without his knowledge this was going to occur. Discussed various d/c options such as [facility], [facility], [facility], and [facility]. Ambrocio reported he will call [facility] and [facility] to see if they take his insurance. Provided him with a phone # for a rehab in [facility] that may take his insurance. Ambrocio reported he has had on-going suicidal thoughts the last couple days. He reported typically the thoughts are fleeting, but the last couple days he has been thinking about suicide a lot. He reported he is afraid of what he would do if he were to discharge today. Encouraged him to call rehabs to get information and see if they will take his insurance and if he is willing to go to them. Service Technician Copier will check in with him on Monday. RAHAT Montenegro
[2022-03-18] MEDS: ferrous sulfate 325mg tablet PO SCH (17:32)
--- NOTE | 2022-03-18 17:48 | NUR ---
Nursing Progress Note: Ambrocio Legal hold: Voluntary Client on involuntary status for DTS Report received from Zeynep Ahumada RN with use of SBAR Why are they here: 5150 states, You attempted suicide by overdosing on alcohol, attempting to hang yourself, and obtained a gun from a friend. Pt. states, I tried to drink myself to . Pt. reports he had been sober, but that 3 weeks ago he started drinking 2.5 liters of vodka and 8 large IPA beers daily. Pt. reports he wanted to end his life because he feels like a failure after his marriage ended and he is tired of feeling sorry for himself. Pt. denies current SI/HI, A/V hallucinations. However, pt. reports that had been experiencing voices that make him laugh as well as people sitting next to him when theres no one there. Assessment What has happened this shift: Patient received sleeping in bed at change of shift this morning. He awoke and was observed joining in the group room for breakfast with peers. He was observed socializing with peers at breakfast. Patient was receptive to scheduled medication. He was noted isolating to his room, looking out the window while listening to music throughout the morning. He continues to appear depressed with a downcast expression on his face. Patient endorsed concern to this ghost writer over where he will go when he leaves. Patient endorsing that he would only go to a rehab program to buy time and prevent being homeless. Patient reports that he does not want to go to the [facility] but has nowhere else to stay. He became tearful when talking to this ghost writer, reporting that he has had constant bad thoughts. Patient endorsed that he thinks about drinking until he gets enough courage to hang himself. He denies HI, AH or VH. Does not appear to be responding to internal stimuli. Patient appears tearful, withdrawn, and depressed throughout the shift. He joined for all meal and snack times in the group room with peers. S/I, H/I: Denies. A/VH: Denies. Sleep: Pt slept 5.75 hours last night per NOC shift. No naps noted on this shift. ADL's: Independent Group attendance: No group provided Were meds taken: Yes Any med S/E: None observed or reported. Mental Status Exam Appearance: Medium height husky middle aged man wearing personal attire. He is clean, neat, and has some horne growth. Wearing eye glasses. Eye contact: Good, WNL Behavior: Cooperative, withdrawn, appears depressed Speech: Clear, soft, WNL Mood: Tearful, appears depressed Affect: Congruent with mood. Thought process: Linear Thought Content: Concerned about discharge plan. Meeting needs. Cognition: A&O X4 Insight: Fair Judgment: Fair Interventions PRN's used: Nicotine lozenges Therapeutic interventions: Maintained a safe and supportive environment, ensured contract for safety, provided clear and simple instructions, therapeutic communication, and maintained Q 15min safety checks. Restraints/seclusion/emergency medication: N/A Justification of Continued Inpatient Treatment: Pt. requires interruption of current crisis, medication adjustments, and a safe and supportive environment.
[2022-03-18 19:12] VITALS: BP 164/62
[2022-03-18] MEDS: traZODone 50mg tablet PO SCH (21:48)
--- NOTE | 2022-03-19 03:55 | NUR ---
Nursing Progress Note: Ambrocio Legal hold: Voluntary Client on involuntary status for DTS Report received from ANGELA Anderson with use of SBAR Why are they here: 5150 states, You attempted suicide by overdosing on alcohol, attempting to hang yourself, and obtained a gun from a friend. Pt. states, I tried to drink myself to . Pt. reports he had been sober, but that 3 weeks ago he started drinking 2.5 liters of vodka and 8 large IPA beers daily. Pt. reports he wanted to end his life because he feels like a failure after his marriage ended and he is tired of feeling sorry for himself. Pt. denies current SI/HI, A/V hallucinations. However, pt. reports that had been experiencing voices that make him laugh as well as people sitting next to him when theres no one there. Assessment What has happened this shift: Patient was observed sitting in community room watching tv and socializing with other patients. Patient stayed in community room all night exact for coming out to ask for nicotine lozenges. Patient was found playing games with other patients and watching movies. Patients mother called to check in and patient was happy to hear from her. Patient participated in snack and asked to have medications given later due to them sedating him. Patient took medications at 2147 and went to bed.
[2022-03-19 08:00] VITALS: BP 121/77
[2022-03-19] MEDS: venlafaxine 37.5mg tablet PO SCH ×3 (08:32→17:14)
[2022-03-19] MEDS: nicotine 21mg patch - 24 hr TD SCH (08:32)
[2022-03-19] MEDS: ferrous sulfate 325mg tablet PO SCH ×3 (08:32→17:14)
[2022-03-19] MEDS: buPROPion 75mg tablet PO SCH ×3 (08:32→17:14)
[2022-03-19] MEDS: thiamine 100mg tablet PO SCH (08:32)
[2022-03-19] MEDS: LORazepam 0.5 MG tablet PO SCH ×3 (08:33→17:14)
[2022-03-19] MEDS: folic acid 1mg tablet PO SCH (08:33)
[2022-03-19] MEDS: pantoprazole 40mg Tablet.DR PO SCH (08:33)
[2022-03-19] MEDS: NICOTINE POLACRILEX 2 MG LOZENGE BC PRN ×4 (09:28→20:41)
--- NOTE | 2022-03-19 15:57 | NUR ---
Nursing Progress Note: Ambrocio Legal hold: Voluntary Client on involuntary status for DTS Report received from NOC RN with use of SBAR Why are they here: 5150 states, You attempted suicide by overdosing on alcohol, attempting to hang yourself, and obtained a gun from a friend. Pt. states, I tried to drink myself to . Pt. reports he had been sober, but that 3 weeks ago he started drinking 2.5 liters of vodka and 8 large IPA beers daily. Pt. reports he wanted to end his life because he feels like a failure after his marriage ended and he is tired of feeling sorry for himself. Pt. denies current SI/HI, A/V hallucinations. However, pt. reports that had been experiencing voices that make him laugh as well as people sitting next to him when theres no one there. Assessment What has happened this shift: Patient was observed sitting in community room watching tv and socializing with other patients. Patient waling hallway with other patients. Patient was found playing games with other patients and watching movies. Patient participated in snack and socializing with other patients.
[2022-03-19 20:25] VITALS: BP 115/63
[2022-03-19] MEDS: traZODone 50mg tablet PO SCH (22:01)
--- NOTE | 2022-03-20 04:10 | NUR ---
Nursing Progress Note: Ambrocio Legal hold: Voluntary Client on involuntary status for DTS Report received from ANGELA Anderson with use of SBAR Why are they here: 5150 states, You attempted suicide by overdosing on alcohol, attempting to hang yourself, and obtained a gun from a friend. Pt. states, I tried to drink myself to . Pt. reports he had been sober, but that 3 weeks ago he started drinking 2.5 liters of vodka and 8 large IPA beers daily. Pt. reports he wanted to end his life because he feels like a failure after his marriage ended and he is tired of feeling sorry for himself. Pt. denies current SI/HI, A/V hallucinations. However, pt. reports that had been experiencing voices that make him laugh as well as people sitting next to him when theres no one there. Assessment What has happened this shift: Pt spent all evening hanging out with peers in the dayroom. Pt states he is trying to remain more visible and not isolate as much. Pt took his hs meds just before 2200 and has been asleep since. S/I, H/I: Denies A/VH: Denies. Sleep: ADL's: Independent Group attendance: Were meds taken: Yes Any med S/E: None observed or reported. Mental Status Exam Appearance: Medium height husky middle aged man wearing personal attire. He is clean, neat, and has some horne growth. Wearing eye glasses. Eye contact: Good, WNL Behavior: Cooperative, social, appears depressed Speech: Clear, soft, WNL Mood: Feeling down Affect: Congruent with mood. Thought process: Linear Thought Content: Concerned about discharge plan. Meeting needs. Cognition: A&O X4 Insight: Fair Judgment: Fair Interventions PRN's used: Nicotine lozenges Therapeutic interventions: Maintained a safe and supportive environment, ensured contract for safety, provided clear and simple instructions, therapeutic communication, and maintained Q 15min safety checks. Restraints/seclusion/emergency medication: N/A Justification of Continued Inpatient Treatment: Pt. requires interruption of current crisis, medication adjustments, and a safe and supportive environment.
[2022-03-20] MEDS: folic acid 1mg tablet PO SCH (07:39)
[2022-03-20] MEDS: venlafaxine 37.5mg tablet PO SCH ×3 (07:39→17:22)
[2022-03-20] MEDS: buPROPion 75mg tablet PO SCH ×3 (07:39→17:23)
[2022-03-20] MEDS: ferrous sulfate 325mg tablet PO SCH ×3 (07:39→17:23)
[2022-03-20] MEDS: thiamine 100mg tablet PO SCH (07:39)
[2022-03-20] MEDS: LORazepam 0.5 MG tablet PO SCH ×3 (07:39→17:22)
[2022-03-20] MEDS: pantoprazole 40mg Tablet.DR PO SCH (07:39)
[2022-03-20] MEDS: nicotine 21mg patch - 24 hr TD SCH (07:40)
[2022-03-20 08:02] VITALS: BP 116/73
[2022-03-20] MEDS: NICOTINE POLACRILEX 2 MG LOZENGE BC PRN ×5 (08:25→21:09)
--- NOTE | 2022-03-20 17:55 | NUR ---
Nursing Progress Note: Ambrocio Legal hold: Voluntary Client on involuntary status for DTS Report received from ANGELA Damico with use of SBAR Why are they here: 5150 states, You attempted suicide by overdosing on alcohol, attempting to hang yourself, and obtained a gun from a friend. Pt. states, I tried to drink myself to . Pt. reports he had been sober, but that 3 weeks ago he started drinking 2.5 liters of vodka and 8 large IPA beers daily. Pt. reports he wanted to end his life because he feels like a failure after his marriage ended and he is tired of feeling sorry for himself. Pt. denies current SI/HI, A/V hallucinations. However, pt. reports that had been experiencing voices that make him laugh as well as people sitting next to him when theres no one there. Assessment What has happened this shift: Received patient while he was awake in the Community Room sitting and drinking coffee, and interacting with other peers. Patient pleasant and stated I am feeling better today. I want to meet with a Pin Drafting Machine Operator in the morning because my talk with my mom has been positive, so Im hoping that I get to come home. I laid in bed for 4 days feeling hopeless. Patient ate his breakfast at 1100 snacks in the Community Room. Patient was observed coloring in the Community Room and stated I am learning to color in between the lines. Patient requested Nicotine Lozenges as needed. S/I, H/I: Denies A/VH: Denies. Sleep: 6.5 hours of sleep ADL's: Independent Group attendance: No Group Meeting Held Today. Were meds taken: Yes, without hesitation Any med S/E: None observed or reported. Mental Status Exam Appearance: Medium height husky middle aged man wearing personal attire. He is clean, neat, and has some horne growth. Wearing eye glasses. Eye contact: Good Contact Behavior: Cooperative, social Speech: Clear, soft, WNL Mood: Doing Affect: Congruent with mood. Thought process: Linear Thought Content: Concerned about discharge plan. Meeting needs. Cognition: A&O X4 Insight: Fair Judgment: Fair Interventions PRN's used: Nicotine lozenges Therapeutic interventions: Maintained a safe and supportive environment, ensured contract for safety, provided clear and simple instructions, therapeutic communication, and maintained Q 15min safety checks. Restraints/seclusion/emergency medication: N/A Justification of Continued Inpatient Treatment: Pt. requires interruption of current crisis, medication adjustments, and a safe and supportive environment.
[2022-03-20 19:59] VITALS: BP 113/71
[2022-03-20] MEDS: traZODone 50mg tablet PO SCH (22:04)
--- NOTE | 2022-03-21 01:31 | NUR ---
Nursing Progress Note: Legal hold: Voluntary Report received from ANGELA Anderson with use of SBAR Why are they here: 5150 states, You attempted suicide by overdosing on alcohol, attempting to hang yourself, and obtained a gun from a friend. Pt. states, I tried to drink myself to . Pt. reports he had been sober, but that 3 weeks ago he started drinking 2.5 liters of vodka and 8 large IPA beers daily. Pt. reports he wanted to end his life because he feels like a failure after his marriage ended and he is tired of feeling sorry for himself. Pt. denies current SI/HI, A/V hallucinations. However, pt. reports that had been experiencing voices that make him laugh as well as people sitting next to him when theres no one there. Assessment What has happened this shift: Pt in group room watching TV and interacting with peers. Pt is pleasant and cooperative. Discussed pt's DC plan with pt. Per pt his parents have agreed to let him stay with them. Per SS note on the pt's mother said they are not going to allow pt to stay with them because they want him to go to rehab. Pt says he has contacted several rehabs but they will not take his insurance but will take [employer]. He plans to ask the social work coordinator to help him apply for [employer] he thinks he will qualify. He also says that he believes if he stays on his medications he will be able to abstain from alcohol. He says he realizes he will need to take medications for the rest of his life. S/I, H/I: Has "fleeting thoughts but does not dwell on them" Denies H/I A/VH: Denies. Sleep: asleep at this time ADL's: Independent Group attendance: NA Were meds taken: Yes, Any med S/E: No Mental Status Exam Appearance: Medium height husky middle aged man wearing personal attire. He is clean, neat, and has some horne growth. Wearing eye glasses. Eye contact: Good Behavior: Cooperative, social Speech: Clear, soft, WNL Mood: Doing good" Affect: Congruent with mood. Thought process: Linear Thought Content: discharge plan. Cognition: A&O X4 Insight: Fair Judgment: Fair Interventions PRN's used: Nicotine lozenges Therapeutic interventions: Maintained a safe and supportive environment, ensured contract for safety, provided clear and simple instructions, therapeutic communication, and maintained Q 15min safety checks. Restraints/seclusion/emergency medication: N/A Justification of Continued Inpatient Treatment: Pt. requires interruption of current crisis, medication adjustments, and a safe and supportive environment.
[2022-03-21] MEDS: nicotine 21mg patch - 24 hr TD SCH (07:22)
[2022-03-21] MEDS: ferrous sulfate 325mg tablet PO SCH ×3 (07:22→16:32)
[2022-03-21] MEDS: thiamine 100mg tablet PO SCH (07:22)
[2022-03-21] MEDS: pantoprazole 40mg Tablet.DR PO SCH (07:22)
[2022-03-21] MEDS: LORazepam 0.5 MG tablet PO SCH ×3 (07:22→16:31)
[2022-03-21] MEDS: venlafaxine 37.5mg tablet PO SCH ×3 (07:22→16:31)
[2022-03-21] MEDS: folic acid 1mg tablet PO SCH (07:22)
[2022-03-21] MEDS: buPROPion 75mg tablet PO SCH ×3 (07:22→16:31)
[2022-03-21 07:48] VITALS: BP 114/79
[2022-03-21] MEDS: NICOTINE POLACRILEX 2 MG LOZENGE BC PRN ×4 (09:41→21:10)
--- NOTE | 2022-03-21 12:53 | NUR ---
CASE MANAGEMENT Spoke to Pt's mother again today who reported that she and her had a change of heart about Pt. saying at their house. She reported that they recognize that he has a mental illness and with some agreed upon rules (no drinking and has to be compliant with meds etc) he can stay with them for a period of time while he looks for other housing. She reported that he is welcome to stay there once he is ready to leave [facility]. Anuja Quispe, SUPERVISOR GRINDING
--- NOTE | 2022-03-21 13:38 | NUR ---
Pt. attended group today. We talked about how we all look at the world differently due to our core beliefs. These core beliefs then inform thoughts and behaviors. Each pt. identified one negative core belief and then wrote out three truths that contradict their negative beliefs to work on thinking differently. Pt. engaged appropriately in the group today sharing his own negative cognition. He was able to contradict it and come up with a new affirming thought. He was alert and oriented X 4. His thought content and thought process was WNL. His demeanor is calm, compliant and pleasant to work with. He showed insight into his own mental illness. VIRI LayW
--- NOTE | 2022-03-21 16:07 | NUR ---
Nursing Progress Note: Legal hold: Voluntary Client on involuntary status for DTS Report received from ANGELA Thacker with use of SBAR Why are they here: 5200 states, You attempted suicide by overdosing on alcohol, attempting to hang yourself, and obtained a gun from a friend. Pt. states, I tried to drink myself to . Pt. reports he had been sober, but that 3 weeks ago he started drinking 2.5 liters of vodka and 8 large IPA beers daily. Pt. reports he wanted to end his life because he feels like a failure after his marriage ended and he is tired of feeling sorry for himself. Pt. denies current SI/HI, A/V hallucinations. However, pt. reports that had been experiencing voices that make him laugh as well as people sitting next to him when theres no one there. Assessment What has happened this shift: Received patient while he was sleeping in bed at 0730. Awoke patient to give him his 0700 medications. Patient awake and asked how he was doing this morning. Patient states Im doing. I slept well last night. Patient arose and used the bathroom and combed his hair then stated Im going to be in the dining room. Patient sat in the front of the dining room with the same peers from yesterday and talked with peers and laughter over breakfast. Patient ate his breakfast, then stayed after breakfast playing cards with 3 other peers, and laughed during this period of time and appears like they are all having fun. Patient kept sitting there until snack at 1100 then encouraged to attend Group Meeting at 1115. Patient informed me that he was planning on going to the Group Meeting today. Observation of the Community Room during Group Meeting showed the patient participating and sharing his answers and insight at this meeting. Patient stayed in the Community Room until after eating lunch at 1255. Patient then returned to his room to take a nap. Patient resting at this time. S/I, H/I: Denies A/VH: Denies. Sleep: 6.25 hours of sleep ADL's: Independent Group attendance: Attended Group Meeting today and participated. Were meds taken: Yes, without hesitation. Any med S/E: None observed or reported. Mental Status Exam Appearance: Medium height husky middle aged man wearing personal attire. He is clean, neat, and has some horne growth. Wearing eye glasses. Eye contact: Good eye contact Behavior: Cooperative, social Speech: Clear, soft Mood: Im doing. I slept well last night. Affect: Congruent with mood. Thought process: Linear Thought Content: Concerned about continuation of alcohol treatment program at time of discharge. Cognition: A&O X4 Insight: Fair Judgment: Fair Interventions PRN's used: Nicotine lozenges Therapeutic interventions: Maintained a safe and supportive environment, ensured contract for safety, provided clear and simple instructions, therapeutic communication, and maintained Q 15min safety checks. Restraints/seclusion/emergency medication: N/A Justification of Continued Inpatient Treatment: Pt. requires interruption of current crisis, medication adjustments, and a safe and supportive environment.
[2022-03-21 19:50] VITALS: BP 108/73
[2022-03-21] MEDS: traZODone 50mg tablet PO SCH (21:58)
--- NOTE | 2022-03-22 00:50 | NUR ---
Nursing Progress Note: Legal hold: Voluntary Client on involuntary status for DTS Report received from ANGELA Anderson with use of SBAR Why are they here: 7580 states, You attempted suicide by overdosing on alcohol, attempting to hang yourself, and obtained a gun from a friend. Pt. states, I tried to drink myself to . Pt. reports he had been sober, but that 3 weeks ago he started drinking 2.5 liters of vodka and 8 large IPA beers daily. Pt. reports he wanted to end his life because he feels like a failure after his marriage ended and he is tired of feeling sorry for himself. Pt. denies current SI/HI, A/V hallucinations. However, pt. reports that had been experiencing voices that make him laugh as well as people sitting next to him when theres no one there. Assessment What has happened this shift: Pt up in group room watching TV and interacting with other pts till bedtime. He is pleasant and cooperative with care. Says he is going to discharge to his parents home soon and is looking forward to getting a job. SS note confirms that parents have agreed for pt to stay with them at discharge. Encouraged to seek follow-up mental health care. Pt verbalizes understanding of importance of follow-up care. S/I, H/I: Denies A/VH: Denies. Sleep: asleep at this time ADL's: Independent Group attendance: NA Were meds taken: Yes, Any med S/E: No Mental Status Exam Appearance: Medium height husky middle aged man wearing personal attire. He is clean, neat, and has some horne growth. Wearing eye glasses. Eye contact: Good eye contact Behavior: Cooperative, social Speech: Clear, soft Mood: "good" Affect: Congruent with mood. Thought process: Linear Thought Content: Discharge Cognition: A&O X4 Insight: Fair Judgment: Fair Interventions PRN's used: Nicotine lozenges Therapeutic interventions: Maintained a safe and supportive environment, ensured contract for safety, provided clear and simple instructions, therapeutic communication, and maintained Q 15min safety checks. Restraints/seclusion/emergency medication: N/A Justification of Continued Inpatient Treatment: Pt. requires interruption of current crisis, medication adjustments, and a safe and supportive environment.
[2022-03-22] MEDS: venlafaxine 37.5mg tablet PO SCH ×3 (07:21→17:17)
[2022-03-22] MEDS: ferrous sulfate 325mg tablet PO SCH ×3 (07:21→17:17)
[2022-03-22] MEDS: pantoprazole 40mg Tablet.DR PO SCH (07:21)
[2022-03-22] MEDS: folic acid 1mg tablet PO SCH (07:22)
[2022-03-22] MEDS: buPROPion 75mg tablet PO SCH ×3 (07:22→17:17)
[2022-03-22] MEDS: thiamine 100mg tablet PO SCH (07:22)
[2022-03-22] MEDS: LORazepam 0.5 MG tablet PO SCH ×3 (07:22→17:17)
[2022-03-22] MEDS: nicotine 21mg patch - 24 hr TD SCH (07:25)
[2022-03-22 08:00] VITALS: BP 121/81
[2022-03-22] MEDS: NICOTINE POLACRILEX 2 MG LOZENGE BC PRN ×5 (08:50→19:17)
--- NOTE | 2022-03-22 09:09 | NUR ---
Pt. attended both groups today. We talked about the functioning of the Limbic System and how it relates to anxiety, depression and anger. The second group was an Art Expression group called Feelings Opposites where they expressed opposite emotions and did a dialogue with these emotions. Pt. engaged well in both groups. He shows insight into her mental illness. He was alert and oriented X 4. Her thought content and thought process was WNL. His demeanor was calm, compliant and pleasant to work with. Anuja Quispe LCSW
--- NOTE | 2022-03-22 17:44 | NUR ---
Nursing Progress Note Legal hold: Voluntary Client on involuntary status for DTS Report received from RN with use of SBAR Why are they here: 5150 states, You attempted suicide by overdosing on alcohol, attempting to hang yourself, and obtained a gun from a friend. Pt. states, I tried to drink myself to . Pt. reports he had been sober, but that 3 weeks ago he started drinking 2.5 liters of vodka and 8 large IPA beers daily. Pt. reports he wanted to end his life because he feels like a failure after his marriage ended and he is tired of feeling sorry for himself. Pt. denies current SI/HI, A/V hallucinations. However, pt. reports that had been experiencing voices that make him laugh as well as people sitting next to him when theres no one there. Assessment What has happened this shift: Received Pt in bed sleeping w/o distress. Pt woke and was cooperative with vitals. Pt took scheduled meds throughout the day w/o issue and requested nicotine lozenges as well. Pt cooperative with AM assessments and ate meals well in community room with others. Pt attended group and socialized with others. Pt in euthymic mood with good range of affect. Pt visible in community room watching TV and talking with others throughout the day. S/I, H/I: Denies A/VH: Denies Sleep: None this shift ADL's: Independent Group attendance: Yes Were meds taken: Yes Any med S/E: None observed or reported Mental Status Exam Appearance: Casual, groomed in own clothes Eye contact: Good Behavior: Cooperative, social Speech: Clear, soft Mood: OK Affect: Congruent with mood Thought process: Linear Thought Content: Discharge plan and meeting needs Cognition: A&O X4 Insight: Fair Judgment: Fair Interventions PRN's used: Nicotine lozenges Therapeutic interventions: Maintained a safe and supportive environment, ensured contract for safety, provided clear and simple instructions, therapeutic communication, and maintained Q 15min safety checks. Restraints/seclusion/emergency medication: N/A Justification of Continued Inpatient Treatment: Pt. requires interruption of current crisis, medication adjustments, and a safe and supportive environment.
[2022-03-22 20:00] VITALS: BP 107/60
[2022-03-22] MEDS: traZODone 50mg tablet PO SCH ×2 (20:47→21:43)
--- NOTE | 2022-03-23 02:35 | NUR ---
Nursing Progress Note Legal hold: Voluntary Client on involuntary status for DTS Report received from RN with use of SBAR Why are they here: 5150 states, You attempted suicide by overdosing on alcohol, attempting to hang yourself, and obtained a gun from a friend. Pt. states, I tried to drink myself to . Pt. reports he had been sober, but that 3 weeks ago he started drinking 2.5 liters of vodka and 8 large IPA beers daily. Pt. reports he wanted to end his life because he feels like a failure after his marriage ended and he is tired of feeling sorry for himself. Pt. denies current SI/HI, A/V hallucinations. However, pt. reports that had been experiencing voices that make him laugh as well as people sitting next to him when theres no one there. Assessment What has happened this shift: Pt was in the group room at change of shift having dinner. Pt spent evening socializing with peers and watching tv. Pt also spent time speaking with his family on the telephone. Pt is in a pleasant mood and remains in group room for snacks. pt requested to take HS meds closer to 2200 because he states he wakes up too early in the morning. Pt too HS meds and went to bed. S/I, H/I: Denies A/VH: Denies Sleep: see sleep hours ADL's: Independent Group attendance: Yes Were meds taken: Yes Any med S/E: None observed or reported Mental Status Exam Appearance: Casual, groomed in own clothes Eye contact: Good Behavior: Cooperative, social Speech: Clear, soft Mood: euthymic Affect: bright Thought process: Linear Thought Content: Discharge plan and meeting needs Cognition: A&O X4 Insight: Fair Judgment: Fair Interventions PRN's used: Nicotine lozenges Therapeutic interventions: Maintained a safe and supportive environment, ensured contract for safety, provided clear and simple instructions, therapeutic communication, and maintained Q 15min safety checks. Restraints/seclusion/emergency medication: N/A Justification of Continued Inpatient Treatment: Pt. requires interruption of current crisis, medication adjustments, and a safe and supportive environment.
[2022-03-23 07:38] VITALS: BP 111/72
[2022-03-23] MEDS: LORazepam 0.5 MG tablet PO SCH ×3 (08:18→17:12)
[2022-03-23] MEDS: folic acid 1mg tablet PO SCH (08:18)
[2022-03-23] MEDS: thiamine 100mg tablet PO SCH (08:18)
[2022-03-23] MEDS: buPROPion 75mg tablet PO SCH ×3 (08:18→17:12)
[2022-03-23] MEDS: ferrous sulfate 325mg tablet PO SCH ×3 (08:18→17:12)
[2022-03-23] MEDS: venlafaxine 37.5mg tablet PO SCH ×3 (08:19→17:12)
[2022-03-23] MEDS: pantoprazole 40mg Tablet.DR PO SCH (08:19)
[2022-03-23] MEDS: nicotine 21mg patch - 24 hr TD SCH (08:19)
--- NOTE | 2022-03-23 09:56 | NUR ---
Pt. attended group today. Today we talked about the different types of unhealthy thinking and how to identify each one. Pt. also participated in a visualization technique at the end of the session. Pt. engaged in the group minimally. He was more quiet today then he usually has been in groups. He did share some of his thoughts around where he tends to get hung up on with his own negative cognitions. He displayed insight into his mental illness. His mood appears depressive with a restricted affect. His demeanor was calm, compliant and pleasant to work with. Anuja Quispe, MANAGER COMMUNITY DEVELOPMENT
[2022-03-23] MEDS: NICOTINE POLACRILEX 2 MG LOZENGE BC PRN ×2 (10:28→14:28)
--- NOTE | 2022-03-23 16:59 | NUR ---
Nursing Progress Note Legal hold: Voluntary Client on involuntary status for DTS Why are they here: 5150 states, you attempted suicide by overdosing on alcohol, attempting to hang yourself, and obtained a gun from a friend. Assessment What has happened this shift: Pt has been up the entire shift. He spent most of the day in the dayroom coloring and socializing with peers. Pt is polite to staff and peers. He is cooperative with treatment. Medications administered provided education as needed and monitored efficacy. Justification of Continued Inpatient Treatment: Pt. requires interruption of current crisis, medication adjustments, and a safe and supportive environment.
[2022-03-23 19:39] VITALS: BP 121/80
[2022-03-23] MEDS: traZODone 50mg tablet PO SCH (21:48)
--- NOTE | 2022-03-23 23:44 | NUR ---
Nursing Progress Note Legal hold: Voluntary Client on involuntary status for DTS Report received from RN with use of SBAR Why are they here: 5150 states, You attempted suicide by overdosing on alcohol, attempting to hang yourself, and obtained a gun from a friend. Pt. states, I tried to drink myself to . Pt. reports he had been sober, but that 3 weeks ago he started drinking 2.5 liters of vodka and 8 large IPA beers daily. Pt. reports he wanted to end his life because he feels like a failure after his marriage ended and he is tired of feeling sorry for himself. Pt. denies current SI/HI, A/V hallucinations. However, pt. reports that had been experiencing voices that make him laugh as well as people sitting next to him when theres no one there. Assessment What has happened this shift: Pt was in the group room at change of shift having dinner. Pt reminded this nurse that he would like to have his HS meds closer to 2200 and requested nicotine lozenge. Pt state he is feeling better and doing well. Pt took call from his mother gerardo, had snack then took HS meds and went to bed. S/I, H/I: Denies A/VH: Denies Sleep: see sleep hours ADL's: Independent Group attendance: Yes Were meds taken: Yes Any med S/E: None observed or reported Mental Status Exam Appearance: Casual, groomed in own clothes Eye contact: Good Behavior: Cooperative, social Speech: Clear, soft Mood: euthymic Affect: bright Thought process: Linear Thought Content: Discharge plan and meeting needs Cognition: A&O X4 Insight: Fair Judgment: Fair Interventions PRN's used: Nicotine lozenges Therapeutic interventions: Maintained a safe and supportive environment, ensured contract for safety, provided clear and simple instructions, therapeutic communication, and maintained Q 15min safety checks. Restraints/seclusion/emergency medication: N/A Justification of Continued Inpatient Treatment: Pt. requires interruption of current crisis, medication adjustments, and a safe and supportive environment.
--- NOTE | 2022-03-24 07:18 | NUR ---
Reassessment; Pt continues on Regular diet w/ mostly 100% intake of meals and participates in some snacks per documentation, overall meeting est nutrient needs at this time. [facility] 03/22 w/ PRN bowel care available. No nutrition intervention implemented at this time, will continue to monitor. Recs: 1. Continue Regular diet as tolerated 2. Routine thiamine, folic acid for EtOH hx 3. Bowel care per rx 4. Scaled wt this admit Addendum: 03/24/22 at [address] Amended: Links added.
[2022-03-24 07:30] VITALS: BP 114/73
[2022-03-24] MEDS: venlafaxine 37.5mg tablet PO SCH ×3 (07:43→17:27)
[2022-03-24] MEDS: buPROPion 75mg tablet PO SCH ×3 (07:44→17:27)
[2022-03-24] MEDS: pantoprazole 40mg Tablet.DR PO SCH (08:05)
[2022-03-24] MEDS: ferrous sulfate 325mg tablet PO SCH ×3 (08:05→17:27)
[2022-03-24] MEDS: folic acid 1mg tablet PO SCH (08:05)
[2022-03-24] MEDS: LORazepam 0.5 MG tablet PO SCH ×2 (08:05→12:32)
[2022-03-24] MEDS: thiamine 100mg tablet PO SCH (08:05)
[2022-03-24] MEDS: nicotine 21mg patch - 24 hr TD SCH (08:07)
[2022-03-24] MEDS: NICOTINE POLACRILEX 2 MG LOZENGE BC PRN ×5 (08:34→19:39)
--- NOTE | 2022-03-24 18:00 | NUR ---
Nursing Progress Note: Legal hold: Voluntary Client on involuntary status for DTS Report received from ANGELA Taylor with use of SBAR Why are they here: 5150 states, You attempted suicide by overdosing on alcohol, attempting to hang yourself, and obtained a gun from a friend. Pt. states, I tried to drink myself to . Pt. reports he had been sober, but that 3 weeks ago he started drinking 2.5 liters of vodka and 8 large IPA beers daily. Pt. reports he wanted to end his life because he feels like a failure after his marriage ended and he is tired of feeling sorry for himself. Pt. denies current SI/HI, A/V hallucinations. However, pt. reports that had been experiencing voices that make him laugh as well as people sitting next to him when theres no one there. Assessment What has happened this shift: RN received pt. asleep in bed at start of shift. Pt. awoke for breakfast and took medications. 1:1 done at bedside, pt. states, I have a few more days here, I really want to go but I understand. Pt. reports that some friends of his have a studio apartment between [facility] and that he wants to go live there. Pt. reports he does not want to go to rehab, even though he thinks its a good idea, when asked about finding a sponsor, pt. laughed nervously and walked away. Pt. acknowledges that he has a drinking problem and that he stops taking his medications when he drinks and becomes suicidal. Pt. showered. S/I, H/I: Denies. A/VH: Denies. Sleep: Pt slept 6.50 hours last night per NOC shift. Pt. napped approx. 2 hrs on day shift. ADL's: Independent Group attendance: Yes Were meds taken: Yes Any med S/E: Denies. None observed. Mental Status Exam Appearance: Casual, in personal attire. Wearing eye glasses. Clean, neat. Eye contact: WNL Behavior: Cooperative, socially withdrawn, resting in his room. Speech: WNL Mood: Depressed and anxious Affect: Congruent with mood. Thought process: Linear Thought Content: Concern about relapsing. Cognition: A&O X4 Insight: Fair Judgment: Fair Interventions PRN's used: Nicotine lozenges Therapeutic interventions: Maintained a safe and supportive environment, ensured contract for safety, provided clear and simple instructions, completed CIWA assessment, and maintained Q 15min safety checks. Restraints/seclusion/emergency medication: N/A Justification of Continued Inpatient Treatment: Pt. requires interruption of current crisis, medication adjustments, and a safe and supportive environment.
[2022-03-24 20:07] VITALS: BP 115/72
[2022-03-24] MEDS: traZODone 50mg tablet PO SCH (22:02)
--- NOTE | 2022-03-25 03:50 | NUR ---
Nursing Progress Note: Legal hold: Voluntary Client on involuntary status for DTS Report received from RN with use of SBAR Why are they here: 5150 states, You attempted suicide by overdosing on alcohol, attempting to hang yourself, and obtained a gun from a friend. Pt. states, I tried to drink myself to . Pt. reports he had been sober, but that 3 weeks ago he started drinking 2.5 liters of vodka and 8 large IPA beers daily. Pt. reports he wanted to end his life because he feels like a failure after his marriage ended and he is tired of feeling sorry for himself. Pt. denies current SI/HI, A/V hallucinations. However, pt. reports that had been experiencing voices that make him laugh as well as people sitting next to him when theres no one there. Assessment What has happened this shift: Patient was in room at shift change. The patient was very polite and appropriate upon introduction. The patient denies S/I H/I. 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 He mentioned that he was going to get in trouble and his license would be on a probation period so he's taking a 2 year hiatus from nursing. The patient reports wanting to leave tomorrow or the next day but knows the Dr is increasing his Wellbutrin and wont want him to leave until Monday. The patient reports knowing that he needs to take his medication regularly and not drink. He states to that he would go live with his mom when he gets D/C. The patient asked for a nicotine lozenge and requested to have his Trazodone at 22:00. The pt took Trazodone at 22:00 w/o complications and went to [facility] shortly after. S/I, H/I: Denies. A/VH: Denies. Sleep: See sleep hours ADL's: Independent Group attendance: No group in the evenings Were meds taken: Yes Any med S/E: Denies. None observed. Mental Status Exam Appearance: Casual, in personal attire. Wearing eye glasses. Clean, neat. Eye contact: WNL Behavior: Cooperative, socially withdrawn, resting in his room. Speech: WNL Mood: Depressed and anxious Affect: Congruent with mood. Thought process: Linear Thought Content: Concern about going home Cognition: A&O X4 Insight: Fair Judgment: Fair Interventions PRN's used: Nicotine lozenges Therapeutic interventions: Maintained a safe and supportive environment, ensured contract for safety, provided clear and simple instructions, completed CIWA assessment, and maintained Q 15min safety checks. Restraints/seclusion/emergency medication: N/A Justification of Continued Inpatient Treatment: Pt. requires interruption of current crisis, medication adjustments, and a safe and supportive environment.
[2022-03-25] MEDS: LORazepam 0.5 MG tablet PO SCH ×2 (07:36→12:54)
[2022-03-25] MEDS: ferrous sulfate 325mg tablet PO SCH ×2 (07:36→12:54)
[2022-03-25] MEDS: pantoprazole 40mg Tablet.DR PO SCH (07:36)
[2022-03-25] MEDS: thiamine 100mg tablet PO SCH (07:36)
[2022-03-25] MEDS: folic acid 1mg tablet PO SCH (07:36)
[2022-03-25] MEDS: buPROPion 75mg tablet PO SCH ×2 (07:36→12:54)
[2022-03-25] MEDS: nicotine 21mg patch - 24 hr TD SCH (07:39)
[2022-03-25] MEDS ORDERED: venlafaxine 25mg tablet PO ONE (07:45)
[2022-03-25 08:00] VITALS: BP 119/73
[2022-03-25] MEDS: NICOTINE POLACRILEX 2 MG LOZENGE BC PRN ×2 (11:30→13:38)
[2022-03-25] MEDS ORDERED: venlafaxine 37.5mg tablet PO SCH (12:00)
[2022-03-25] MEDS ORDERED: venlafaxine 25mg tablet PO SCH (12:56)
[2022-03-25] MEDS ORDERED: TRAZ-256 PO (13:12)
[2022-03-25] MEDS ORDERED: NICO-687 TD (13:12)
[2022-03-25] MEDS ORDERED: VENL100T4 PO (13:12)
[2022-03-25] MEDS ORDERED: FER325T PO (13:12)
[2022-03-25] MEDS ORDERED: PANT40TA54 PO (13:12)
[2022-03-25] MEDS ORDERED: BUPR-297 PO (13:12)
--- NOTE | 2022-03-25 15:18 | NUR ---
DISCHARGE NOTE: Pt. discharged to parents home, picked up by mother in car. RN went over discharge paper work with pt., pt. verbalized understanding and signed all paperwork including firearms restriction, f/u plan and medications, and crisis phone numbers including 911. Pt. discharged with all belongings and valuables. Pt. denies SI/HI, A/V hallucinations. Pt. is A&Ox4 and in no apparent distress.
--- NOTE | 2022-03-26 14:48 | NUR ---
Called in prescriptions to [facility] on [address] per patient's request
== END 2022-03-25 15:18 | disposition home or self-care (01) | DRG 885 ==
LOC: ADULT MH 20:45
PROVIDERS: ADMIT Psychiatry & Neurology Psychiatry; ATTEND Psychiatry & Neurology Psychiatry
DX: F33.2 Major depressive disorder, recurrent severe without psychotic features (principal); T43.212A Poisoning by selective serotonin and norepinephrine reuptake inhibitors, intentional self-harm, initial encounter; F10.20 Alcohol dependence, uncomplicated; F12.90 Cannabis use, unspecified, uncomplicated; K21.9 Gastro-esophageal reflux disease without esophagitis; D50.9 Iron deficiency anemia, unspecified; F17.210 Nicotine dependence, cigarettes, uncomplicated; F41.9 Anxiety disorder, unspecified; R73.9 Hyperglycemia, unspecified; Y92.89 Other specified places as the place of occurrence of the external cause
CPT/HCPCS: 36415; 80053; 80061; 82607; 82728; 83540; 83550; 85025; 87081

== ENCOUNTER 2022-10-06 08:53 | Emergency (ER) | payer SELFPAY ==
[~2022-10-06] VITALS: Ht 185.4 cm; Wt 111.2 kg
[~2022-10-06 08:53] MED LIST changes: +BUPR-122 PO; +FER325T PO; -GABA-534 PO; +LURA40TA2 PO; +NALT50TA PO; +NICO-687 TD; +PANT40TA54 PO; +TRAZ-251 PO
--- NOTE | 2022-10-06 09:45 | NUR ---
chemical lab technician Debbie updated on pt status, placed IV to LAC and 1 Liter NS started and informed MD Etienne of pt status and currently with fluid bolus running.
--- NOTE | 2022-10-06 09:52 | NUR ---
PT'S BROTHER; BRENDAN ALVESRAFI; CONTACT #
[2022-10-06] MEDS ORDERED: ringers solution, lacted 1,000 ML IV ONE (10:00)
[2022-10-06 10:14] LABS: BASOPHILS % (AUTO) 0.7 % (0-1); EOSINOPHILS % (AUTO) 0.2 % (0-6); HEMATOCRIT 44.1 % (42.0-52.0); LYMPHOCYTES # (AUTO) 1.3 X10'3 (1.1-4.8); LYMPHOCYTES % (AUTO) 21.1 % (21-51); MEAN CORPUSCULAR HEMOGLOBIN 30.6 PG (27.0-31.0); MEAN CORPUSCULAR HGB CONC 34.1 g/dL (33.0-36.5); MEAN CORPUSCULAR VOLUME 89.9 FL (78-98); MEAN PLATELET VOLUME 7.7 FL (7.4-10.4); MONOCYTES # (AUTO) 0.7 X10'3 (0-0.9); MONOCYTES % (AUTO) 10.8 % (2-12); NEUTROPHILS # (AUTO) 4.2 X10'3 (1.8-7.7); NEUTROPHILS % (AUTO) 67.2 % (42-75); PLATELET COUNT 63 X10'3 (140-440); RED BLOOD COUNT 4.91 X10'6 (4.70-6.10); RED CELL DISTRIBUTION WIDTH 16.4 % (11.5-14.5); WHITE BLOOD COUNT 6.3 X10'3 (4.5-11.0)
[2022-10-06] MEDS ORDERED: NO HOME MEDS (10:39)
[2022-10-06] MEDS ORDERED: LORazepam 2 mg/ml vial IV ONE ×3 (10:40→20:15)
[2022-10-06] MEDS ORDERED: ondansetron/PF 4mg/2ml inj IV ONE (10:40)
[2022-10-06 11:26] LABS: ALANINE AMINOTRANSFERASE 128 U/L (12-78); ALBUMIN 3.3 G/DL (3.4-5.0); ALKALINE PHOSPHATASE 165 IU/L (46-116); ASPARTATE AMINO TRANSFERASE 358 U/L (10-37); BILIRUBIN,TOTAL 1.4 MG/DL (0.1-1.0); BLOOD UREA NITROGEN 14 MG/DL (7-18); BUN/CREATININE RATIO 18.2 (5.4-32.0); CALCIUM 8.4 MG/DL (8.5-10.1); CHLORIDE 89 MMOL/L (99-107); CREATININE 0.77 MG/DL (0.60-1.10); ETHANOL 0.274 GM/DL (0.0-0.010); GLUCOSE 169 MG/DL (70-104); MAGNESIUM 1.8 MG/DL (1.5-2.4); TOTAL CARBON DIOXIDE 25.8 MMOL/L (24-32); TOTAL PROTEIN 6.7 G/DL (6.4-8.2); eGFR > 90 ML/MIN
[2022-10-06 11:28] LABS: ANION GAP 15 (8-16); SODIUM 130 MMOL/L (135-145)
[2022-10-06 11:52] LABS: URINE AMPHETAMINE SCREEN NEGATIVE (Neg); URINE BARBITUATE SCREEN NEGATIVE (Neg); URINE BENZODIAZEPINES SCREEN NEGATIVE (Neg); URINE CANNABINOID SCREEN NEGATIVE (Neg); URINE COCAINE SCREEN NEGATIVE (Neg); URINE METHADONE SCREEN NEGATIVE (Neg); URINE OPIATE SCREEN NEGATIVE (Neg); URINE PHENCYCLIDINE SCREEN NEGATIVE (Neg)
--- NOTE | 2022-10-06 12:55 | NUR ---
Pt is unsure of medications and doses. Pharmacy called where pt stateds he gets his meds. There have never been meds filled there by pt per pharmacy.
[2022-10-06] MEDS ORDERED: diphenhydrAMINE 50 mg/ml inj IV ONE (20:15)
[2022-10-06] MEDS ORDERED: proCHLORperazine 10 MG/2 ml inj IM ONE (20:15)
--- NOTE | 2022-10-06 22:28 | NUR ---
assumed pt care.
--- NOTE | 2022-10-06 23:02 | NUR ---
SEIZURE PADS PLACED ON BED PER ETOH PROTOCOL.
--- NOTE | 2022-10-06 23:15 | NUR ---
packet faxed to [facility]
--- NOTE | 2022-10-07 00:12 | NUR ---
WHEN ASKED ABOUT MEDICATIONS TAKEN AT HOME, PT STATED "I DO NOT TAKE ANYTHING." PT CONTINUED TO REPORT THAT THEY USED TO BE ON PSYCH MEDICATIONS THE LAST TIME THEY WERE HERE ABOUT SIX MONTHS AGO. PT IS UNABLE TO RECALL THE NAMES OF THE MEDICATIONS HE WAS ON THEN.
--- NOTE | 2022-10-07 02:24 | NUR ---
Retail Marketing Executive agrees with Mary Anne Cerrato, JOSE assessment.
--- NOTE | 2022-10-07 06:43 | NUR ---
Received pt. sleeping at the beginning of the shift, rise and fall of chest noted. Seizure precautions pads are in place on bed rails r/t ETOH.
[2022-10-07] MEDS ORDERED: ondansetron 4mg rapidly disintigrating tab PO ONE ×2 (07:40→19:10)
[2022-10-07] MEDS ORDERED: chlordiazePOXIDE 25mg capsule PO ONE ×2 (07:40→19:10)
--- NOTE | 2022-10-07 07:46 | NUR ---
Pt. c/o nausea, sweating, V/MCKEON, and tremors noted in bilateral upper extremities. Pt's V/S are WNL. He reports he usually experiences alcohol withdrawal s/s and has been drinking to end his life. This was reported to Dr. Etienne and received an order for Librium 100mg and Zofran 4mg, will continue to monitor pt. closely.
--- NOTE | 2022-10-07 08:00 | NUR ---
Pt. was compliant with MH assessment completed at bedside. He is A&O X4 and reports he has been drinking for the past three weeks in an attempt to end his life. Pt. reports ongoing S/I with a plan to continue drinking. He also reports V/MCKEON of, "Floaters and faces," at intervals. Pt. denies any A/MCKEON and no delusional statements were made. Pt. endorses a history of S/A with an attempt to shoot himself and a couple of hanging attempts. He has been non-compliant with ordered medications while out of the hospital.
--- NOTE | 2022-10-07 08:30 | NUR ---
Pt. is sitting up in bed eating breakfast at this time, he appears to be eating well.
--- NOTE | 2022-10-07 10:00 | NUR ---
Pt. in bed talking with [facility] at this time.
--- NOTE | 2022-10-07 10:33 | NUR ---
Pt. is sleeping in bed with HOB elevated at this time, rr are even and unlabored.
--- NOTE | 2022-10-07 11:33 | NUR ---
Break RN covering. Patient resting quietly in bed.
--- NOTE | 2022-10-07 12:23 | NUR ---
Pt. continues to sleep at this time, HOB is elevated, no s/s of distress noted.
--- NOTE | 2022-10-07 12:42 | NUR ---
This clinical writer flushed pt's IV present in his left antecubital area. Both IV lines are patent and no s/s of erythema or infiltration present at pt's IV site.
--- NOTE | 2022-10-07 14:17 | NUR ---
Pt. appears to be sleeping at this time, laying on his left side, rise and fall of chest noted.
--- NOTE | 2022-10-07 16:30 | NUR ---
Pt. continues to sleep at this time, laying with HOB elevated, he appears to be resting comfortably.
--- NOTE | 2022-10-07 18:06 | NUR ---
Pt. continues to sleep at this time, rr are even and unlabored.
--- NOTE | 2022-10-07 19:32 | NUR ---
pt c/o of withdraw symptoms, order recived for medications and medications given, no distress noted at this time, breathing even and unlabored.
--- NOTE | 2022-10-07 20:44 | NUR ---
2030 pt sleeping on right side, breathing even and unlabored, seizue padds in place.
[2022-10-08] MEDS ORDERED: chlordiazePOXIDE 25mg capsule PO ONE (00:25)
--- NOTE | 2022-10-08 00:27 | NUR ---
pt c/o withdraw symptoms, Dr Bal came to bedside and examed pt, verbal order for Librium 100mg po x 1 given
--- NOTE | 2022-10-08 00:43 | NUR ---
pt given Librium 100mg po, pt AOX4, pt with tremor noted in both hands and arms, sking warm and dry.
[2022-10-08] MEDS ORDERED: ondansetron/PF 4mg/2ml inj IV ONE (02:25)
--- NOTE | 2022-10-08 02:38 | NUR ---
0215 pt with green bile emsis, Dr Bal notified, order for zofran recived.
[2022-10-08 23:28] LABS: COLOR,URINE YELLOW (Yellow); GLUCOSE, URINE NEGATIVE (Neg); KETONES,URINE NEGATIVE (Neg); LEUKOCYTE ESTERASE ,URINE NEGATIVE (Neg); NITRITES, URINE NEGATIVE (Neg); OCCULT BLOOD,URINE SMALL (Neg); PH,URINE 7.5 (4.8-8.0); PROTEIN,URINE NEGATIVE (Neg); UROBILINOGEN,URINE >=8.0 E.U/dL (0.2-1.0)
[2022-10-08 23:32] LABS: CLARITY,URINE Slightly Cloudy (Clear); UA COLLECTION TYPE VOIDED
[2022-10-08 23:33] LABS: BACTERIA,URINE FEW /HPF (Neg); SQUAMOUS EPITHELIAL CELL,UR NONE SEEN /LPF (FEW); WBC,URINE 0-4 /HPF (0-4)
[2022-10-09] MEDS ORDERED: traZODone 50mg tablet PO ONE (03:10)
--- NOTE | 2022-10-09 03:39 | NUR ---
Rosana wilkinsgustavo in [place] - 10/09/22 at 0339 by MENDOZA Patient is sleeping quietly. She has repositioned onto her right side.
[2022-10-09 06:12] VITALS: BP 110/65
--- NOTE | 2022-10-09 14:56 | NUR ---
Patient hesitant to be tranfered to a facility in another city. advised of need to go and recieve treatment.
== END 2022-10-09 15:03 ==
LOC: ER 08:53
DX: R45.851 Suicidal ideations (principal); Z20.822 Contact with and (suspected) exposure to COVID-19; F33.2 Major depressive disorder, recurrent severe without psychotic features; F10.10 Alcohol abuse, uncomplicated; Y90.9 Presence of alcohol in blood, level not specified; R74.8 Abnormal levels of other serum enzymes; F31.9 Bipolar disorder, unspecified; F12.10 Cannabis abuse, uncomplicated; Z79.899 Other long term (current) drug therapy
CPT/HCPCS: 36415; 80053; 80305; 80320; 81001; 83735; 85025; 87811; 93005; 96361; 96372; 96374; 96375; 96376; 99285; J0780; J1200; J2060; J2405; J7030; J7120

== ENCOUNTER 2022-12-23 15:05 | Emergency (ER) | payer MEDICAID ==
[~2022-12-23] VITALS: Ht 185.4 cm; Wt 118.2 kg
[~2022-12-23 15:05] MED LIST changes: -BUPR-122 PO; -FER325T PO; -LURA40TA2 PO; -NALT50TA PO; -NICO-687 TD; +NO HOME MEDS; -PANT40TA54 PO; -TRAZ-251 PO
[2022-12-23 16:12] LABS: BASOPHILS % (AUTO) 0.5 % (0-1); EOSINOPHILS # (AUTO) 0.1 X10'3 (0-0.9); EOSINOPHILS % (AUTO) 0.5 % (0-6); HEMOGLOBIN 15.4 g/dl (14.0-17.9); LYMPHOCYTES # (AUTO) 2.8 X10'3 (1.1-4.8); LYMPHOCYTES % (AUTO) 28.3 % (21-51); MEAN CORPUSCULAR HEMOGLOBIN 29.6 PG (27.0-31.0); MEAN CORPUSCULAR HGB CONC 32.8 g/dL (33.0-36.5); MEAN CORPUSCULAR VOLUME 90.3 FL (78-98); MEAN PLATELET VOLUME 6.9 FL (7.4-10.4); MONOCYTES # (AUTO) 0.7 X10'3 (0-0.9); MONOCYTES % (AUTO) 6.7 % (2-12); NEUTROPHILS # (AUTO) 6.3 X10'3 (1.8-7.7); PLATELET COUNT 446 X10'3 (140-440); RED BLOOD COUNT 5.21 X10'6 (4.70-6.10); RED CELL DISTRIBUTION WIDTH 15.4 % (11.5-14.5); WHITE BLOOD COUNT 9.8 X10'3 (4.5-11.0)
[2022-12-23 16:31] LABS: ALANINE AMINOTRANSFERASE 31 U/L (12-78); ALBUMIN 4.3 G/DL (3.4-5.0); ALKALINE PHOSPHATASE 135 IU/L (46-116); ANION GAP 17 (8-16); ASPARTATE AMINO TRANSFERASE 70 U/L (10-37); BILIRUBIN,TOTAL 0.5 MG/DL (0.1-1.0); BLOOD UREA NITROGEN 15 MG/DL (7-18); BUN/CREATININE RATIO 18.1 (5.4-32.0); CHLORIDE 97 MMOL/L (99-107); CREATININE 0.83 MG/DL (0.60-1.10); ETHANOL 0.307 GM/DL (0.0-0.010); GLUCOSE 109 MG/DL (70-104); POTASSIUM 4.4 MMOL/L (3.5-5.1); SODIUM 138 MMOL/L (135-145); TOTAL CARBON DIOXIDE 24.4 MMOL/L (24-32); TOTAL PROTEIN 8.7 G/DL (6.4-8.2); eGFR > 90 ML/MIN
[2022-12-23 17:11] LABS: URINE AMPHETAMINE SCREEN NEGATIVE (Neg); URINE BARBITUATE SCREEN NEGATIVE (Neg); URINE BENZODIAZEPINES SCREEN NEGATIVE (Neg); URINE CANNABINOID SCREEN NEGATIVE (Neg); URINE COCAINE SCREEN NEGATIVE (Neg); URINE METHADONE SCREEN NEGATIVE (Neg); URINE OPIATE SCREEN NEGATIVE (Neg); URINE PHENCYCLIDINE SCREEN NEGATIVE (Neg)
[2022-12-23] MEDS ORDERED: ondansetron 4mg rapidly disintigrating tab PO ONE (22:00)
--- NOTE | 2022-12-23 22:43 | NUR ---
Patient brought to ED Overflow with no report.
--- NOTE | 2022-12-23 23:08 | NUR ---
Patient tells this chief writer he has S/I, he states " I attempted to drink myself to ." Patient states he has a Bipolar 2 history and has not taken any medications for months. Patient states he has nausea and vomiting. He was given Zofran ODT with some relief. The patient is changed into green scrubs. He is cooperative.
--- NOTE | 2022-12-24 00:32 | NUR ---
Patient up to bathroom to void. Then back to void. In view from nurses station.
--- NOTE | 2022-12-24 00:38 | NUR ---
Patilent is restless, up and down from bed. Patient believes that he is starting to withdrawl from alcohol. This fiction and nonfiction prose writer will consult with .
[2022-12-24] MEDS ORDERED: LORazepam 1 MG tablet PO ONE ×2 (00:45→17:50)
[2022-12-24] MEDS ORDERED: chlordiazePOXIDE 25mg capsule PO ONE ×3 (00:45→13:10)
--- NOTE | 2022-12-24 02:39 | NUR ---
Patient is sleeping peacefully on his left side. No distress noted. Good color and regular resp.
--- NOTE | 2022-12-24 04:36 | NUR ---
Patient continues to sleep quietly. No distress.
[2022-12-24] MEDS ORDERED: LORazepam 2 mg/ml vial IM ONE (05:45)
--- NOTE | 2022-12-24 06:30 | NUR ---
Received pt. awake laying in bed at the beginning of the shift exhibiting s/s of alcohol withdrawal AEB shaking, sweating, and c/o anxiety. Per report, pt. has a history of withdrawals. Pt. was administered 2mg of IM Ativan in his left detoid which he tolerated well along with oral Librium per orders. Will continue to monitor pt. closely.
--- NOTE | 2022-12-24 06:59 | NUR ---
Patient was given additional Librium and Ativan per Dr. Etienne.
--- NOTE | 2022-12-24 08:45 | NUR ---
Pt. is sleeping at this time, rr are even and unlabored.
--- NOTE | 2022-12-24 10:31 | NUR ---
Pt. continues to sleep at this time, rise and fall of chest noted.
[2022-12-24 10:51] LABS: CLARITY,URINE CLEAR (Clear); COLOR,URINE YELLOW (Yellow); GLUCOSE, URINE NEGATIVE (Neg); KETONES,URINE TRACE mg/dl (Neg); LEUKOCYTE ESTERASE ,URINE NEGATIVE (Neg); NITRITES, URINE NEGATIVE (Neg); OCCULT BLOOD,URINE SMALL (Neg); PROTEIN,URINE TRACE mg/dl (Neg); UROBILINOGEN,URINE 0.2 E.U/dL (0.2-1.0)
[2022-12-24 11:03] LABS: UA COLLECTION TYPE VOIDED
[2022-12-24 11:04] LABS: BACTERIA,URINE NONE SEEN /HPF (Neg); MUCUS STRANDS FEW /LPF (Neg); SQUAMOUS EPITHELIAL CELL,UR FEW /LPF (FEW); WBC,URINE 0-4 /HPF (0-4)
[2022-12-24] MEDS ORDERED: PANT40TA54 PO (11:39)
[2022-12-24] MEDS ORDERED: VENL25TA48 PO (11:39)
[2022-12-24] MEDS ORDERED: LURA80TA2 PO (11:39)
[2022-12-24] MEDS ORDERED: BUPR100T13 PO (11:39)
[2022-12-24] MEDS ORDERED: TRAZ-256 PO (11:39)
--- NOTE | 2022-12-24 12:00 | NUR ---
1:1 was completed at bedside, pt. reports he is feeling better and is eating well and appears to be consuming adequate fluids. No s/s of tremors or increased anxiety were noted. Pt. reports ongoing S/I with a plan to continue drinking if he leaves in an attempt to kill himself. However, he is able to contract for safety while on the unit. Pt. also endorses intermittent V/MCKEON of "Shadows," and some paranoid delusional thoughts that random others want to hurt him. Pt. reports he has recently been living with his parents, but he is unsure if he will be able to return. He has not taken any of his medications in approximately three months, will endorse to .
--- NOTE | 2022-12-24 12:22 | NUR ---
Pt. is sitting up eating lunch at this time.
--- NOTE | 2022-12-24 13:04 | NUR ---
Dr. Bal over to evaluate pt. and received an order for Librium 25mg, for some ongoing alcohol withdrawal s/s.
--- NOTE | 2022-12-24 13:13 | NUR ---
hiram sent pt packet to [facility]
--- NOTE | 2022-12-24 14:25 | NUR ---
Pt. talking to [facility], he will be placed on a mental health hold.
--- NOTE | 2022-12-24 16:30 | NUR ---
Pt. is up pacing the unit at this time.
[2022-12-24] MEDS ORDERED: LURASIDONE HCL 80 MG PO SCH (17:00)
--- NOTE | 2022-12-24 18:06 | NUR ---
Pt. reported increased anxiety and having "Bad thoughts." This was endorsed to Dr. Madrigal and received orders for Ativan 1mg.
--- NOTE | 2022-12-24 18:09 | NUR ---
Per [facility], Brice Batista is considering pt. for placement, however they are requesting nursing notes with a CIWA Assessment for alcohol withdrawal. Will endorse to Noc shift.
--- NOTE | 2022-12-24 19:40 | NUR ---
pt resting in bed with eyes closed at this time
[2022-12-24] MEDS ORDERED: lurasidone 20mg tablet PO SCH (19:48)
[2022-12-24] MEDS ORDERED: lurasidone 20mg tablet PO ONE (19:50)
[2022-12-24] MEDS: traZODone 50mg tablet PO SCH (20:59)
[2022-12-24] MEDS: buPROPion 75mg tablet PO SCH (20:59)
[2022-12-24] MEDS: venlafaxine 25mg tablet PO SCH (20:59)
--- NOTE | 2022-12-25 06:02 | NUR ---
He slept all night, just awoke. States he slept really good. He is up to the bathroom right now.
--- NOTE | 2022-12-25 06:40 | NUR ---
Pt. ambulated back over from the main ER to Overflow accompanied by staff. He is sleeping in bed at this time.
--- NOTE | 2022-12-25 06:45 | NUR ---
Pt. ambulatory from the main ER to Overflow accompanied by staff. He is calm and cooperative, A&O x4 with no s/s of distress. Patient went back to sleep after being escorted to his new room.
--- NOTE | 2022-12-25 08:30 | NUR ---
PATIENT AWAKE AND EATING BREAKFAST AT THIS TIME. HE WAS PROVIDED WITH TOILETRIES FOR PERSONAL HYGIENE CARE. PROVIDED 1:1 ASSESSMENT. PATIENT ENDORSED TO THIS CONTRACT MANAGER THAT HE "FEELS BETTER WHEN HE IS ON HIS MEDICATION" AND "FEELS BAD FOR WHAT HE PUT HIS FAMILY THROUGH". PATIENT IS NOTED TO BE TEARFUL, YET CALM AND PLEASANT. WILL CONTINUE TO MONITOR.
[2022-12-25] MEDS: venlafaxine 25mg tablet PO SCH ×3 (08:35→21:58)
[2022-12-25] MEDS: buPROPion 75mg tablet PO SCH ×3 (08:35→21:24)
[2022-12-25] MEDS: pantoprazole 40mg Tablet.DR PO SCH (08:36)
--- NOTE | 2022-12-25 09:00 | NUR ---
Pt's mother is at bedside visiting him at this time.
--- NOTE | 2022-12-25 10:20 | NUR ---
PATIENTS MOTHER VISITING AT BEDSIDE AT THIS TIME.
--- NOTE | 2022-12-25 10:41 | NUR ---
PATIENT REQUESTED A NICOTINE PATCH WHICH THIS MACHINE FITTER INFORMED OF. HE CONTINUES VISITING WTIH HIS MOTHER AT BEDSIDE. NO S/S OF DISTRESS NOTED. WILL CONTINUE TO MONITOR.
--- NOTE | 2022-12-25 10:51 | NUR ---
RECEIVED CALL FROM [facility] OFFICE. PATIENT ACCEPTED TO [facility] AT [address] AYON
[2022-12-25] MEDS ORDERED: nicotine 21mg patch - 24 hr TD ONE (10:55)
--- NOTE | 2022-12-25 11:55 | NUR ---
PATIENT SLEEPING IN HIS ROOM AT THIS TIME. RESPIRATIONS EVEN, UNLABORED. NO S/S OF DISTRESS. WILL CONTINUE TO MONITOR.
--- NOTE | 2022-12-25 12:14 | NUR ---
Pt. had an elopement attempt out the front curtain and had to be escorted back to her room by two staff members. Pt. was yelling out as if talking to her son who she continues to believe is outside waiting for her. She stated, "Clarke, they won't let me leave!" This program writer attempted to re-orient pt. to reality without success. She is sitting up eating lunch at this time, will continue to monitor closely.
--- NOTE | 2022-12-25 13:18 | NUR ---
Pt. reported feeling nauseated, increased tremors, and sweating. V/S were obtained and pulse and BP were slightly elevated. Dr. Bal was notified and evaluated pt. for alcohol withdrawal. An order for 50mg of Librium was obtained. Will continue to monitor pt. closely.
[2022-12-25] MEDS ORDERED: chlordiazePOXIDE 25mg capsule PO ONE (13:20)
--- NOTE | 2022-12-25 14:34 | NUR ---
PATIENT OBSERVED WALKING TO THE BATHROOM WITH A STEADY GAIT. HE WALKED AROUND THE UNIT FOR A SHORT PERIOD OF TIME AFTER BEFORE RETREATING BACK TO HIS ROOM. NO CHANGES NOTED AT THIS TIME. WILL CONTINUE TO MONITOR.
--- NOTE | 2022-12-25 16:16 | NUR ---
Patient is noted resting in his room at this time. No changes or concerns noted at this time.
--- NOTE | 2022-12-25 16:17 | NUR ---
PLACEMENT NOTES: PATIENT TO BE PICKED UP ON 12/26/22 AND TRANSPORTED BY [facility] TO [facility]. AM NURSE TO CALL [facility] AND GIVE NURSE TO NURSE REPORT. CROP NUTRITION SCIENTIST TIME BETWEEN 6:45-7AM. [facility] PHONE NUMBER:
[2022-12-25] MEDS ORDERED: chlordiazePOXIDE 25mg capsule PO PRN ×2 (17:35→17:50)
--- NOTE | 2022-12-25 17:43 | NUR ---
PATIENT IS VISITING WITH HIS MOTHER AT BEDSIDE AT THIS TIME. HE IS NOTED SOCIALIZING AND APPEARS TO BE IN GOOD SPIRITS. WILL CONTINUE TO MONITOR.
--- NOTE | 2022-12-25 18:03 | NUR ---
This copy writer agrees with Fadumo Maurice LPN's assessments and documentation.
[2022-12-25] MEDS ORDERED: LORazepam 2 mg/ml vial IM STA (20:54)
[2022-12-25] MEDS ORDERED: LORazepam 1 MG tablet PO PRN (21:10)
[2022-12-25] MEDS: traZODone 50mg tablet PO SCH (21:24)
--- NOTE | 2022-12-26 04:41 | NUR ---
pt stated his hands are shaking and he feel like his wd is coming back. md informed prn med given.
--- NOTE | 2022-12-26 05:12 | NUR ---
nurse report called to [facility] faxed med rec [phone]
--- NOTE | 2022-12-26 06:30 | NUR ---
Received patient sleeping at shift change. No distress, rise and fall of chest noted.
[2022-12-26] MEDS: pantoprazole 40mg Tablet.DR PO SCH (07:14)
[2022-12-26] MEDS: venlafaxine 25mg tablet PO SCH (07:14)
[2022-12-26] MEDS: buPROPion 75mg tablet PO SCH (07:23)
[2022-12-26] MEDS ORDERED: nicotine 21mg patch - 24 hr TD ONE (08:00)
--- NOTE | 2022-12-26 08:49 | NUR ---
DISCHARGE NOTE Patient was discharged from unit at 0730. Pt left with all personal belongings, including his wallet. Pt was A&Ox4, thanking staff for his care. Pt was given his morning medication, nicotine patch placed on left shoulder. Pt was also given a snack lunch. [facility] school bus driver/teacher assistant and pt were escorted to transport vehicle.
[2022-12-26 08:51] VITALS: BP 132/96
== END 2022-12-26 07:30 | disposition still patient (30) ==
LOC: ER 15:05
DX: R45.851 Suicidal ideations (principal); Z20.822 Contact with and (suspected) exposure to COVID-19; F31.9 Bipolar disorder, unspecified; F12.90 Cannabis use, unspecified, uncomplicated
CPT/HCPCS: 36415; 80053; 80305; 80320; 81001; 85025; 87811; 96372; 99285; J2060

== ENCOUNTER 2023-04-14 18:56 | Inpatient (IN) | payer MEDICAID ==
[~2023-04-14] VITALS: Ht 185.4 cm; Wt 132.4 kg
[~2023-04-14 18:56] MED LIST changes: +BUPR100T13 PO; +LITH600C PO; +METH-350 PO; -NO HOME MEDS; +TRAZ-256 PO
[2023-04-14] MEDS ORDERED: acetaminophen 325mg tablet PO PRN ×2 (22:15)
[2023-04-14] MEDS ORDERED: magnesium hydroxide 30ml (MOM) UD suspension PO PRN (22:15)
[2023-04-14] MEDS ORDERED: mag hydrox/Alum hydrox/simeth 30ml oral suspension PO PRN (22:15)
[2023-04-14] MEDS ORDERED: loperamide 2mg capsule PO PRN (22:15)
[2023-04-14 22:19] VITALS: BP 114/68
--- NOTE | 2023-04-14 22:29 | NUR ---
ACQUISITION COST ESTIMATOR NOTE: LEGAL HOLD: 5150 for DTS PROBLEM: Client admitted for SI, stated "I just don't want to be here anymore." Hx of ETOH abuse, Bipolar DO, multiple PHF placements. RESPONSE: Client transferred from PCU at 21:28 by Joaquin Isabel and Security. Cooperative with admission. Declined to take a shower stating "I'll take one in the morning." Affect and mood are depressed.
[2023-04-14 22:46] VITALS: BP 114/68
[2023-04-14] MEDS ORDERED: traZODone 50mg tablet PO ONE (23:15)
[2023-04-15] MEDS ORDERED: traZODone 50mg tablet PO PRN (05:35)
[2023-04-15] MEDS: buPROPion 75mg tablet PO SCH ×2 (07:45→13:07)
[2023-04-15] MEDS: thiamine 100mg tablet PO SCH (07:45)
[2023-04-15] MEDS: nicotine 21mg patch - 24 hr TD SCH (07:46)
[2023-04-15] MEDS: lithium carbonate 150mg capsule PO SCH ×2 (07:46→20:16)
[2023-04-15] MEDS: folic acid 1mg tablet PO SCH (07:48)
[2023-04-15 08:00] VITALS: BP 116/82
[2023-04-15] MEDS ORDERED: methylphenidate 5mg tablet PO SCH (08:00)
[2023-04-15 08:21] LABS: CHOL/HDL RATIO 2.1 (0.00-4.99); CHOLESTEROL 164 MG/DL (0-200); HDL CHOLESTEROL 80 MG/DL (35-60); LDL CHOLESTEROL 66 MG/DL (50-100); TRIGLYCERIDES 46 MG/DL (20-135)
[2023-04-15] MEDS: methylphenidate 5mg tablet PO SCH (14:14)
[2023-04-15] MEDS: NICOTINE POLACRILEX 2 MG LOZENGE BC PRN (16:46)
--- NOTE | 2023-04-15 16:54 | NUR ---
Nursing Progress Note: Ambrocio Problem: Pt. admitted on a 5150.Client admitted for SI, stated "I just don't want to be here anymore." Hx of ETOH abuse, Bipolar DO, multiple PHF placements. Interventions: Maintained a safe and supportive environment, ensured contract for safety, provided clear and simple instructions, and maintained Q 15min safety checks. Response: Pt. received asleep and awoke to take his medications. He endorses thoughts of want to be , but drinking myself to is a long process also reports stating I see shadows of people sometimes, but I know theyre not real he denies HI, AH. Pt. presents with fair eye contact, speaks in a soft tone and presents as down casted. Pt. spent most of the morning napping after breakfast, awoke for snack and napped until lunch. Pt. offered a shower, but reported he showered yesterday. He ate all meals in the community room with cohorts, but often seen sitting by himself in a chair. He has fair hygiene, un kept, and wears unit scrubs. Plan: Pt. continues to require a safe and supportive environment. Addendum: 04/16/23 at 1836 by Justin Allen RN (Coop) PHOTOGRAPHIC LABORATORY TECHNICIAN documentation: I have reviewed and agree with all interventions, assessments performed and documented by the PHOTOGRAPHIC LABORATORY TECHNICIAN .
[2023-04-15 20:00] VITALS: BP 115/83
[2023-04-15] MEDS ORDERED: traZODone 50mg tablet PO SCH (20:00)
[2023-04-15] MEDS: traZODone 50mg tablet PO SCH (20:17)
--- NOTE | 2023-04-16 01:03 | NUR ---
Nursing Progress Note: Ambrocio Pendleton Problem: Pt. admitted on a 5150.Client admitted for SI, stated "I just don't want to be here anymore." Hx of ETOH abuse, Bipolar DO, multiple PHF placements. Interventions: Maintained a safe and supportive environment, ensured contract for safety, provided clear and simple instructions, and maintained Q 15min safety checks. Response: Pt in for refreshments sitting with cohorts asking questions about a card game. He walked in segal with female pt. He denies HI, AH. Eye contact poor, speaks softly. Took medications, and asking questions about them. Pt wearing unit scrubs, greasy hair not wanting a shower. Slept well thus far. Plan: Pt. continues to require a safe and supportive environment. Addendum: 04/16/23 at 0249 by Mary Jo Trotter RN 0240 pt woke up asking for another dose of Trazodone. PRN dose given, pt said thank you and now back to bed.
[2023-04-16] MEDS: buPROPion 75mg tablet PO SCH ×2 (07:33→13:40)
[2023-04-16] MEDS: folic acid 1mg tablet PO SCH (07:34)
[2023-04-16] MEDS: lithium carbonate 150mg capsule PO SCH ×2 (07:34→21:14)
[2023-04-16] MEDS: thiamine 100mg tablet PO SCH (07:34)
[2023-04-16] MEDS: methylphenidate 5mg tablet PO SCH ×2 (07:34→13:39)
[2023-04-16] MEDS: nicotine 21mg patch - 24 hr TD SCH (07:35)
[2023-04-16 08:00] VITALS: BP 99/62
[2023-04-16] MEDS: NICOTINE POLACRILEX 2 MG LOZENGE BC PRN ×3 (08:35→20:22)
--- NOTE | 2023-04-16 15:24 | NUR ---
Nursing Progress Note: Ambrocio Problem: Pt. admitted on a 5150. Client admitted for SI, stated "I just don't want to be here anymore." Hx of ETOH abuse, Bipolar DO, multiple PHF placements. Interventions: Established rapport, maintained a safe and supportive environment, ensured contract for safety, therapeutic communication and listening, provided clear and simple instructions, and maintained Q15 minute safety checks. Response: Patient was received up and drinking coffee at change of shift. He retreated back to his room and was noted resting until breakfast arrived. Pt was receptive to scheduled medication and 1:1 assessment. Pt endorsed SI, stating that he would take any means possible to hurt himself if he was to leave. Patient also endorsing that he cant stop thinking about killing himself. Pt noted to be tearful, stating that he keeps thinking of hanging himself from the doorway. He denies HI and AH. Pt reports that he has been seeing shadows of someone standing behind him, however, endorses that he knows its not real. He took a shower this morning and changed into clean unit scrub pants and a personal t-shirt. He participated on the patio with peers this morning, noted interacting appropriately. Patient is pleasant, calm, and cooperative with care. He was noted talking on the phone with his mom later in the morning. Pt was observed sleeping intermittently throughout the shift. He was present on the unit at times, noted watching television with peers. Pt joined for all meal and snack times in the group room this shift. Plan: Pt. continues to require a safe and supportive environment. Addendum: 04/16/23 at 1832 by Justin Granger) ANGELA CERTIFIED FIRST ASSISTANT documentation: I have reviewed and agree with all interventions, assessments performed and documented by the CERTIFIED FIRST ASSISTANT .
[2023-04-16 20:00] VITALS: BP 108/57
[2023-04-16] MEDS: traZODone 50mg tablet PO SCH (21:14)
--- NOTE | 2023-04-17 05:23 | NUR ---
Nursing Progress Note: Problem: Pt. admitted on a 5150. Client admitted for SI, stated "I just don't want to be here anymore." Hx of ETOH abuse, Bipolar DO, multiple PHF placements. Interventions: Established rapport, maintained a safe and supportive environment, ensured contract for safety, therapeutic communication and listening, provided clear and simple instructions, and maintained Q15 minute safety checks. Response: Patient was found in the day room watching TV with peers. Pt appears depressed and became tearful during our interview. Pt stated he was trying to drink himself to but it was taking too long. Pt endorses having visions of himself hanging from a doorway. I dont know why, I dont want to harm myself but I feel like Betty already done so much damage in my life. Pt spoke of his daughter and that he missed her 8th birthday. Pt did talk about a program he was going to in [place] but never made the interview, I still want to go there after my discharge here. Pt denies SI/HI/AVH. No delusional statements made. 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 Pt is medication compliant and had a PRN nicotine lozenge. Nicotine patch removes. Monitor for safety q15 minutes. Plan: Pt. continues to require a safe and supportive environment.
[2023-04-17] MEDS: lithium carbonate 150mg capsule PO SCH ×2 (07:55→20:53)
[2023-04-17] MEDS: folic acid 1mg tablet PO SCH (07:55)
[2023-04-17] MEDS: methylphenidate 5mg tablet PO SCH ×2 (07:56→13:55)
[2023-04-17] MEDS: thiamine 100mg tablet PO SCH (07:56)
[2023-04-17] MEDS: buPROPion 75mg tablet PO SCH ×2 (07:56→13:55)
[2023-04-17] MEDS: nicotine 21mg patch - 24 hr TD SCH (07:59)
[2023-04-17 08:00] VITALS: BP 108/84
[2023-04-17] MEDS: NICOTINE POLACRILEX 2 MG LOZENGE BC PRN ×2 (09:37→16:02)
--- NOTE | 2023-04-17 14:59 | NUR ---
Assisted Ambrocio with calling [facility] (ph# [phone]), to follow up on his intake he did a couple weeks ago. He left a message requesting a call back. RAHAT Monteengro
--- NOTE | 2023-04-17 17:22 | NUR ---
Nursing Progress Note: Ambrocio Problem: Pt. admitted on a 5150. Client admitted for SI, stated "I just don't want to be here anymore." Hx of ETOH abuse, Bipolar DO, multiple PHF placements. Interventions: Maintained a safe and supportive environment, ensured contract for safety, therapeutic communication and listening, medication administration/education/monitoring, provided clear and simple instructions, and maintained Q15 minute safety checks. Response: Patient received sleeping in his room at shift change. He awoke and was noted watching television in the group room until breakfast arrived. Pt endorsed that he is feeling a little better today. He was receptive to scheduled medication this morning. Pt reported that he is still having trouble at night with thoughts of SI. Pt participated in group therapy today, noted interacting and engaging appropriately with peers. He is hopeful to get accepted to [facility] in [place]. He denies HI, MCKEON or VH. Does not appear to be responding to IS. Pt noted to be tearful while endorsing that he had hoped to spend the summer with his family. He was active on the unit the majority of the shift noted watching TV in the group room. Pt is social and pleasant with other peers on the unit. He was observed taking a short nap after lunch time. Pt joined for all meal and snack times in the group room with peers. Plan: Pt. continues to require a safe and supportive environment. Addendum: 04/17/23 at 1822 by Justin Granger) RN SPRING FLOOR SERVICE WORKER documentation: I have reviewed and agree with all interventions, assessments performed and documented by Fadumo ROBERTS.
[2023-04-17 20:00] VITALS: BP 104/54
[2023-04-17] MEDS: traZODone 50mg tablet PO SCH (20:53)
--- NOTE | 2023-04-18 04:32 | NUR ---
Nursing Progress Note: Problem: Pt. admitted on a 5150. Client admitted for SI, stated "I just don't want to be here anymore." Hx of ETOH abuse, Bipolar DO, multiple PHF placements. Interventions: 1:1 assessment, therapeutic conversation, active listening, maintained a safe and supportive environment, ensured contract for safety, medication administration/education/monitoring, pain management, encouragement to drink adequate water intake daily, encouraged performance of ADLs and participation on the unit, provided positive reinforcement, and maintained Q15 min safety checks. Response: Received pt in his room, lying in bed resting. Pt sat at his bedside for interview. Pt stated that he is scared and really wants to get better. Pt continues to endorse visions of himself hanging from the door. I dont want to hurt myself but I dont why Im having these thoughts, I want to get better but Im scared I wont. Pt called some rehabs today and was disappointed that the first on had a month waiting list. He called the rehab in [place] and left a message. Pt denies HI/AVH. Pt is medication compliant. Pt stated he is trying to keep busy just to get out of his own head. I walked the halls and went to group. Monitor for safety q15 minutes. Plan: Pt. continues to require a safe and supportive environment.
[2023-04-18 08:00] VITALS: BP 116/74
[2023-04-18] MEDS: lithium carbonate 150mg capsule PO SCH ×2 (08:04→20:55)
[2023-04-18] MEDS: thiamine 100mg tablet PO SCH (08:04)
[2023-04-18] MEDS: buPROPion 75mg tablet PO SCH ×2 (08:05→13:43)
[2023-04-18] MEDS: methylphenidate 5mg tablet PO SCH ×2 (08:05→13:43)
[2023-04-18] MEDS: nicotine 21mg patch - 24 hr TD SCH (08:05)
[2023-04-18] MEDS: folic acid 1mg tablet PO SCH (08:05)
[2023-04-18] MEDS: NICOTINE POLACRILEX 2 MG LOZENGE BC PRN ×2 (14:46→19:27)
--- NOTE | 2023-04-18 15:16 | NUR ---
Initial: Pt admit for major depressive disorder with SI and alcohol dependency. Pt's on a regular diet with double protein with an average PO intake of 96% x 9 meals meeting estimated needs. Pt receiving routine folic acid and thiamine d/t EtOH hx. Recommend adding a MVM with iron, calcium and vitamin B12 d/t alcohol abuse and carline-en-y gastric bypass, discussed with RN. Pt's LBM on 04/17 per EMR. Will continue to monitor for additional nutrition interventions. Recommendations: 1) continue regular diet with double protein TID 2) Continue routine thiamin and folic acid; consider adding a MVM with iron, calcium, and vitamin B12 d/t heavy alcohol use and carline-en-y gastric bypass 3) bowel care PRN 4) weekly wt Addendum: 04/18/23 at 1517 by Aparna Del Castillo Intern RD Amended: Links added. Addendum: 04/18/23 at [address] I have reviewed and agree with note. WILMAN Ley
--- NOTE | 2023-04-18 15:16 | NUR ---
Pt. attended group. VIRI LayW
--- NOTE | 2023-04-18 16:33 | NUR ---
Nursing Progress Note: Ambrocio Problem: Pt. admitted on a 5150. Client admitted for SI, stated "I just don't want to be here anymore." Hx of ETOH abuse, Bipolar DO, multiple PHF placements. Interventions: Maintained a safe and supportive environment, ensured contract for safety, therapeutic communication and listening, medication administration/education/monitoring, provided clear and simple instructions, and maintained Q15 minute safety checks. Response: Patient received sleeping in bed at change of shift. He was noted walking around the unit shortly after drinking coffee. Pt was receptive to scheduled medication and 1:1 assessment. Pt reported that he is hopeful to get accepted to a rehab program. He endorsed passive SI thoughts when he is trying to sleep. He denies HI, AH and VH. Does not appear to be responding to IS. Pt participated on the patio with other peers today. He is noted to be social, pleasant, and cooperative with care. Pt was noted to be active on the unit the majority of the shift. He endorsed to this play writer that he is trying to stay out of his room more today. He was observed watching television in the group room with peers. Pt joined for meal and snack times in the group room this shift. Plan: Pt. continues to require a safe and supportive environment.
[2023-04-18] MEDS: calcium carbonate 500mg tablet PO SCH (18:18)
[2023-04-18 19:36] VITALS: BP 103/54
[2023-04-18] MEDS: traZODone 50mg tablet PO SCH (20:55)
--- NOTE | 2023-04-19 02:41 | NUR ---
Nursing Progress Note: Problem: Pt. admitted on a 5150. Client admitted for SI, stated "I just don't want to be here anymore." Hx of ETOH abuse, Bipolar DO, multiple PHF placements. Interventions: Maintained a safe and supportive environment, ensured contract for safety, therapeutic communication and listening, medication administration/education/monitoring, provided clear and simple instructions, and maintained Q15 minute safety checks. Response: Patient is pleasant and cooperative with care; compliant with medication. PRN Nicotine lozenge provided and patch removed. Patient reports passive SI, denied HI, A/VH; no apparent delusions expressed. Patient reports worrying about the future as he has no place to live; hopeful to getting into a 90 day program. Patient talked on the phone with his parents and provided HS snack prior to bed; observed sleeping and does not appear to be having difficulty. Plan: Pt. continues to require a safe and supportive environment.
--- NOTE | 2023-04-19 05:08 | NUR ---
ORGANIZATIONAL DEVELOPMENT MANAGER documentation: I have reviewed interventions, assessments performed and documented by Althea ROBERTS.
[2023-04-19 08:00] VITALS: BP 119/80
[2023-04-19] MEDS: methylphenidate 5mg tablet PO SCH ×2 (08:36→12:29)
[2023-04-19] MEDS: multivitamins, therapeutics tablet PO SCH (08:37)
[2023-04-19] MEDS: folic acid 1mg tablet PO SCH (08:37)
[2023-04-19] MEDS: buPROPion 75mg tablet PO SCH ×2 (08:37→12:28)
[2023-04-19] MEDS: cyanocobalamin 500mcg tablet PO SCH (08:37)
[2023-04-19] MEDS: thiamine 100mg tablet PO SCH (08:37)
[2023-04-19] MEDS: lithium carbonate 150mg capsule PO SCH ×2 (08:37→16:44)
[2023-04-19] MEDS: nicotine 21mg patch - 24 hr TD SCH (08:38)
[2023-04-19] MEDS: calcium carbonate 500mg tablet PO SCH ×3 (09:07→16:45)
--- NOTE | 2023-04-19 14:27 | NUR ---
DISCHARGE PLANNING [place] reported he called [facility] again yesterday and left another message. He reported he called [facility] and did an intake, however, they won't have beds for about a month. Gave him the phone number for [place] to call and inquire about other rehabs. RAHAT [place]en[place]ro
--- NOTE | 2023-04-19 16:08 | NUR ---
Nursing Progress Note: [place]roc[place] Problem: Pt. admitted on a 5150.Client admitted for SI, stated "I just don't want to be here anymore." Hx of ETOH abuse, Bipolar DO, multiple PHF placements. Interventions: Maintained a safe and supportive environment, ensured contract for safety, provided clear and simple instructions, and maintained Q 15min safety checks. Response: Pt. received asleep and awoke to take his medications without hesitation. Pt. endorses passive SI, denies HI, AH, VH and reports he is looking for Dc placement. He ate breakfast with cohorts and returned to bed and napped until snack. Pt. attended group today and spent time sitting with cohorts in the community room and socializes. He refused needing a shower today, ate all meals in the community room, has fair hygiene, and wears unit scrubs. Plan: Pt. continues to require a safe and supportive environment.
[2023-04-19] MEDS: venlafaxine 25mg tablet PO SCH (16:44)
[2023-04-19 20:00] VITALS: BP 112/71
[2023-04-19] MEDS: traZODone 50mg tablet PO SCH (21:41)
--- NOTE | 2023-04-20 02:39 | NUR ---
Nursing Progress Note: Problem: Pt. admitted on a 5150. Client admitted for SI, stated "I just don't want to be here anymore." Hx of ETOH abuse, Bipolar DO, multiple PHF placements. Interventions: Maintained a safe and supportive environment, ensured contract for safety, therapeutic communication and listening, medication administration/education/monitoring, provided clear and simple instructions, and maintained Q15 minute safety checks. Response: Patient is pleasant and cooperative with care; compliant with medication. Nicotine patch removed. Patient endorsed SI but does not intend to act on his thoughts; denied HI, A/VH. No apparent delusions expressed. Patient appeared to be hopeful as he spoke with one of the rehab facilities during the day. He socialized with peers and participated in HS snack prior to bed; observed sleeping and does not appear to be having difficulty. Plan: Pt. continues to require a safe and supportive environment.
--- NOTE | 2023-04-20 04:48 | NUR ---
LEAD CUSTODIAN documentation: I have reviewed interventions, assessments performed and documented by Althea ROBERTS.
[2023-04-20 08:00] VITALS: BP 114/64
[2023-04-20] MEDS: buPROPion 75mg tablet PO SCH ×2 (08:10→12:23)
[2023-04-20] MEDS: venlafaxine 25mg tablet PO SCH ×3 (08:10→17:23)
[2023-04-20] MEDS: folic acid 1mg tablet PO SCH (08:11)
[2023-04-20] MEDS: cyanocobalamin 500mcg tablet PO SCH (08:11)
[2023-04-20] MEDS: thiamine 100mg tablet PO SCH (08:11)
[2023-04-20] MEDS: lithium carbonate 150mg capsule PO SCH ×3 (08:11→16:35)
[2023-04-20] MEDS: methylphenidate 5mg tablet PO SCH ×2 (08:12→12:23)
[2023-04-20] MEDS: multivitamins, therapeutics tablet PO SCH (08:12)
[2023-04-20] MEDS: nicotine 21mg patch - 24 hr TD SCH (08:12)
[2023-04-20] MEDS: calcium carbonate 500mg tablet PO SCH ×3 (09:14→16:35)
[2023-04-20] MEDS: NICOTINE POLACRILEX 2 MG LOZENGE BC PRN ×2 (11:41→20:26)
--- NOTE | 2023-04-20 13:21 | NUR ---
5250 upheld for DTS
--- NOTE | 2023-04-20 14:13 | NUR ---
Pt attended group today. Anuja Quispe LCSW
--- NOTE | 2023-04-20 16:42 | NUR ---
Nursing Progress Note: Ambrocio Problem: Pt. admitted on a 5150.Client admitted for SI, stated "I just don't want to be here anymore." Hx of ETOH abuse, Bipolar DO, multiple PHF placements. Interventions: Maintained a safe and supportive environment, ensured contract for safety, provided clear and simple instructions, and maintained Q 15min safety checks. Response: Pt. received asleep and awoke for breakfast, he took his medications without hesitation. He denies HI, AH, and endorses passing thoughts of hurting myself, thats why Betty tried to stay out of my room he also reported VH stating I see like shadows behind my shoulder but I know there not real He ate all meals in the community room with cohorts often socializing at length. Pt. attended group today, and remained in the community room coloring until lunch time. Pt. presents with good eye contact, is articulate, and cooperative. Pt. is unshaven, slightly disheveled, but refused needing a shower. Plan: Pt. continues to require a safe and supportive environment.
[2023-04-20 19:39] VITALS: BP 122/83
[2023-04-20] MEDS: traZODone 50mg tablet PO SCH (21:39)
--- NOTE | 2023-04-21 04:04 | NUR ---
Nursing Progress Note: Problem: Pt. admitted on a 5150. Client admitted for SI, stated "I just don't want to be here anymore." Hx of ETOH abuse, Bipolar DO, multiple PHF placements. Interventions: Maintained a safe and supportive environment, ensured contract for safety, therapeutic communication and listening, medication administration/education/monitoring, provided clear and simple instructions, and maintained Q15 minute safety checks. Response: Patient is pleasant and cooperative with care; compliant with medication. PRN Nicotine lozenges provided and patch removed. Patient continues to report intermittent SI that he does not plan to act on; denied HI. He continues to endorse VH "shadow figures" and denied AH. Patient social with peers, watched TV in the community room and participated in HS snack prior to bed; observed sleeping and does not appear to be having difficulty. Plan: Pt. continues to require a safe and supportive environment.
[2023-04-21 08:00] VITALS: BP 120/84
[2023-04-21] MEDS: calcium carbonate 500mg tablet PO SCH ×3 (08:06→16:43)
[2023-04-21] MEDS: cyanocobalamin 500mcg tablet PO SCH (08:06)
[2023-04-21] MEDS: buPROPion 75mg tablet PO SCH ×2 (08:06→12:18)
[2023-04-21] MEDS: multivitamins, therapeutics tablet PO SCH (08:06)
[2023-04-21] MEDS: methylphenidate 5mg tablet PO SCH ×2 (08:06→12:17)
[2023-04-21] MEDS: thiamine 100mg tablet PO SCH (08:06)
[2023-04-21] MEDS: folic acid 1mg tablet PO SCH (08:06)
[2023-04-21] MEDS: nicotine 21mg patch - 24 hr TD SCH (08:07)
[2023-04-21] MEDS: lithium carbonate 150mg capsule PO SCH ×3 (08:07→16:44)
[2023-04-21] MEDS: venlafaxine 25mg tablet PO SCH ×3 (08:07→16:43)
[2023-04-21] MEDS: NICOTINE POLACRILEX 2 MG LOZENGE BC PRN ×2 (10:00→18:38)
--- NOTE | 2023-04-21 10:13 | NUR ---
Ambrocio signed release for records for [facility]. Sent requested records. # [phone] RAHAT Monten[place]ro
--- NOTE | 2023-04-21 15:58 | NUR ---
Nursing Progress Note: [place] Problem: Pt. admitted on a 5150.Client admitted for SI, stated "I just don't want to be here anymore." Hx of ETOH abuse, Bipolar DO, multiple PHF placements. Interventions: Maintained a safe and supportive environment, ensured contract for safety, provided clear and simple instructions, and maintained Q 15min safety checks. Response: Pt. received asleep, and awoke to attend breakfast. Pt. took his medications without hesitation and requested PRN nicotine lozenge. Pt. endorses fleeting thoughts of suicide with no plan, he reports he is feeling a lessening of depression sx with recent med changes, and ran a [employer] game for cohorts. Pt. denies HI, AH, and reports seeing a shadow figure behind his shoulder Pt. out on the unit socializing most of the shift, interacts well with staff and cohorts. Pt. has good eye contact and is articulate. Pt. has fair hygiene, unshaven, and wears unit scrubs. Plan: Pt. continues to require a safe and supportive environment.
--- NOTE | 2023-04-21 17:46 | NUR ---
ORACLE E BUSINESS DEVELOPER documentation: I have reviewed documentation by ALEJANDRA Rebolledo.
[2023-04-21 19:00] VITALS: BP 127/86
[2023-04-21] MEDS: traZODone 50mg tablet PO SCH (20:29)
--- NOTE | 2023-04-22 00:58 | NUR ---
Nursing Progress Note: Amb[place] Problem: Pt. admitted on a 5150. Client admitted for SI, stated "I just don't want to be here anymore." Hx of ETOH abuse, Bipolar DO, multiple PHF placements. Interventions: Maintained a safe and supportive environment, ensured contract for safety, provided clear and simple instructions, and maintained Q 15min safety checks. Response: Received report from AM shift. Pt pleasant and cooperative, took meds with no issues noted. Pt in community room interacting with peers most of the evening. Pt is sociable this evening with peers and staff. Pt denies HI, AH/VH. Pt. endorses thoughts of suicide with no plan or intent. Pt reported he was feeling depressed due to divorce and loss of his job. Pt reported he misses his 8 year old daughter who lives with her mother in [facility] [place]. 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 Pt reported his license to work as an SUBSTATION SUPERVISOR is suspended for 3 years. Pt reported feeling better and wants to get his life back on track. Pt had some relief speaking with this quality analyst/technical writer. No s/s of distress at this time. Plan: Pt. continues to require a safe and supportive environment.
[2023-04-22] MEDS: NICOTINE POLACRILEX 2 MG LOZENGE BC PRN ×4 (06:09→19:39)
[2023-04-22 08:00] VITALS: BP 113/85
[2023-04-22] MEDS: buPROPion 75mg tablet PO SCH ×2 (09:08→13:01)
[2023-04-22] MEDS: methylphenidate 5mg tablet PO SCH ×2 (09:09→13:00)
[2023-04-22] MEDS: lithium carbonate 150mg capsule PO SCH ×3 (09:10→17:58)
[2023-04-22] MEDS: multivitamins, therapeutics tablet PO SCH (09:10)
[2023-04-22] MEDS: venlafaxine 25mg tablet PO SCH ×3 (09:10→17:58)
[2023-04-22] MEDS: calcium carbonate 500mg tablet PO SCH ×3 (09:11→17:59)
[2023-04-22] MEDS: nicotine 21mg patch - 24 hr TD SCH (09:11)
[2023-04-22] MEDS: thiamine 100mg tablet PO SCH (09:11)
[2023-04-22] MEDS: cyanocobalamin 500mcg tablet PO SCH (09:11)
[2023-04-22] MEDS: folic acid 1mg tablet PO SCH (09:11)
--- NOTE | 2023-04-22 16:15 | NUR ---
Nursing Progress Note: [place] Problem: Pt. admitted on a 5150. Client admitted for SI, stated "I just don't want to be here anymore." Hx of ETOH abuse, Bipolar DO, multiple PHF placements. Interventions: Maintained a safe and supportive environment, ensured contract for safety, provided clear and simple instructions, and maintained Q 15min safety checks. Response: Patient was found sleeping at beginning of shift. Patient got up with breakfast and later started walking around unit socializing with other patients. Patient spent majority of shift in community room talking to other patients about his past experiences and trying to encourage them. Patient took all medications with out issue. Plan: Pt. continues to require a safe and supportive environment.
[2023-04-22 19:00] VITALS: BP 129/87
[2023-04-22] MEDS: traZODone 50mg tablet PO SCH (20:43)
--- NOTE | 2023-04-23 03:29 | NUR ---
Nursing Progress Note: [place] Problem: Pt. admitted on a 5150. Client admitted for SI, stated "I just don't want to be here anymore." Hx of ETOH abuse, Bipolar DO, multiple PHF placements. Interventions: Maintained a safe and supportive environment, ensured contract for safety, provided clear and simple instructions, and maintained Q 15min safety checks. Response: Received report from AM shift. Pt reported feeling good today. Pt pleasant and cooperative, took meds with no issues noted. Pt volunteer to help the nurse gather Pt for vitals this evening. Pt in community room interacting with peers most of the evening. Pt is sociable this evening with peers and staff. Pt denies HI, AH/VH. Pt. endorses thoughts of suicide with no plan or intent. Pt reported thoughts has decrease. No s/s of distress at this time. Plan: Pt. continues to require a safe and supportive environment.
[2023-04-23] MEDS: lithium carbonate 150mg capsule PO SCH ×3 (07:32→17:11)
[2023-04-23] MEDS: venlafaxine 25mg tablet PO SCH ×3 (07:32→17:11)
[2023-04-23] MEDS: folic acid 1mg tablet PO SCH (07:32)
[2023-04-23] MEDS: thiamine 100mg tablet PO SCH (07:33)
[2023-04-23] MEDS: methylphenidate 5mg tablet PO SCH ×2 (07:33→13:06)
[2023-04-23] MEDS: NICOTINE POLACRILEX 2 MG LOZENGE BC PRN ×3 (07:33→20:11)
[2023-04-23] MEDS: buPROPion 75mg tablet PO SCH ×2 (07:33→13:06)
[2023-04-23] MEDS: cyanocobalamin 500mcg tablet PO SCH (07:33)
[2023-04-23] MEDS: nicotine 21mg patch - 24 hr TD SCH (07:34)
[2023-04-23] MEDS: multivitamins, therapeutics tablet PO SCH (07:39)
[2023-04-23 08:00] VITALS: BP 127/80
[2023-04-23] MEDS: calcium carbonate 500mg tablet PO SCH ×3 (08:00→17:11)
--- NOTE | 2023-04-23 16:25 | NUR ---
Nursing Progress Note: Ambroc[place] Problem: Pt. admitted on a 5150.Client admitted for SI, stated "I just don't want to be here anymore." Hx of ETOH abuse, Bipolar DO, multiple PHF placements. Interventions: Maintained a safe and supportive environment, ensured contract for safety, provided clear and simple instructions, and maintained Q 15min safety checks. Response: Received Pt in bed sleeping w/o distress. Pt woke and was cooperative with vitals. He took AM and all scheduled meds w/o issue and ate meals well. Pt was very social today in community room and seen laughing and playing games with other Pts He walked halls with others and was cooperative and pleasant. Pts affect and words report a lessening of depressive feelings. Pt denies SI intent/ HI at this time. Pt used nicotine Alfred. and patch with good effect. Pt is future focused and talked about getting his license back and wanting to work. Plan: Pt. continues to require a safe and supportive environment.
[2023-04-23 20:00] VITALS: BP 111/76
[2023-04-23] MEDS: traZODone 50mg tablet PO SCH (21:59)
--- NOTE | 2023-04-24 00:21 | NUR ---
Nursing Progress Note: Problem: Pt. admitted on a 5150. Client admitted for SI, stated "I just don't want to be here anymore." Hx of ETOH abuse, Bipolar DO, multiple PHF placements. Interventions: Maintained a safe and supportive environment, ensured contract for safety, therapeutic communication and listening, medication administration/education/monitoring, provided clear and simple instructions, and maintained Q15 minute safety checks. Response: Received Pt in community room watching TV and being social with others. Pt cooperative with vitals and continued to talk and watch a movie. Pt remains future oriented and pleasant in conversation. Pt denies suicidal intent, despite thoughts occasionally. Pt had snack and took HS meds and went to bed. Pt sleeping at this time and will continue to monitor. Plan: Pt. continues to require a safe and supportive environment.
[2023-04-24 08:00] VITALS: BP 128/82
[2023-04-24] MEDS: lithium carbonate 150mg capsule PO SCH ×3 (08:06→17:10)
[2023-04-24] MEDS: methylphenidate 5mg tablet PO SCH ×2 (08:06→12:32)
[2023-04-24] MEDS: venlafaxine 25mg tablet PO SCH ×3 (08:06→17:11)
[2023-04-24] MEDS: folic acid 1mg tablet PO SCH (08:07)
[2023-04-24] MEDS: nicotine 21mg patch - 24 hr TD SCH (08:07)
[2023-04-24] MEDS: cyanocobalamin 500mcg tablet PO SCH (08:07)
[2023-04-24] MEDS: buPROPion 75mg tablet PO SCH ×2 (08:07→12:32)
[2023-04-24] MEDS: multivitamins, therapeutics tablet PO SCH (08:07)
[2023-04-24] MEDS: thiamine 100mg tablet PO SCH (08:07)
[2023-04-24] MEDS: calcium carbonate 500mg tablet PO SCH ×3 (08:29→17:10)
[2023-04-24] MEDS: NICOTINE POLACRILEX 2 MG LOZENGE BC PRN ×3 (09:53→19:25)
--- NOTE | 2023-04-24 10:12 | NUR ---
[facility] [phone] ext [phone]). They are still waiting for records from [facility]. Once they receive those, the medical team will review his file. There currently is a wait-list. Requested [facility] send last 6 months of psychiatry notes as requested by Jaciel. Sent CAITLIN that Ambrocio had signed for [facility]. Will continue to follow up with [facility]. RAHAT Monten[place]ro
--- NOTE | 2023-04-24 16:16 | NUR ---
Nursing Progress Note: Ambrocio Problem: Pt. admitted on a 5150. Client admitted for SI, stated "I just don't want to be here anymore." Hx of ETOH abuse, Bipolar DO, multiple PHF placements. Interventions: Maintained a safe and supportive environment, ensured contract for safety, therapeutic communication and listening, medication administration/education/monitoring, provided clear and simple instructions, and maintained Q15 minute safety checks. Response: Patient received standing in the hallway socializing appropriately with peers. He joined for breakfast in the group room this morning. Pt is compliant with scheduled medication. He endorsed lessening symptoms of depression and thoughts of SI. Pt reports some thoughts of SI with no active plan. Pt denies HI and AH. He endorsed having a shadow that appears in his peripheral view and disappears when he looks at it. Pt is noted to be social and pleasant with other peers on the unit. He was noted interacting appropriately with other peers throughout the day. Pt is active on the unit. He joined for group therapy today. Pt endorsed feeling sad and letdown that his mom didnt come to visit him today. Pt appears hopeful and optimistic to go to a rehab when he leaves this facility. He was observed watching television in the group room with peers. Pt joined for meal and snack times in the group room this shift. Plan: Pt. continues to require a safe and supportive environment.
--- NOTE | 2023-04-24 16:32 | NUR ---
LAYOUT WORKER documentation: I have reviewed all interventions, assessments performed and documented by ALEJANDRA Thorne.
[2023-04-24 19:32] VITALS: BP 126/79
[2023-04-24] MEDS: traZODone 50mg tablet PO SCH (21:50)
--- NOTE | 2023-04-24 23:49 | NUR ---
Nursing Progress Note: [place] Problem: Pt. admitted on a 5150. Client admitted for SI, stated "I just don't want to be here anymore." Hx of ETOH abuse, Bipolar DO, multiple PHF placements. Interventions: Maintained a safe and supportive environment, ensured contract for safety, therapeutic communication and listening, medication administration/education/monitoring, provided clear and simple instructions, and maintained Q15 minute safety checks. Response: Patient was playing board games with peers at change of shift. Pt is in a pleasant mood, denies s/i but reports seeing "shadows/auras on my shoulders, like in my peripheral vision." Pt states he knows they aren't real. Pt had snacks in the group room with peers. Pt requested to take Seroquel "as late as possible" and requested to take seroquel shortly before 2200 and going to bed. Plan: Pt. continues to require a safe and supportive environment.
[2023-04-25 08:00] VITALS: BP 133/89
[2023-04-25] MEDS: methylphenidate 5mg tablet PO SCH ×2 (08:09→12:51)
[2023-04-25] MEDS: cyanocobalamin 500mcg tablet PO SCH (08:10)
[2023-04-25] MEDS: multivitamins, therapeutics tablet PO SCH (08:10)
[2023-04-25] MEDS: thiamine 100mg tablet PO SCH (08:10)
[2023-04-25] MEDS: folic acid 1mg tablet PO SCH (08:10)
[2023-04-25] MEDS: lithium carbonate 150mg capsule PO SCH ×3 (08:10→18:07)
[2023-04-25] MEDS: buPROPion 75mg tablet PO SCH ×2 (08:10→12:51)
[2023-04-25] MEDS: venlafaxine 25mg tablet PO SCH ×3 (08:10→18:07)
[2023-04-25] MEDS: calcium carbonate 500mg tablet PO SCH ×3 (08:12→18:07)
[2023-04-25] MEDS: nicotine 21mg patch - 24 hr TD SCH (08:13)
--- NOTE | 2023-04-25 11:04 | NUR ---
Spoke to Aleisha at [facility] (ph# [phone], ext [phone]). She reported they are still waiting for records from [facility] to present Ambrocio's case to the medical team. She reported they expect to have some male beds opening soon. RAHAT Montenegro
[2023-04-25] MEDS: NICOTINE POLACRILEX 2 MG LOZENGE BC PRN ×3 (11:08→16:23)
--- NOTE | 2023-04-25 17:07 | NUR ---
Nursing Progress Note: [place] Problem: Pt. admitted on a 5150. Client admitted for SI, stated "I just don't want to be here anymore." Hx of ETOH abuse, Bipolar DO, multiple PHF placements. Interventions: Maintained a safe and supportive environment, ensured contract for safety, therapeutic communication and listening, medication administration/education/monitoring, provided clear and simple instructions, and maintained Q15 minute safety checks. Response: Patient received sleeping in his room at change of shift with no s/s of distress. He awoke before breakfast and was noted socializing with peers in the hallway. Pt presents as calm, pleasant, social, and cooperative with care. He is compliant with scheduled medication. Pt continues to endorse passive SI with no active plan. He reported to this commercial real estate underwriter that his thoughts are less often. He continues to report having a shadow or aura behind him periodically throughout the day. Pt denies HI and AH. Does not appear to be responding to internal stimuli. Pt is active on the unit throughout the shift. He was observed visiting with his mother during visiting hours today. Pt continues to appear hopeful to go to a rehab program when he leaves this facility. He reports some anxiety and fear of the unknown to this commercial real estate underwriter. Pt noted watching television with peers intermittently today. He was observed sitting in the group room socializing with a peer later in the day. He joined for meal and snack times in the group room this shift. Plan: Pt. continues to require a safe and supportive environment.
--- NOTE | 2023-04-25 17:30 | NUR ---
VENDOR RELATIONSHIP MANAGER documentation: I have reviewed all interventions and assessments performed and documented by ALEJANDRA Thorne.
[2023-04-25 19:49] VITALS: BP 139/93
[2023-04-25] MEDS: traZODone 50mg tablet PO SCH (21:35)
--- NOTE | 2023-04-25 22:49 | NUR ---
hakeem Progress Note: [place] Problem: Pt. admitted on a 5150. Client admitted for SI, stated "I just don't want to be here anymore." Hx of ETOH abuse, Bipolar DO, multiple PHF placements. Interventions: Maintained a safe and supportive environment, ensured contract for safety, therapeutic communication and listening, medication administration/education/monitoring, provided clear and simple instructions, and maintained Q15 minute safety checks. Response: Pt was sitting in the group room at change of shift watching tv with peers. Pt denies s/i. Pt is smiling pleasant and social with peers. Pt requested to have trazodone "as late as possible" because he reports not being able to sleep through the night if he has meds to early. Pt had a snack in the group room and watched movies with peers before going to bed. Plan: Pt. continues to require a safe and supportive environment.
[2023-04-26 08:00] VITALS: BP 125/84
[2023-04-26] MEDS: thiamine 100mg tablet PO SCH (08:03)
[2023-04-26] MEDS: multivitamins, therapeutics tablet PO SCH (08:03)
[2023-04-26] MEDS: venlafaxine 25mg tablet PO SCH ×3 (08:03→17:48)
[2023-04-26] MEDS: calcium carbonate 500mg tablet PO SCH ×3 (08:03→17:48)
[2023-04-26] MEDS: buPROPion 75mg tablet PO SCH ×2 (08:03→13:17)
[2023-04-26] MEDS: lithium carbonate 150mg capsule PO SCH ×3 (08:03→17:48)
[2023-04-26] MEDS: cyanocobalamin 500mcg tablet PO SCH (08:04)
[2023-04-26] MEDS: folic acid 1mg tablet PO SCH (08:04)
[2023-04-26] MEDS: methylphenidate 5mg tablet PO SCH ×2 (08:04→13:16)
[2023-04-26] MEDS: nicotine 21mg patch - 24 hr TD SCH (08:05)
[2023-04-26] MEDS: NICOTINE POLACRILEX 2 MG LOZENGE BC PRN ×4 (09:15→20:34)
--- NOTE | 2023-04-26 16:59 | NUR ---
Nursing Progress Note: [place] Problem: Pt. admitted on a 5150. Client admitted for SI, stated "I just don't want to be here anymore." Hx of ETOH abuse, Bipolar DO, multiple PHF placements. Interventions: Maintained a safe and supportive environment, ensured contract for safety, therapeutic communication and listening, medication administration/education/monitoring, provided clear and simple instructions, and maintained Q15 minute safety checks. Response: Patient received sleeping in bed at shift change. He was awoken for breakfast and participated in the group room with peers. Pt was receptive to scheduled medication and 1:1 assessment. He continues to endorse thoughts of SI with no active plan. Patient stating that he is really scared and has been having really bad thoughts keeping him up at night. He continues to report VH of a shadow behind him. Pt denies HI and AH. Does not appear to be responding to IS. He endorsed feeling hopeful to get accepted to [facility]. He was active on the unit the majority of the shift. Pt observed sitting in the group room with peers, noted coloring pictures, socializing, and watching TV. He was noted having a heartfelt conversation with another peer later in the morning. He continues to present as calm, pleasant, social, and cooperative with care. Patient participated on the patio with peers today. He joined for all meal and snack times in the group room this shift. Plan: Pt. continues to require a safe and supportive environment.
--- NOTE | 2023-04-26 17:49 | NUR ---
DIGITAL MARKETING SPECIALIST documentation: I have reviewed all interventions and assessments performed and documented by ALEJANDRA Thorne.
[2023-04-26 19:43] VITALS: BP 109/71
[2023-04-26] MEDS: traZODone 150mg tablet PO SCH (21:50)
--- NOTE | 2023-04-26 22:08 | NUR ---
Nursing Progress Note: [place] Problem: Pt. admitted on a 5150. Client admitted for SI, stated "I just don't want to be here anymore." Hx of ETOH abuse, Bipolar DO, multiple PHF placements. Interventions: Maintained a safe and supportive environment, ensured contract for safety, therapeutic communication and listening, medication administration/education/monitoring, provided clear and simple instructions, and maintained Q15 minute safety checks. Response: Pt was in the group room and change of shift. Although patient is future oriented and hoping to get into a rehab soon, he also reports having passive S/I with no intent. Pt spent time socializing with peers and noted to be smiling and laughing often. Appears to be in a pleasant mood. Pt requests to have meds given closer to 2200 Pts trazodone was increased tonight as he has reported waking during the night with negative thinking. Plan: Pt. continues to require a safe and supportive environment.
[2023-04-27 07:29] VITALS: BP 124/81
[2023-04-27] MEDS: multivitamins, therapeutics tablet PO SCH (08:13)
[2023-04-27] MEDS: venlafaxine 25mg tablet PO SCH ×3 (08:13→17:49)
[2023-04-27] MEDS: lithium carbonate 150mg capsule PO SCH ×3 (08:13→17:49)
[2023-04-27] MEDS: cyanocobalamin 500mcg tablet PO SCH (08:13)
[2023-04-27] MEDS: thiamine 100mg tablet PO SCH (08:13)
[2023-04-27] MEDS: buPROPion 75mg tablet PO SCH ×2 (08:14→12:51)
[2023-04-27] MEDS: methylphenidate 5mg tablet PO SCH ×2 (08:14→12:50)
[2023-04-27] MEDS: folic acid 1mg tablet PO SCH (08:14)
[2023-04-27] MEDS: nicotine 21mg patch - 24 hr TD SCH (08:14)
[2023-04-27] MEDS: calcium carbonate 500mg tablet PO SCH ×3 (08:17→17:49)
--- NOTE | 2023-04-27 08:55 | NUR ---
F/u 04/27: Pt PO fluctuates ~73% avg regular diet w/ double protein TIDWM per order and snacks meeting estimated needs. Noted pt receiving MVI not MVM w/ Fe; WILMAN d/w RN for addition if MD agreeable given gastric bypass hx. LBM 04/26. No nutrition interventions at this time. Will continue to follow. Recommendations: 1) continue regular diet with double protein TID 2) Continue routine thiamin, folic acid, MVM with iron, calcium TID, and vitamin B12 d/t heavy alcohol use and carline-en-y gastric bypass if MD agreeable 3) bowel care PRN 4) weekly wt Addendum: 04/27/23 at [address] Amended: Links added.
[2023-04-27] MEDS: NICOTINE POLACRILEX 2 MG LOZENGE BC PRN ×3 (10:08→18:59)
--- NOTE | 2023-04-27 17:12 | NUR ---
Nursing Progress Note: [place] Problem: Pt. admitted on a 5150. Client admitted for SI, stated "I just don't want to be here anymore." Hx of ETOH abuse, Bipolar DO, multiple PHF placements. Interventions: Maintained a safe and supportive environment, ensured contract for safety, therapeutic communication and listening, medication administration/education/monitoring, provided clear and simple instructions, and maintained Q15 minute safety checks. Response: Patient awakened and was social with peers in the community room, playing games with his peers. During 1:1, patient reports that he is not sleeping well, that he wakes up between 3-4 a.m. and has suicidal thoughts of hanging himself on the door at night. Patient does state that he has the protective factor of his daughter, making sure he is okay so that he can see her again. Patient went outside for group and went to [facility] group. Patient is insightful, pleasant and cooperative. Plan: Pt. continues to require a safe and supportive environment.
[2023-04-27 19:00] VITALS: BP 117/86
[2023-04-27] MEDS: traZODone 150mg tablet PO SCH (21:43)
--- NOTE | 2023-04-28 01:18 | NUR ---
Nursing Progress Note: Ambrocio Problem: Pt. admitted on a 5150. Client admitted for SI, stated "I just don't want to be here anymore." Hx of ETOH abuse, Bipolar DO, multiple PHF placements. Interventions: Maintained a safe and supportive environment, ensured contract for safety, therapeutic communication and listening, medication administration/education/monitoring, provided clear and simple instructions, and maintained Q15 minute safety checks. Response: Received pt. sitting in the community room socializing, watching TV and coloring with peers. Pt. is pleasant and cooperative. Pt. participated in evening snack. He remained in the community room until closing. Pt. reports that he has been having negative thoughts and they seem to be vivid thoughts of "hanging himself from the door or driving a car off of a jeaneth". Pt. understands safety for contract. Pt. requested to have his trazodone at 2145 . PRN nicotine lozenge provided this evening. Observed and appears to be sleeping at this time without difficulty. Plan: Pt. continues to require a safe and supportive environment.
[2023-04-28 08:00] VITALS: BP 126/92
[2023-04-28] MEDS: thiamine 100mg tablet PO SCH (08:19)
[2023-04-28] MEDS: cyanocobalamin 500mcg tablet PO SCH (08:19)
[2023-04-28] MEDS: buPROPion 75mg tablet PO SCH ×2 (08:20→14:03)
[2023-04-28] MEDS: multivitamins, therapeutics tablet PO SCH (08:20)
[2023-04-28] MEDS: folic acid 1mg tablet PO SCH (08:20)
[2023-04-28] MEDS: lithium carbonate 150mg capsule PO SCH ×3 (08:20→17:04)
[2023-04-28] MEDS: calcium carbonate 500mg tablet PO SCH ×3 (08:20→17:04)
[2023-04-28] MEDS: venlafaxine 25mg tablet PO SCH ×3 (08:21→17:04)
[2023-04-28] MEDS: methylphenidate 5mg tablet PO SCH ×2 (08:21→14:02)
[2023-04-28] MEDS: nicotine 21mg patch - 24 hr TD SCH (08:23)
--- NOTE | 2023-04-28 10:35 | NUR ---
CASE MANAGEMENT Met with Ambrocio to check in with him. He reported he left another message for [facility]. He also called [facility] to see if they had sent his medical records to [facility] and they did not have his CAITLIN on file. Manager Validation had sent the completed CAITLIN earlier in the week. Suggested [facility] as an option if he cannot get into rehab for a while. He was agreeable to this. Ambrocio reported he has been having "dark thoughts" in which he thinks about ways he can harm himself. He reported he has thought about hanging himself from the door and also about driving off a jeaneth after he discharges. He reported he let Dr Horan know yesterday and that they discussed possibly placing him back on lithium. Ambrocio reported he has been trying to keep himself busy and stay in the community room. He reported he has the thoughts when he is in his room laying down. Asked him to talk to staff if he is feeling like he might harm himself. Left message for Aleisha at [facility] (ph# [phone], ext [phone]) to check on Ambrocio's application. Completed and sent [facility] referral. RAHAT Montenegro
[2023-04-28] MEDS: NICOTINE POLACRILEX 2 MG LOZENGE BC PRN ×2 (14:04→17:10)
--- NOTE | 2023-04-28 17:24 | NUR ---
NURSING PROGRESS NOTE: HEATHER Problem: Pt. admitted on a 5150. Client admitted for SI, stated "I just don't want to be here anymore." Hx: of ETOH abuse, Bipolar DO, multiple PHF placements. Interventions: One to one completed at bedside to assess suicidal thoughts, utilized therapeutic communication and active listening; ensured contract for safety, maintained a safe and supportive environment, provided clear and simple instructions, encouraged participation in unit activities, maintained Q15 min safety rounds. Response: Received patient sleeping at shift. Pt wakes and joins the unit for breakfast, napping after lunch. Pt reports sleeping like shit. Pt having dark thoughts difficult staying asleep. Pt states I have these thoughts during the day too. They are so real and vivid, I scare myself. Pts thought are about driving his vehicle [place] [address] then drive off a jeaneth, or take a bunch of pills and not wake up. Pt denies any self-harm behaviors and contracts for safety. Pt is visible on the unity, social with peers. He is compliant with medication and care. 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 Plan: Patient continues to voice suicidal thoughts with a plan. Pt requires a safe and therapeutic environment while his medications are being adjusted. Dr. Hogan suggests a possible increase in his [place] to reduce SI.
[2023-04-28 20:00] VITALS: BP 127/84
[2023-04-28] MEDS ORDERED: Melatonin 3mg tablet PO SCH (21:00)
[2023-04-28] MEDS: traZODone 150mg tablet PO SCH (21:45)
--- NOTE | 2023-04-29 02:01 | NUR ---
NURSING PROGRESS NOTE: HEATHER Problem: Pt. admitted on a 5150. Client admitted for SI, stated "I just don't want to be here anymore." Hx: of ETOH abuse, Bipolar DO, multiple PHF placements. Interventions: One to one completed at bedside to assess suicidal thoughts, utilized therapeutic communication and active listening; ensured contract for safety, maintained a safe and supportive environment, provided clear and simple instructions, encouraged participation in unit activities, maintained Q15 min safety rounds. Response: Pt. was received watching TV in the community room and socializing with peers at change of shift. Pt. participated in evening snack. He is pleasant and cooperative. Pt. states when he is in his room that's when the thoughts begin . He reports that the thoughts seem real and that's why he likes to remain out of his room during the day. He took all night medications without difficulty. Melatonin 9mg was started tonight. Pt. observed and appears to be sleeping without issue. Nicotine patch removed. Plan: Patient continues to voice suicidal thoughts with a plan. Pt requires a safe and therapeutic environment while his medications are being adjusted. Dr. Hogan suggests a possible increase in his [place] to reduce SI.
[2023-04-29] MEDS: NICOTINE POLACRILEX 2 MG LOZENGE BC PRN ×5 (03:38→20:55)
[2023-04-29 07:00] VITALS: BP 100/65
[2023-04-29] MEDS: venlafaxine 25mg tablet PO SCH ×3 (07:39→17:09)
[2023-04-29] MEDS: calcium carbonate 500mg tablet PO SCH ×3 (07:40→17:10)
[2023-04-29] MEDS: lithium carbonate 150mg capsule PO SCH ×3 (07:40→17:10)
[2023-04-29] MEDS: thiamine 100mg tablet PO SCH (07:40)
[2023-04-29] MEDS: folic acid 1mg tablet PO SCH (07:40)
[2023-04-29] MEDS: buPROPion 75mg tablet PO SCH ×2 (07:40→12:41)
[2023-04-29] MEDS: methylphenidate 5mg tablet PO SCH ×2 (07:40→12:40)
[2023-04-29] MEDS: cyanocobalamin 500mcg tablet PO SCH (07:41)
[2023-04-29] MEDS: multivitamins, therapeutics tablet PO SCH (07:41)
[2023-04-29] MEDS: nicotine 21mg patch - 24 hr TD SCH (07:41)
[2023-04-29] MEDS ORDERED: SONATA 10 MG PO PRN (11:00)
--- NOTE | 2023-04-29 17:14 | NUR ---
NURSING PROGRESS NOTE: HEATHER Problem: Pt. admitted on a 5150. Client admitted for SI, stated "I just don't want to be here anymore." Hx: of ETOH abuse, Bipolar DO, multiple PHF placements. Interventions: One to one completed at bedside to assess suicidal thoughts, utilized therapeutic communication and active listening; ensured contract for safety, maintained a safe and supportive environment, provided clear and simple instructions, encouraged participation in unit activities, maintained Q15 min safety rounds. Response: Received patient awake at change of shift. Patient is sitting in the community room with 3 other peers who sit together all day long and they tell life stories, encourage one another, and joke around together. He is now sitting with peers in the hallway and listening to a peer play guitar and sing. Patient reports that he did not sleep well last night, per his usual. At night when he wakes up he thinks of ways to commit suicide, but instead of staying in his room, he has been getting up at night around 03:[address]ways. Dr. Hogan ordered Sonata to assist with sleep, pharmacy does not carry it, and they would not be able to get it before Monday when meds are ordered and received. Patient is medication compliant, friendly, and cooperative. He is uplifting to peers. Plan: Patient continues to voice suicidal thoughts with a plan. Pt requires a safe and therapeutic environment while his medications are being adjusted. Dr. Hogan suggests a possible increase in his [place] to reduce SI.
[2023-04-29 19:58] VITALS: BP 105/67
[2023-04-29] MEDS: hydrOXYzine 25 MG tablet PO SCH (21:51)
[2023-04-29] MEDS: traZODone 150mg tablet PO SCH (21:51)
--- NOTE | 2023-04-30 03:16 | NUR ---
NURSING PROGRESS NOTE: HEATHER Problem: Pt. admitted on a 5150. Client admitted for SI, stated "I just don't want to be here anymore." Hx: of ETOH abuse, Bipolar DO, multiple PHF placements. Interventions: One to one completed at bedside to assess suicidal thoughts, utilized therapeutic communication and active listening; ensured contract for safety, maintained a safe and supportive environment, provided clear and simple instructions, encouraged participation in unit activities, maintained Q15 min safety rounds. Response: Received pt. sitting in the community room with peers at change of shift. Pt. participated in evening snack and spends his evenings in the community room socializing. He denies SI but continues to report having vivid thoughts of driving off a jeaneth. Pt. is medication compliant. PRN nicotine lozenge provided. Nicotine patch removed. Observed and appears to be sleeping at this time. Plan: Patient continues to voice suicidal thoughts with a plan. Pt requires a safe and therapeutic environment while his medications are being adjusted. Dr. Hogan suggests a possible increase in his [place] to reduce SI.
[2023-04-30] MEDS: venlafaxine 25mg tablet PO SCH ×3 (07:57→16:45)
[2023-04-30] MEDS: nicotine 21mg patch - 24 hr TD SCH (07:57)
[2023-04-30] MEDS: multivitamins, therapeutics tablet PO SCH (07:58)
[2023-04-30] MEDS: buPROPion 75mg tablet PO SCH ×2 (07:58→12:29)
[2023-04-30] MEDS: calcium carbonate 500mg tablet PO SCH ×3 (07:58→16:45)
[2023-04-30] MEDS: methylphenidate 5mg tablet PO SCH ×2 (07:58→12:29)
[2023-04-30] MEDS: cyanocobalamin 500mcg tablet PO SCH (07:58)
[2023-04-30] MEDS: thiamine 100mg tablet PO SCH (07:59)
[2023-04-30] MEDS: lithium carbonate 150mg capsule PO SCH ×3 (07:59→16:45)
[2023-04-30] MEDS: folic acid 1mg tablet PO SCH (07:59)
[2023-04-30 08:00] VITALS: BP 131/88
[2023-04-30] MEDS: NICOTINE POLACRILEX 2 MG LOZENGE BC PRN (08:48)
--- NOTE | 2023-04-30 17:25 | NUR ---
NURSING PROGRESS NOTE: HEATHER Problem: Pt. admitted on a 5150. Client admitted for SI, stated "I just don't want to be here anymore." Hx: of ETOH abuse, Bipolar DO, multiple PHF placements. Interventions: One to one completed at bedside to assess suicidal thoughts, utilized therapeutic communication and active listening; ensured contract for safety, maintained a safe and supportive environment, provided clear and simple instructions, encouraged participation in unit activities, maintained Q15 min safety rounds. Response: Received report from the neon sign servicer nurse. Patient was checked on with no acute distress, sleeping in his bed. Has been in the community room a good portion of the day playing board games with peers and interacting appropriately. Has had good nutritional intake today and has tolerated all medications today. I put in the SBAR that the pt should be due for a lithium panel soon due to no current levels. Patient stated he has been having "very sad episodes today and almost gets teary eyed. The only reason why he is here is because of his daughter." I reassured him that he has purpose here. No active SI, denies. Otherwise, his mood has been appropriate and pleasant today. 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 Denies SI, , Plan: Patient continues to voice suicidal thoughts with a plan. Pt requires a safe and therapeutic environment while his medications are being adjusted. Dr. Hogan suggests a possible increase in his [place] to reduce SI.
[2023-04-30 20:00] VITALS: BP 112/76
[2023-04-30] MEDS: hydrOXYzine 25 MG tablet PO SCH (21:44)
[2023-04-30] MEDS: traZODone 150mg tablet PO SCH (21:45)
--- NOTE | 2023-05-01 01:18 | NUR ---
NURSING PROGRESS NOTE: HEATHER Problem: Pt. admitted on a 5150. Client admitted for SI, stated "I just don't want to be here anymore." Hx: of ETOH abuse, Bipolar DO, multiple PHF placements. Interventions: One to one completed at bedside to assess suicidal thoughts, utilized therapeutic communication and active listening; ensured contract for safety, maintained a safe and supportive environment, provided clear and simple instructions, encouraged participation in unit activities, maintained Q15 min safety rounds. Response: Received pt. sitting in chair outside another peers room socializing. Pt. is pleasant and friendly to staff and peers. Pt. was observed in the community room watching TV w/others. Participated in evening snack. Denies SI. Reports a little depression today and that every now and then he has negative thoughts. Pt. is medication compliant. Nicotine patch removed. Observed and appears to be sleeping without difficulty. Plan: Patient continues to voice suicidal thoughts with a plan. Pt requires a safe and therapeutic environment while his medications are being adjusted. Dr. Hogan suggests a possible increase in his [place] to reduce SI.
--- NOTE | 2023-05-01 05:27 | NUR ---
CUSTOM PROTECTION OFFICER documentation: I have reviewed and agree with all interventions, assessments performed and documented by Monserrat Allen LVN.
[2023-05-01] MEDS: methylphenidate 5mg tablet PO SCH ×2 (07:50→12:30)
[2023-05-01] MEDS: calcium carbonate 500mg tablet PO SCH ×3 (07:50→17:14)
[2023-05-01] MEDS: folic acid 1mg tablet PO SCH (07:50)
[2023-05-01] MEDS: venlafaxine 25mg tablet PO SCH ×3 (07:51→17:14)
[2023-05-01] MEDS: cyanocobalamin 500mcg tablet PO SCH (07:51)
[2023-05-01] MEDS: lithium carbonate 150mg capsule PO SCH ×3 (07:51→17:15)
[2023-05-01] MEDS: buPROPion 75mg tablet PO SCH ×2 (07:51→12:31)
[2023-05-01] MEDS: multivitamins, therapeutics tablet PO SCH (07:51)
[2023-05-01] MEDS: thiamine 100mg tablet PO SCH (07:51)
[2023-05-01] MEDS: nicotine 21mg patch - 24 hr TD SCH (07:52)
[2023-05-01 08:00] VITALS: BP 141/92
[2023-05-01] MEDS: NICOTINE POLACRILEX 2 MG LOZENGE BC PRN ×2 (09:29→14:36)
--- NOTE | 2023-05-01 10:48 | NUR ---
JAZMIN INTERVIEW 2 PM TODAY RAHAT Montenegro
--- NOTE | 2023-05-01 17:31 | NUR ---
NURSING PROGRESS NOTE: HEATHER Problem: Pt. admitted on a 5150. Client admitted for SI, stated "I just don't want to be here anymore." Hx: of ETOH abuse, Bipolar DO, multiple PHF placements. Interventions: One to one completed at bedside to assess suicidal thoughts, utilized therapeutic communication and active listening; ensured contract for safety, maintained a safe and supportive environment, provided clear and simple instructions, encouraged participation in unit activities, maintained Q15 min safety rounds. Response: Received patient sleeping in bed at shift change. Patient awakens and looks sleepy. Patient stated that he was given 300 mg of Trazodone and feels like he cannot fully wake up. Patient went to the bathroom, and states that he saw stars and became hypotensive. Instructed patient to get up slowly and to avoid this. Patient is bradycardic this morning at 52. 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 He states that he would like to get his RN, but none of the classes that he took will count for it. Patient stated that there are expensive fees to pay in order to get it back, and without a job, it makes it difficult. Patient stays out of his room all day, and socializes in the community room with peers. Patient has an appt. with [facility] today. Patient reports that the interview went well. He states that if he gets connected with drug treatment that they will drive him to new destination. Patient feels like there may be a little bit too much freedom. Informed patient that he can stay on campus if he feels that he will be tempted. Patient states understanding. Patient did take a nap in the late afternoon. Patient showered today. Plan: Patient continues to voice suicidal thoughts with a plan. Pt requires a safe and therapeutic environment while his medications are being adjusted. Dr. Hogan suggests a possible increase in his [place] to reduce SI.
[2023-05-01 19:36] VITALS: BP 130/82
[2023-05-01] MEDS: hydrOXYzine 25 MG tablet PO SCH (21:45)
[2023-05-01] MEDS: traZODone 150mg tablet PO SCH (21:45)
--- NOTE | 2023-05-02 01:15 | NUR ---
Nursing Progress Note: Ambrocio Problem: Pt. admitted on a 5150. Client admitted for SI, stated "I just don't want to be here anymore." Hx of ETOH abuse, Bipolar DO, multiple PHF placements. Interventions: Maintained a safe and supportive environment, ensured contract for safety, therapeutic communication and listening, medication administration/education/monitoring, provided clear and simple instructions, and maintained Q15 minute safety checks. Response: Pt was in the group room at change of shift. Pt continues to reports passive s/i at times but is future oriented, talking about going to the [facility]. Pt states he doesnt like that the [facility] [place]" but he can get his truck from home. Pt decided that maybe it is best if he leaves his truck at home. Pt is hopeful he can go to a rehab facility from the [facility]. Pt had snacks and took HS meds, commenting, "this is a lot of meds, I feel like they give me a hangover in the morning." Plan: Pt. continues to require a safe and supportive environment.
[2023-05-02] MEDS: venlafaxine 25mg tablet PO SCH ×3 (07:42→17:17)
[2023-05-02] MEDS: lithium carbonate 150mg capsule PO SCH ×3 (07:42→17:18)
[2023-05-02] MEDS: methylphenidate 5mg tablet PO SCH ×2 (07:43→12:44)
[2023-05-02] MEDS: multivitamins, therapeutics tablet PO SCH (07:43)
[2023-05-02] MEDS: cyanocobalamin 500mcg tablet PO SCH (07:43)
[2023-05-02] MEDS: folic acid 1mg tablet PO SCH (07:43)
[2023-05-02] MEDS: thiamine 100mg tablet PO SCH (07:43)
[2023-05-02] MEDS: buPROPion 75mg tablet PO SCH ×2 (07:43→12:46)
[2023-05-02] MEDS: nicotine 21mg patch - 24 hr TD SCH (07:44)
[2023-05-02] MEDS: calcium carbonate 500mg tablet PO SCH ×3 (07:46→17:17)
[2023-05-02 08:00] VITALS: BP 124/95
[2023-05-02] MEDS: NICOTINE POLACRILEX 2 MG LOZENGE BC PRN ×2 (09:36→21:00)
--- NOTE | 2023-05-02 13:49 | NUR ---
ACCEPTED AT [facility] RAHAT Montenegro
--- NOTE | 2023-05-02 13:50 | NUR ---
Left message with Aleisha (ph# [phone]) at [facility] requesting a call back to follow up on his referral. RAHAT Montenegro
--- NOTE | 2023-05-02 16:05 | NUR ---
Nursing Progress Note: Ambrocio Problem: Pt. admitted on a 5150.Client admitted for SI, stated "I just don't want to be here anymore." Hx of ETOH abuse, Bipolar DO, multiple PHF placements. Currently on 5270. Interventions: Maintained a safe and supportive environment, ensured contract for safety, provided clear and simple instructions, and maintained Q 15min safety checks. Response: Pt. received asleep at shift change. He awoke to to have coffee with other cohorts. He took his medications without hesitation and has requested PRN nicotine shyann. throughout the shift. Pt. endorses thoughts of SI stating I think about suicide in the mornings, using the door to hang myself or to drive off a jeaneth outside he also endorses VH stating I feel an lamar of someone behind me he denies HI, AH, and plans to DC to the [facility] on . He attended group today, and spent most of the shift out in the community room with cohorts. Pt. has good eye contact, good hygiene, unshaven, and wears unit scrubs Plan: Pt. continues to require a safe and supportive environment.
--- NOTE | 2023-05-02 17:24 | NUR ---
TOWER SWITCH OPERATOR documentation: I have reviewed all interventions and assessments performed and documented by ALEJANDRA Rebolledo.
[2023-05-02 19:38] VITALS: BP 98/65
[2023-05-02] MEDS: hydrOXYzine 25 MG tablet PO SCH (21:50)
[2023-05-02] MEDS: traZODone 150mg tablet PO SCH (21:51)
--- NOTE | 2023-05-03 00:13 | NUR ---
Nursing Progress Note: Ambrocio Problem: Pt. admitted on a 5150.Client admitted for SI, stated "I just don't want to be here anymore." Hx of ETOH abuse, Bipolar DO, multiple PHF placements. Currently on 5270. Interventions: Maintained a safe and supportive environment, ensured contract for safety, provided clear and simple instructions, and maintained Q 15min safety checks. Response: Pt was in group room at change of shift. Pt continues to report passive SI during the day. Pt states he is worried about going to the [facility] later this week because of the "freedom" he will have there. He thinks he will be ok if he leaves his car at his parents and transportation is limited. Pt is hopeful he can get accepted into a dual diagnosis rehab facility soon. Pt spent time socializing with peers and watching tv. Pt had snack and requested to take HS meds later at 2145. Pt states he wakes up too early if he takes his meds to early. Pt removed nicotine patch before going to bed. Plan: Pt. continues to require a safe and supportive environment.
[2023-05-03 07:00] VITALS: BP 114/75
[2023-05-03] MEDS: nicotine 21mg patch - 24 hr TD SCH (07:58)
[2023-05-03] MEDS: buPROPion 75mg tablet PO SCH ×2 (07:59→12:47)
[2023-05-03] MEDS: multivitamins, therapeutics tablet PO SCH (07:59)
[2023-05-03] MEDS: folic acid 1mg tablet PO SCH (07:59)
[2023-05-03] MEDS: venlafaxine 25mg tablet PO SCH ×3 (07:59→17:19)
[2023-05-03] MEDS: thiamine 100mg tablet PO SCH (07:59)
[2023-05-03] MEDS: calcium carbonate 500mg tablet PO SCH ×3 (07:59→17:19)
[2023-05-03] MEDS: cyanocobalamin 500mcg tablet PO SCH (07:59)
[2023-05-03] MEDS: methylphenidate 5mg tablet PO SCH ×2 (08:00→12:47)
[2023-05-03] MEDS: lithium carbonate 150mg capsule PO SCH ×3 (08:00→17:19)
[2023-05-03] MEDS: NICOTINE POLACRILEX 2 MG LOZENGE BC PRN (09:31)
--- NOTE | 2023-05-03 17:53 | NUR ---
Nursing Progress Note: Ambrocio Problem: Pt. admitted on a 5150.Client admitted for SI, stated "I just don't want to be here anymore." Hx of ETOH abuse, Bipolar DO, multiple PHF placements. Currently on 5270. Interventions: Maintained a safe and supportive environment, ensured contract for safety, provided clear and simple instructions, and maintained Q 15min safety checks. Response: Received patient sleeping in bed at change of shift. Patient awakens and goes into the group room and socializes with his peers. Patient denies SI. Patient is scheduled to DC to [facility] tomorrow, but patient states that they will save him a bed until Monday, if they are still titrating medications. Patient has been in the community room for most of the day. Patient is concerned that he will have too much freedom at [facility], but likes it because his Dr. is next door. Patient is medication compliant. We discussed change that is coming to his life, and patient does not like change. He does state that he will be able to visit his daughter from 5-9 daily. His daughter is staying with his parents for a month. Patients mother came and visited patient today. Plan: Pt. continues to require a safe and supportive environment
[2023-05-03 19:52] VITALS: BP 131/80
[2023-05-03] MEDS: hydrOXYzine 25 MG tablet PO SCH (21:36)
[2023-05-03] MEDS: traZODone 150mg tablet PO SCH (21:36)
--- NOTE | 2023-05-04 04:41 | NUR ---
Nursing Progress Note: Ambrocio Problem: Pt. admitted on a 5150. Client admitted for SI, stated "I just don't want to be here anymore." Hx: of ETOH abuse, Bipolar DO, multiple PHF placements. Interventions: One to one completed at bedside to assess suicidal thoughts, utilized therapeutic communication and active listening; ensured contract for safety, maintained a safe and supportive environment, provided clear and simple instructions, encouraged participation in unit activities, maintain Q15 min safety rounds. Response: Received pt in dining room where he was hanging out with the other peers playing cards. Pt is visible on unit, interacts well with peers and is pleasant and cooperative with staff. Pt states he is still depressed, feeling helpless at times with suicidal thought at times. Pt denies HI/AVH. Im oriented, visible and interacts with others. Pt goes to groups and attends to ADLs. I need to stay a few more days before heading to [facility]. They holding a bed for me. Pt is medication compliant tonight with no PRNs. Monitor for safety through the night. Plan: Patient continues to voice suicidal thoughts with a plan. Pt requires a safe and therapeutic environment while his medications are being adjusted. Dr. Hogan suggests a possible increase in his [place] to reduce SI.
[2023-05-04] MEDS ORDERED: TRAZ150T78 PO (07:03)
[2023-05-04] MEDS ORDERED: FOLI1TAB27 PO (07:03)
[2023-05-04] MEDS ORDERED: BUPR-114 PO ×2 (07:03)
[2023-05-04] MEDS ORDERED: VENL100T4 PO (07:03)
[2023-05-04] MEDS ORDERED: MULT-25 PO (07:03)
[2023-05-04] MEDS ORDERED: CYAN500T71 PO (07:03)
[2023-05-04] MEDS ORDERED: METH-621 PO ×2 (07:03)
[2023-05-04] MEDS ORDERED: LITH150C8 PO (07:03)
[2023-05-04] MEDS ORDERED: NICO-687 TD (07:03)
[2023-05-04 08:00] VITALS: BP 123/87
[2023-05-04] MEDS: thiamine 100mg tablet PO SCH (08:24)
[2023-05-04] MEDS: cyanocobalamin 500mcg tablet PO SCH (08:24)
[2023-05-04] MEDS: calcium carbonate 500mg tablet PO SCH ×3 (08:24→17:54)
[2023-05-04] MEDS: multivitamins, therapeutics tablet PO SCH (08:25)
[2023-05-04] MEDS: buPROPion 75mg tablet PO SCH ×2 (08:25→13:00)
[2023-05-04] MEDS: folic acid 1mg tablet PO SCH (08:25)
[2023-05-04] MEDS: venlafaxine 25mg tablet PO SCH ×3 (08:25→17:54)
[2023-05-04] MEDS: lithium carbonate 150mg capsule PO SCH ×3 (08:25→17:54)
[2023-05-04] MEDS: methylphenidate 5mg tablet PO SCH ×2 (08:25→13:01)
[2023-05-04] MEDS: nicotine 21mg patch - 24 hr TD SCH (08:29)
--- NOTE | 2023-05-04 08:53 | NUR ---
DISCHARGE PLAN Ambrocio has been accepted at [facility] and they can take him on Monday, May 08. Ambrocio and Dr Meyer were both apprised. Ambrocio already has follow up scheduled at [facility]. RAHAT Montenegro
[2023-05-04] MEDS: NICOTINE POLACRILEX 2 MG LOZENGE BC PRN ×2 (09:29→13:07)
--- NOTE | 2023-05-04 13:16 | NUR ---
5270 UP HELD FOR gd
--- NOTE | 2023-05-04 15:48 | NUR ---
Nursing Progress Note: Problem: Pt. admitted on a 5150.Client admitted for SI, stated "I just don't want to be here anymore." Hx of ETOH abuse, Bipolar DO, multiple PHF placements. Currently on 5270. Interventions: Maintained a safe and supportive environment, ensured contract for safety, provided clear and simple instructions, and maintained Q 15min safety checks. Response: Received pt. asleep at change of shift, pt. awoke at approx. 0640. Ambrocio stated, I actually got some good sleep last night. Pt denies A/VH. Pt states he is having minimal suicidal thoughts, I usually have them more in the morning. Pt attended both meals, snack and attended the outing on the patio. Pt has been pleasant, calm and cooperative and continues to be cooperative with medication administration. 1:1 done at bedside. Pt seen socializing with peers in the community room. Plan: Discharge on MondayMay 08 to [facility]. As of today, pt. continues to require a safe and supportive environment
[2023-05-04 20:00] VITALS: BP 111/70
[2023-05-04] MEDS: hydrOXYzine 25 MG tablet PO SCH (21:36)
[2023-05-04] MEDS: traZODone 150mg tablet PO SCH (21:36)
[2023-05-05] MEDS: NICOTINE POLACRILEX 2 MG LOZENGE BC PRN ×4 (04:22→19:41)
--- NOTE | 2023-05-05 04:59 | NUR ---
Nursing Progress Note: Ambrocio Problem: Pt. admitted on a 5150. Client admitted for SI, stated "I just don't want to be here anymore." Hx: of ETOH abuse, Bipolar DO, multiple PHF placements. Interventions: One to one completed at bedside to assess suicidal thoughts, utilized therapeutic communication and active listening; ensured contract for safety, maintained a safe and supportive environment, provided clear and simple instructions, encouraged participation in unit activities, maintain Q15 min safety rounds. Response: Received pt in his room where he was asleep. Woke pt to take his vital signs. Pt is calm, pleasant and cooperative. Pt denies HI/AVH and stated his SI is minimal today. Pt is visible on unit and socializes with his peers. Pt attends groups during the day and went to snack group tonight. Pt is medication compliant tonight. Pt stated he is going to [facility] on Monday. Monitor for safety through the night. Plan: Pt. continues to require a safe and supportive environment.
[2023-05-05 08:00] VITALS: BP 130/80
[2023-05-05] MEDS: folic acid 1mg tablet PO SCH (08:27)
[2023-05-05] MEDS: venlafaxine 25mg tablet PO SCH ×3 (08:27→17:29)
[2023-05-05] MEDS: lithium carbonate 150mg capsule PO SCH ×2 (08:28→12:55)
[2023-05-05] MEDS: thiamine 100mg tablet PO SCH (08:28)
[2023-05-05] MEDS: cyanocobalamin 500mcg tablet PO SCH (08:28)
[2023-05-05] MEDS: calcium carbonate 500mg tablet PO SCH ×3 (08:28→17:30)
[2023-05-05] MEDS: multivitamins, therapeutics tablet PO SCH (08:28)
[2023-05-05] MEDS: methylphenidate 5mg tablet PO SCH ×2 (08:28→12:55)
[2023-05-05] MEDS: buPROPion 75mg tablet PO SCH ×2 (08:29→12:55)
[2023-05-05] MEDS: nicotine 21mg patch - 24 hr TD SCH (08:29)
--- NOTE | 2023-05-05 13:19 | NUR ---
Reassessment: PO intake continues to fluctuate however pt eating well overall, documented with average 67% PO intake since 04/29 on regular diet while receiving double protein TID per diet order meeting estimated nutrient needs. Recommend discontinuing double protein if pt continues with current trends in PO intake. LBM 05/05 per EMR. Will continue to follow and make recommendations as appropriate. Recommendations: 1) Continue regular diet; discontinue double protein TID of pt continues with current trends in meal intake 2) Continue routine Thiamine, Folic acid, MVM with iron, calcium, and vitamin B12 d/t hx EtOH and Vikas-en-Y 3) Bowel care PRN 4) Weekly scaled weights Addendum: 05/05/23 at [address] Amended: Links added.
--- NOTE | 2023-05-05 15:20 | NUR ---
Nursing Progress Note: Problem : Pt. admitted on a 5150. Client admitted for SI, stated "I just don't want to be here anymore." Hx: of ETOH abuse, Bipolar DO, multiple PHF placements. Interventions : Maintained a safe and supportive environment, ensured contract for safety, provided clear and simple instructions, provided active listening and positive encouragement, and maintained Q 15min safety checks. Response : Received pt. sleeping in bed at the beginning of the shift, he awoke and greeted staff appropriately. Pt. attended breakfast in the Group Room, and afterwards 1:1 was completed, pt. presents as cooperative and animated. He jokes with this tag writer stating, I"m alert and oriented and up participating on the unit." Pt. then goes on report that his negative thoughts are decreasing. When questioned regarding S/I, pt. stated, "The thoughts come and go," however he denies any current plan. Pt. continued on to discuss how he slept better last night, and usually has negative thoughts when he is laying in bed awake at night, so better sleep has really helped. When questioned regarding A/V/MCKEON, pt. stated, "Sometimes I feel an aura over my left shoulder, like someone is there." Pt. endorsed some anxiety r/t his upcoming discharge to [facility] on Monday. He stated, "The lack of structure there makes me kind of nervous. I'm going to leave my truck at my parent's house so I'm not tempted to drive off. " Pt. plans to continue to try to get admitted into a dual treatment program in [place]. Pt. remained up throughout the shift interacting appropriately with others. Plan : Pt. continues to require a safe and supportive environment while awaiting placement.
[2023-05-05 20:00] VITALS: BP 121/83
[2023-05-05] MEDS: traZODone 150mg tablet PO SCH (21:52)
[2023-05-05] MEDS: hydrOXYzine 25 MG tablet PO SCH (21:52)
--- NOTE | 2023-05-06 05:06 | NUR ---
Nursing Progress Note: [place] Problem: Pt. admitted on a 5150. Client admitted for SI, stated "I just don't want to be here anymore." Hx: of ETOH abuse, Bipolar DO, multiple PHF placements. Interventions: One to one completed at bedside to assess suicidal thoughts, utilized therapeutic communication and active listening; ensured contract for safety, maintained a safe and supportive environment, provided clear and simple instructions, encouraged participation in unit activities, maintain Q15 min safety rounds. Response: Received pt in day room watching TV with his peers. Pt is sociable with staff and peers. Pt is pleasant, calm and cooperative. Pt is looking forward to leaving on Monday. Im going to [facility] for 30 days then to [place] for a substance abuse program. Pt stated his SI is decreasing and denies HI/AVH. Pt contracts for safety and has a bright affect. Pt is medication compliant and had a nicotine lozenge before medication pass. Monitor for safety. Plan: Pt. continues to require a safe and supportive environment.
[2023-05-06 08:00] VITALS: BP 117/78
[2023-05-06] MEDS: venlafaxine 25mg tablet PO SCH ×3 (08:29→17:38)
[2023-05-06] MEDS: methylphenidate 5mg tablet PO SCH ×2 (08:29→12:55)
[2023-05-06] MEDS: thiamine 100mg tablet PO SCH (08:29)
[2023-05-06] MEDS: folic acid 1mg tablet PO SCH (08:29)
[2023-05-06] MEDS: lithium carbonate 150mg capsule PO SCH ×2 (08:29→12:55)
[2023-05-06] MEDS: cyanocobalamin 500mcg tablet PO SCH (08:29)
[2023-05-06] MEDS: multivitamins, therapeutics tablet PO SCH (08:29)
[2023-05-06] MEDS: buPROPion 75mg tablet PO SCH ×2 (08:29→12:55)
[2023-05-06] MEDS: calcium carbonate 500mg tablet PO SCH ×3 (08:29→17:38)
[2023-05-06] MEDS: nicotine 21mg patch - 24 hr TD SCH (08:33)
--- NOTE | 2023-05-06 17:02 | NUR ---
Nursing Progress Note: [place] Problem : Pt. admitted on a 5150. Client admitted for SI, stated "I just don't want to be here anymore." Hx: of ETOH abuse, Bipolar DO, multiple PHF placements. Interventions : Maintained a safe and supportive environment, ensured contract for safety, provided clear and simple instructions, provided active listening and positive encouragement, and maintained Q 15min safety checks. Response : Received pt. asleep at change of shift, pt. was awoken by nurse. Medications administered and 1:1 done at bedside. Pt attended breakfast, lunch and snack. Pt was calm, cooperative and friendly with video game script writer. Denies A/VH. Pt states my negative thoughts are less, Im not dwelling on them as much. When asked if he is having SI he stated, not currently. Pt continues to feel excited and nervous about his upcoming discharge. Pt spent time in the community room drawing and socializing with peers. Plan : Pt. continues to require a safe and supportive environment while awaiting placement.
[2023-05-06] MEDS: NICOTINE POLACRILEX 2 MG LOZENGE BC PRN (19:17)
[2023-05-06 20:00] VITALS: BP 137/88
[2023-05-06] MEDS: hydrOXYzine 25 MG tablet PO SCH (21:39)
[2023-05-06] MEDS: traZODone 150mg tablet PO SCH (21:40)
--- NOTE | 2023-05-07 02:19 | NUR ---
Nursing Progress Note: [place] Problem : Pt. admitted on a 5150. Client admitted for SI, stated "I just don't want to be here anymore." Hx: of ETOH abuse, Bipolar DO, multiple PHF placements. Interventions : Maintained a safe and supportive environment, ensured contract for safety, provided clear and simple instructions, provided active listening and positive encouragement, and maintained Q 15min safety checks. Response : Received pt. in the community room coloring and socializing with peer. Pt. requested PRN nicotine lozenge. He remained in the CR; participating in evening snack and watching TV. Pt. is medication compliant. Pt. is pleasant and cooperative. Denies SI/HI/VH. Pt states that the AH are better and reports that the Wellbutrin and Effexor seem to be helping . Pt. states he will be leaving Monday. Nicotine patch removed. Observed and appears to be sleeping without difficulty. Plan : Pt. continues to require a safe and supportive environment while awaiting placement.
[2023-05-07 08:00] VITALS: BP 119/82
[2023-05-07] MEDS: methylphenidate 5mg tablet PO SCH ×2 (08:15→13:04)
[2023-05-07] MEDS: multivitamins, therapeutics tablet PO SCH (08:15)
[2023-05-07] MEDS: thiamine 100mg tablet PO SCH (08:15)
[2023-05-07] MEDS: lithium carbonate 150mg capsule PO SCH ×2 (08:15→13:04)
[2023-05-07] MEDS: cyanocobalamin 500mcg tablet PO SCH (08:15)
[2023-05-07] MEDS: folic acid 1mg tablet PO SCH (08:15)
[2023-05-07] MEDS: buPROPion 75mg tablet PO SCH ×2 (08:16→13:04)
[2023-05-07] MEDS: venlafaxine 25mg tablet PO SCH ×3 (08:16→17:06)
[2023-05-07] MEDS: nicotine 21mg patch - 24 hr TD SCH (08:24)
[2023-05-07] MEDS: calcium carbonate 500mg tablet PO SCH ×3 (08:35→17:06)
[2023-05-07] MEDS: NICOTINE POLACRILEX 2 MG LOZENGE BC PRN (15:23)
--- NOTE | 2023-05-07 16:23 | NUR ---
Nursing Progress Note: Problem : Pt. admitted on a 5150. Client admitted for SI, stated "I just don't want to be here anymore." Hx: of ETOH abuse, Bipolar DO, multiple PHF placements. Interventions : Maintained a safe and supportive environment, ensured contract for safety, provided clear and simple instructions, provided active listening and positive encouragement, and maintained Q 15min safety checks. Response : Received pt. asleep at change of shift, pt. was awoken by staff for breakfast. 1:1 done and medications administered. Pt appears to be withdrawn lately. Pt states he is just nervous for his upcoming discharge but continues to feel ready to go. Pt attended meals in the community room. Denies A/VH, SI/HI. Plan : Pt. continues to require a safe and supportive environment while awaiting placement.
[2023-05-07] MEDS ORDERED: ZALEPLON 10 MG CAPSULE PO PRN (18:05)
[2023-05-07 19:48] VITALS: BP 124/78
[2023-05-07] MEDS: traZODone 150mg tablet PO SCH (21:45)
[2023-05-07] MEDS: hydrOXYzine 25 MG tablet PO SCH (21:46)
--- NOTE | 2023-05-08 02:26 | NUR ---
Nursing Progress Note: Problem : Pt. admitted on a 5150. Client admitted for SI, stated "I just don't want to be here anymore." Hx: of ETOH abuse, Bipolar DO, multiple PHF placements. Interventions : Maintained a safe and supportive environment, ensured contract for safety, provided clear and simple instructions, provided active listening and positive encouragement, and maintained Q 15min safety checks. Response : Pt in bed at start of shift. He was not asleep "I'm just resting" Pt isolated to room all shift. Declined to come to group room for snack. Pt pleasant and cooperative. He is looking forward to being discharged to the [facility] tomorrow. He hopes to go from there to a Rehab. Denies A/VH, SI/HI. Plan : Pt. continues to require a safe and supportive environment while awaiting placement.
--- NOTE | 2023-05-08 07:07 | NUR ---
Received message from Aleisha at [facility] (ph# [phone] ext [phone]). She reported they are still waiting on records from [facility] to complete [place]'s application. RAHAT Montenegro
[2023-05-08 08:00] VITALS: BP 116/80
[2023-05-08] MEDS: venlafaxine 25mg tablet PO SCH ×3 (08:04→16:23)
[2023-05-08] MEDS: calcium carbonate 500mg tablet PO SCH ×3 (08:04→16:30)
[2023-05-08] MEDS: folic acid 1mg tablet PO SCH (08:04)
[2023-05-08] MEDS: cyanocobalamin 500mcg tablet PO SCH (08:04)
[2023-05-08] MEDS: thiamine 100mg tablet PO SCH (08:04)
[2023-05-08] MEDS: methylphenidate 5mg tablet PO SCH ×2 (08:04→12:59)
[2023-05-08] MEDS: lithium carbonate 150mg capsule PO SCH ×2 (08:04→12:59)
[2023-05-08] MEDS: multivitamins, therapeutics tablet PO SCH (08:04)
[2023-05-08] MEDS: buPROPion 75mg tablet PO SCH ×2 (08:05→13:11)
[2023-05-08] MEDS: nicotine 21mg patch - 24 hr TD SCH (08:08)
[2023-05-08] MEDS: NICOTINE POLACRILEX 2 MG LOZENGE BC PRN ×2 (10:32→16:26)
--- NOTE | 2023-05-08 11:32 | NUR ---
DISCHARGE PLAN UPDATE Ambrocio has been accepted at [facility]. He still needs ritalin and hydroxyzine ordered from [facility] in order to be able to go to [facility]. Plan is for him to go on Mon pending medications arriving. RAHAT Montenegro
[2023-05-08] MEDS ORDERED: HYDR50TA65 PO (14:51)
[2023-05-08] MEDS ORDERED: BUPR100T13 PO (14:51)
[2023-05-08] MEDS ORDERED: METH-350 PO (14:51)
--- NOTE | 2023-05-08 15:28 | NUR ---
Nursing Progress Note: Problem : Pt. admitted on a 5150. Client admitted for SI, stated "I just don't want to be here anymore." Hx: of ETOH abuse, Bipolar DO, multiple PHF placements. Interventions : Maintained a safe and supportive environment, ensured contract for safety, provided clear and simple instructions, provided active listening and positive encouragement, and maintained Q 15min safety checks. Response : Received pt. asleep at change of shift, pt. awoke for breakfast. 1:1 done and medications administered with no issues. Pt stated he slept off and on throughout the night, Dr. Horan working out the details of sleeping medications. Pt was notified his discharge will not be happening till Thursday 05/10 now. Pt felt "ok" about this stating, its all the same now. Pt. denies SI/HI, AH/VH. Pt appears to be in better spirits today, seen outside his room more and spending time in the community room. PRN nicotine lozenge utilized. Plan : Pt. continues to require a safe and supportive environment while awaiting placement.
[2023-05-08 19:18] VITALS: BP 111/70
[2023-05-08] MEDS: traZODone 150mg tablet PO SCH (21:43)
[2023-05-08] MEDS: hydrOXYzine 25 MG tablet PO SCH (21:43)
--- NOTE | 2023-05-09 02:25 | NUR ---
Nursing Progress Note: Problem : Pt. admitted on a 5150. Client admitted for SI, stated "I just don't want to be here anymore." Hx: of ETOH abuse, Bipolar DO, multiple PHF placements. Interventions : Maintained a safe and supportive environment, ensured contract for safety, provided clear and simple instructions, provided active listening and positive encouragement, and maintained Q 15min safety checks. Response : Pt up in group room at start of shift. He is OK with change in DC plan. He is content to spend a few more days on this unit before going to [facility]. Pt. denies SI/HI, AH/VH. He requested getting his HS meds a little later. Given at 21:45. Pt went to sleep with difficulties. Plan : Pt. continues to require a safe and supportive environment while awaiting placement.
[2023-05-09 07:31] VITALS: BP 117/80
[2023-05-09] MEDS: buPROPion 75mg tablet PO SCH ×2 (08:13→12:45)
[2023-05-09] MEDS: calcium carbonate 500mg tablet PO SCH ×3 (08:13→17:10)
[2023-05-09] MEDS: multivitamins, therapeutics tablet PO SCH (08:13)
[2023-05-09] MEDS: venlafaxine 25mg tablet PO SCH ×3 (08:14→17:10)
[2023-05-09] MEDS: folic acid 1mg tablet PO SCH (08:14)
[2023-05-09] MEDS: thiamine 100mg tablet PO SCH (08:14)
[2023-05-09] MEDS: cyanocobalamin 500mcg tablet PO SCH (08:14)
[2023-05-09] MEDS: methylphenidate 5mg tablet PO SCH ×2 (08:15→12:45)
[2023-05-09] MEDS: lithium carbonate 150mg capsule PO SCH ×3 (08:15→17:10)
[2023-05-09] MEDS: NICOTINE POLACRILEX 2 MG LOZENGE BC PRN ×3 (08:15→21:03)
[2023-05-09] MEDS: nicotine 21mg patch - 24 hr TD SCH (08:20)
--- NOTE | 2023-05-09 13:50 | NUR ---
Nursing Progress Note: [place] Problem : Pt. admitted on a 5150. Client admitted for SI, stated "I just don't want to be here anymore." Hx: of ETOH abuse, Bipolar DO, multiple PHF placements. Interventions : Maintained a safe and supportive environment, ensured contract for safety, provided clear and simple instructions, provided active listening and positive encouragement, and maintained Q 15min safety checks. Response : Received pt. sleeping in bed and in no distress at change of shift. Pt woke and was cooperative with vitals and woke for the day. Pt took AM meds and scheduled meds throughout the day w/o issue. He ate meals well and engaged well in conversation. Pt. denies SI/HI, AH/VH. He showered in the morning and spent most of the day watching movies in community room. Pt states I sit here and worry about the future. Discussed discharge to [facility] and talked about how to utilize the milieu. Pt. denies SI/HI, AH/VH. Plan : Pt. continues to require a safe and supportive environment while awaiting placement
[2023-05-09 20:00] VITALS: BP 110/64
[2023-05-09] MEDS: hydrOXYzine 25 MG tablet PO SCH (21:51)
[2023-05-09] MEDS: traZODone 150mg tablet PO SCH (21:52)
--- NOTE | 2023-05-10 | NUR ---
Nursing Progress Note: [place] Problem : Pt. admitted on a 5150. Client admitted for SI, stated "I just don't want to be here anymore." Hx: of ETOH abuse, Bipolar DO, multiple PHF placements. Interventions : Maintained a safe and supportive environment, ensured contract for safety, provided clear and simple instructions, provided active listening and positive encouragement, and maintained Q 15min safety checks. Response : Pt received in day room. Pt appears glum. Pt will be discharging 05/10/23 to the [facility]. He is tired of his situation of alcoholism. 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 Pt is honest with all his present life issues. He hopes that his time at the [facility] will be fruitful and future hope for a substance abuse program in [place], [place]. He has hopes to see his daughter within the next few weeks. Pt really would like to resume earning wages and find purpose in his life. Therapeutic communication and encouragement provided. Pt is appreciative of all the staff here on the unit. Pt verbalizes he has been consistently negative toward himself. Pt reinforced to use breathing exercises and self-encouragement. Pt aware of alcohol abuse cycle when he doesnt take his medications as ordered. He stated that he will be getting a pill case to carry his afternoon medications. Pt self-aware of how when he doesnt take his medications as ordered has historically lead to drink alcohol. Pt agreed to have future oriented goals instead of cycling in shame/ self-hatred cycle. Pt accessed PRN Nicotine lozenges during shift. Pt compliant with all medications and pleasant with staff. Pt observed socially engaging with peers. Plan : Pt. continues to require a safe and supportive environment while awaiting placement
[2023-05-10 08:00] VITALS: BP 113/77
[2023-05-10] MEDS: methylphenidate 5mg tablet PO SCH ×2 (08:11→12:37)
[2023-05-10] MEDS: nicotine 21mg patch - 24 hr TD SCH (08:11)
[2023-05-10] MEDS: venlafaxine 25mg tablet PO SCH ×2 (08:11→12:36)
[2023-05-10] MEDS: multivitamins, therapeutics tablet PO SCH (08:12)
[2023-05-10] MEDS: lithium carbonate 150mg capsule PO SCH ×2 (08:12→12:37)
[2023-05-10] MEDS: NICOTINE POLACRILEX 2 MG LOZENGE BC PRN (08:12)
[2023-05-10] MEDS: cyanocobalamin 500mcg tablet PO SCH (08:12)
[2023-05-10] MEDS: folic acid 1mg tablet PO SCH (08:12)
[2023-05-10] MEDS: thiamine 100mg tablet PO SCH (08:12)
[2023-05-10] MEDS: buPROPion 75mg tablet PO SCH ×2 (08:12→12:37)
[2023-05-10] MEDS: calcium carbonate 500mg tablet PO SCH ×2 (08:15→12:37)
--- NOTE | 2023-05-10 14:55 | NUR ---
DISCHARGE NOTE: Patient is in a good mood today and is ready to discharge to [facility]. Patient denies SI. Takes all his medication without complaint. Patient is looking forward to the future, visiting with his daughter, being a better brother, son, and father are his goals. Patient is discharged in stable condition.
== END 2023-05-10 14:50 | DRG 751 ==
LOC: ADULT MH 19:35
PROVIDERS: ADMIT Psychiatry & Neurology Psychiatry; ATTEND Psychiatry & Neurology Psychiatry
DX: F33.2 Major depressive disorder, recurrent severe without psychotic features (principal); R45.851 Suicidal ideations; Z20.822 Contact with and (suspected) exposure to COVID-19; E66.01 Morbid (severe) obesity due to excess calories; R35.89 Other polyuria; F10.229 Alcohol dependence with intoxication, unspecified; F10.239 Alcohol dependence with withdrawal, unspecified; D64.9 Anemia, unspecified; F12.90 Cannabis use, unspecified, uncomplicated; F17.210 Nicotine dependence, cigarettes, uncomplicated; Z63.5 Disruption of family by separation and divorce; Z81.8 Family history of other mental and behavioral disorders; Z87.820 Personal history of traumatic brain injury; Z94.7 Corneal transplant status; Z98.84 Bariatric surgery status; Z59.02 Unsheltered homelessness; Z68.38 Body mass index [BMI] 38.0-38.9, adult; Z91.51 Personal history of suicidal behavior; Z79.899 Other long term (current) drug therapy; Z71.6 Tobacco abuse counseling
CPT/HCPCS: 36415; 71045; 80061; 83090; 83540; 87081; 87811; Q0177

== ENCOUNTER 2023-06-30 12:28 | Outpatient (CLI) | payer MEDICAID ==
[~2023-06-30 12:28] MED LIST changes: +CYAN500T71 PO; +FOLI1TAB27 PO; +HYDR50TA65 PO; +LITH150C8 PO; -LITH600C PO; +MULT-25 PO; +NICO-687 TD; -TRAZ-256 PO; +TRAZ150T78 PO; +VENL100T4 PO
== END 2023-06-30 23:59 | disposition home or self-care (01) ==
LOC: RAD 12:28
PROVIDERS: ATTEND Nurse Practitioner Psychiatric/Mental Health
DX: R94.31 Abnormal electrocardiogram [ECG] [EKG] (principal); R00.1 Bradycardia, unspecified; Z79.899 Other long term (current) drug therapy
CPT/HCPCS: 93005

== ENCOUNTER 2024-03-18 14:57 | Emergency (ER) | payer MEDICAID, OTHER ==
[~2024-03-18] VITALS: Ht 185.4 cm; Wt 129.6 kg
[2024-03-18 15:14] VITALS: TEMP 98.1
[2024-03-18 16:08] LABS: ALANINE AMINOTRANSFERASE 30 U/L (12-78); ALBUMIN 4.2 G/DL (3.4-5.0); ALBUMIN/GLOBULIN RATIO 0.9 (1.1-1.5); ALKALINE PHOSPHATASE 192 IU/L (46-116); ANION GAP 15 (8-16); ASPARTATE AMINO TRANSFERASE 52 U/L (10-37); BILIRUBIN,TOTAL 0.6 MG/DL (0.1-1.0); CALCIUM 8.6 MG/DL (8.5-10.1); CHLORIDE 98 MMOL/L (99-107); CREATININE 1.16 MG/DL (0.60-1.10); GLUCOSE 88 MG/DL (70-104); POTASSIUM 4.2 MMOL/L (3.5-5.1); SODIUM 137 MMOL/L (135-145); TOTAL CARBON DIOXIDE 24.2 MMOL/L (24-32); TOTAL PROTEIN 8.8 G/DL (6.4-8.2); eCRCL 93 ML/MIN; eGFR 69 ML/MIN
[2024-03-18 16:10] LABS: BASOPHILS % (AUTO) 0.4 % (0-1); EOSINOPHILS % (AUTO) 0.3 % (0-6); HEMATOCRIT 50.7 % (42.0-52.0); HEMOGLOBIN 16.8 g/dl (14.0-17.9); LYMPHOCYTES # (AUTO) 3.7 X10'3 (1.1-4.8); LYMPHOCYTES % (AUTO) 28.9 % (21-51); MEAN CORPUSCULAR HEMOGLOBIN 30.9 PG (27.0-31.0); MEAN CORPUSCULAR HGB CONC 33.1 g/dL (33.0-36.5); MEAN CORPUSCULAR VOLUME 93.2 FL (78-98); MEAN PLATELET VOLUME 7.4 FL (7.4-10.4); MONOCYTES # (AUTO) 0.5 X10'3 (0-0.9); MONOCYTES % (AUTO) 4.2 % (2-12); NEUTROPHILS # (AUTO) 8.5 X10'3 (1.8-7.7); NEUTROPHILS % (AUTO) 66.2 % (42-75); PLATELET COUNT 325 X10'3 (140-440); RED BLOOD COUNT 5.44 X10'6 (4.70-6.10); RED CELL DISTRIBUTION WIDTH 14.5 % (11.5-14.5); WHITE BLOOD COUNT 12.8 X10'3 (4.5-11.0)
[2024-03-18 16:14] LABS: BLOOD UREA NITROGEN 13 MG/DL (7-18); BUN/CREATININE RATIO 11.2 (10.0-20.0); ETHANOL 372 MG/DL (<10)
[2024-03-18 16:15] LABS: ACETAMINOPHEN < 2.0 UG/ML (10-30)
[2024-03-18 17:29] LABS: LITHIUM < 0.2 MMOL/L (0.8-1.2)
[2024-03-18 20:01] VITALS: BP 161/73; PULSE 114; RESP 16; O2SAT 98
== END 2024-03-18 21:20 | disposition left against medical advice (07) ==
LOC: ER 14:58
DX: F10.129 Alcohol abuse with intoxication, unspecified (principal); Z53.21 Procedure and treatment not carried out due to patient leaving prior to being seen by health care provider
CPT/HCPCS: 36415; 80053; 80178; 80320; 80329; 85025; J7030; 99281

== ENCOUNTER 2024-03-25 10:08 | Emergency (ER) | payer OTHER ==
[~2024-03-25] VITALS: Ht 185.4 cm; Wt 134.2 kg
[2024-03-25 10:15] VITALS: BP 147/107; PULSE 136; RESP 16; TEMP 99.3; O2SAT 96
== END 2024-03-25 22:00 | disposition left against medical advice (07) ==
LOC: ER 10:09
DX: Z04.6 Encounter for general psychiatric examination, requested by authority (principal); Z53.21 Procedure and treatment not carried out due to patient leaving prior to being seen by health care provider